=== PATIENT | male | born 1940 | race African-American/Black ===

== ENCOUNTER 2019-06-22 14:11 | Emergency (ER) | payer MEDICARE ==
--- NOTE | 2019-06-22 14:24 | ER Document Report ---
ED Medical Screen (RME) - General Chief Complaint: Neck Swelling Stated Complaint: NECK SWELLING Time Seen by Provider: 06/22/19 14:18 - HPI Notes: 06/22/19 14:22 Patient is a 78-year-old male with a history of diabetes and hypertension who presents complaining of swelling underneath the right side of his jaw for 4 days without significant pain or discomfort. Patient was seen at an urgent care and they wanted him sent here for evaluation and CT imaging. He is otherwise able to eat and drink without difficulty. Denies drug allergies. No other concerns or complaints. No fever. I have treated and performed a rapid initial assessment of this patient. A comprehensive ED assessment and evaluation of the patient, analysis of test results and completion of medical decision making process will be conducted by additional ED providers. PHYSICAL EXAMINATION: GENERAL: Well-appearing, well-nourished and in no acute distress. A&Ox4. Answers questions appropriately. Neck: + somewhat large swelling/mass to the rt submandibular that is firm and non-tender. No pulsation. No subungual swelling or tenderness. No submental swelling. No tongue protrusion or airway compromise noted. No drooling/hoarseness. - Related Data Allergies/Adverse Reactions: No Known Allergies Allergy (Unverified 06/22/19 14:17) Physical Exam - Vital signs Vitals: Temp Pulse Resp BP Pulse Ox 98 F 100 16 143/73 H 100 06/22/19 14:16 06/22/19 14:16 06/22/19 14:16 06/22/19 14:16 06/22/19 14:16 Course - Vital Signs Vital signs: Temp Pulse Resp BP Pulse Ox 98 F 100 16 143/73 H 100 06/22/19 14:16 06/22/19 14:16 06/22/19 14:16 06/22/19 14:16 06/22/19 14:16
[2019-06-22 14:57] LABS: ABSOLUTE EOSINOPHILS # (AUTO) 0.3 10^3/uL (0.0-0.6); ABSOLUTE LYMPHOCYTES (AUTO) 1.4 10^3/uL (0.5-4.7); ABSOLUTE MONOCYTES (AUTO) 0.6 10^3/uL (0.1-1.4); ABSOLUTE NEUT (AUTO) 3.9 10^3/uL (1.7-8.2); BASOPHILS % (AUTO) 0.8 % (0-2); EOSINOPHILS % (AUTO) 4.7 % (0-6); HEMATOCRIT 39.3 % (37.9-51.0); HEMOGLOBIN 12.5 g/dL (13.5-17.0); LYMPHOCYTES % (AUTO) 22.4 % (13-45); MEAN CORPUSCULAR HGB CONC 31.9 g/dL (32.0-36.0); MEAN CORPUSCULAR VOLUME 82 fl (80-97); MONOCYTES % (AUTO) 9.7 % (3-13); PLATELET COUNT 251 10^3/uL (150-450); RED BLOOD COUNT 4.81 10^6/uL (4.35-5.55); RED CELL DISTRIBUTION WIDTH 14.4 % (11.5-14.0); SEGMENTED NEUTROPHILS % (AUTO) 62.4 % (42-78); TOTAL CELLS COUNTED % (AUTO) 100 %; WHITE BLOOD COUNT 6.3 10^3/uL (4.0-10.5)
[2019-06-22 15:10] LABS: ALBUMIN 4.3 g/dL (3.5-5.0); ALKALINE PHOSPHATASE 101 U/L (38-126); ANION GAP 11 (5-19); ASPARTATE AMINO TRANSFERASE 19 U/L (17-59); BILIRUBIN,DIRECT 0.1 mg/dL (0.0-0.4); BILIRUBIN,TOTAL 0.2 mg/dL (0.2-1.3); BLOOD UREA NITROGEN 28 mg/dL (7-20); CALCIUM 10.3 mg/dL (8.4-10.2); CARBON DIOXIDE 25 mmol/L (22-30); CHLORIDE 108 mmol/L (98-107); POTASSIUM 4.8 mmol/L (3.6-5.0); TOTAL PROTEIN 8.1 g/dL (6.3-8.2)
[2019-06-22 15:14] LABS: GLUCOSE 60 mg/dL (75-110)
--- NOTE | 2019-06-22 15:33 | ER Document Report ---
ED General - General Chief Complaint: Jaw Pain Stated Complaint: NECK SWELLING Time Seen by Provider: 06/22/19 14:18 Mode of Arrival: Ambulatory Information source: Patient Notes: 78-year-old male with history of diabetes high cholesterol hypertension presents emergency department with swelling under the right side of his jaw. Reports it started approximately 6 days ago. He reports he has pain when he is chewing on that side and it hurts to swallow. He is able to chew on the other side without pain but it still hurts to swallow. Denies fever vomiting diarrhea. Patient is just moving here from [place]. Has not been established with a primary care provider yet. He went to an urgent care and they sent him here for a CT. patient reports he swallows liquids without problems. He reports this never happened to him before. - HPI Onset: Other - 6 days Onset/Duration: Persistent Associated symptoms: None Exacerbated by: Food Relieved by: Denies Similar symptoms previously: Yes Recently seen / treated by doctor: Yes - Related Data Allergies/Adverse Reactions: No Known Allergies Allergy (Unverified 06/22/19 14:17) Past Medical History - General Information source: Patient - Social History Smoking Status: Former Smoker Chew tobacco use (# tins/day): No Frequency of alcohol use: None Drug Abuse: None Lives with: Family Family History: None Patient has suicidal ideation: No Patient has homicidal ideation: No - Past Medical History Cardiac Medical History: Reports: Hx Hypercholesterolemia, Hx Hypertension Endocrine Medical History: Reports: Hx Diabetes Mellitus Type 2 GI Medical History: Reports: Hx Ulcer Surgical Hx: Negative Review of Systems - Review of Systems Notes: Review HPI for review of systems., All other systems negative Physical Exam - Vital signs Vitals: Temp Pulse Resp BP Pulse Ox 98 F 100 16 143/73 H 100 06/22/19 14:16 06/22/19 14:16 06/22/19 14:16 06/22/19 14:16 06/22/19 14:16 - General General appearance: Appears well, Alert In distress: None - HEENT Head: Normocephalic Eyes: Normal Conjunctiva: Normal Mouth/Lips: Normal Mucous membranes: Moist Pharynx: Normal. No: Erythema Neck: Lymphadenopathy, Supple - Respiratory Respiratory status: No respiratory distress Chest status: Nontender Breath sounds: Normal - Cardiovascular Rhythm: Regular Heart sounds: Normal auscultation - Abdominal Inspection: Normal Tenderness: Nontender - Extremities General upper extremity: Normal ROM General lower extremity: Normal ROM - Neurological Neuro grossly intact: Yes Cognition: Normal Orientation: AAOx4 Transfer Coma Scale Eye Opening: Spontaneous Transfer Coma Scale Verbal: Oriented Transfer Coma Scale Motor: Obeys Commands Transfer Coma Scale Total: 15 Speech: Normal Cranial nerves: Normal - Psychological Associated symptoms: Normal affect, Normal mood - Skin Skin Temperature: Warm Skin Moisture: Dry Skin Color: Normal Course - Re-evaluation Re-evalutation: 06/22/19 17:03 This 78-year-old male with history of diabetes high blood pressure high cholesterol presents emergency department swelling under the right side of his jaw that he reports just started 6 days ago. No erythema no warmth no pustule to the site no induration. CT shows enlarged right submandibular gland with 2 salivary stones. The patient and his son were instructed on this. They were given information on the importance of monitoring the site for signs of infection. They were also instructed on treatment. They verbalized understanding to all instructions. Her Renal function is 28/1.88 no history of CHF lungs clear patient will receive a liter of fluid to hydrate him. The patient and his son were instructed on the importance of becoming established with a primary care provider if he intends on living in this area to monitor his kidney function and diabetes. They both verbalized understanding. 06/22/19 14:45 06/22/19 14:45 MCV 82 fl (80-97) 06/22/19 14:45 MCH 26.0 pg (27.0-33.4) L 06/22/19 14:45 MCHC 31.9 g/dL (32.0-36.0) L 06/22/19 14:45 RDW 14.4 % (11.5-14.0) H 06/22/19 14:45 Seg Neutrophils % 62.4 % (42-78) 06/22/19 14:45 Chloride 108 mmol/L (98-107) H 06/22/19 14:45 Carbon Dioxide 25 mmol/L (22-30) 06/22/19 14:45 Anion Gap 11 (5-19) 06/22/19 14:45 Est GFR ( Amer) 42 (>60) L 06/22/19 14:45 Glucose 60 mg/dL (75-110) L 06/22/19 14:45 Calcium 10.3 mg/dL (8.4-10.2) H 06/22/19 14:45 Total Bilirubin 0.2 mg/dL (0.2-1.3) 06/22/19 14:45 AST 19 U/L (17-59) 06/22/19 14:45 Alkaline Phosphatase 101 U/L (38-126) 06/22/19 14:45 Total Protein 8.1 g/dL (6.3-8.2) 06/22/19 14:45 Albumin 4.3 g/dL (3.5-5.0) 06/22/19 14:[address] 06/22/19 14:24 IMPRESSION: Asymmetrically enlarged right submandibular gland with 2 sialolith s, largest measuring 11 x 8 mm. No lymphadenopathy or focal drainable collections. 06/22/19 17:10 - Vital Signs Vital signs: Temp Pulse Resp BP Pulse Ox 98.1 F 99 16 147/89 H 99 06/22/19 19:55 06/22/19 19:59 06/22/19 14:16 06/22/19 19:55 06/22/19 19:55 - Laboratory Result Diagrams: 06/22/19 14:45 06/22/19 14:45 Laboratory results interpreted by me: 06/22/19 06/22/19 14:45 14:45 Hgb 12.5 L MCH 26.0 L MCHC 31.9 L RDW 14.4 H Chloride 108 H BUN 28 H Creatinine 1.88 H Est GFR ( Amer) 42 L Est GFR (MDRD) Non-Af 35 L Glucose 60 L Calcium 10.3 H - Diagnostic Test Radiology reviewed: Image reviewed, Reports reviewed Discharge - Discharge Clinical Impression: Submandibular swelling, Parotitis Condition: Stable Disposition: HOME, SELF-CARE Instructions: Family Physicians / Practices, Intravenous (IV) Fluids ([facility]), Acute Parotid Gland Swelling ([facility]) Additional Instructions: *You have been evaluated for swelling under your jaw, parotitis *Drink lots of fluids *Gently massage the swollen area *Suck on sour or lemon flavored candy *Take tylenol or motrin for pain as indicated * Monitor the site for signs of infection such as redness, increased pain, warmth *Follow-up with a primary care provider within one week to become established to recheck the swelling, monitor your diabetes your kidney function and full evaluation. *Return to ED for worsening condition change, needs Forms: Elevated Blood Pressure
--- NOTE | 2019-06-22 16:37 | RADIOLOGY REPORT (SQ) ---
EXAM DESCRIPTION: CT SOFT TISSUE NECK WITH COMPLETED DATE/TIME: 06/22/2019 4:14 pm REASON FOR STUDY: + Rt submandibular swelling/mass on exam COMPARISON: None. TECHNIQUE: Post IV contrasted scanning from skull base through lung apices with review of bone, soft tissue and lung windows. Reconstructed coronal and sagittal MPR images reviewed. All images stored on PACS. All CT scanners at this facility use dose modulation, iterative reconstruction, and/or weight based d osing when appropriate to reduce radiation dose to as low as reasonably achievable (ALARA). [facility]: Dose Right [facility]: CareDose [facility]: Dose Right [facility]: Teradose 4D [facility]: [place] CONTRAST TYPE AND DOSE: 75 ccOmnipaque 300 RENAL FUNCTION: Creatinine 1.8 RADIATION DOSE: CT Rad equipment meets quality standard of care and radiation dose reduction techniq ues were employed. CTDIvol: 12.4 mGy. DLP: 439 mGy-cm. mGy. LIMITATIONS: None. FINDINGS: SKULL BASE: Intact. MAJOR SALIVARY GLANDS: Asymmetric enlargement of the right submandibular gland. There are 2 calcific ations within the right submandibular gland, largest measuring 11 x 8 mm (series 4, image 52). LYMPHADENOPATHY: No adenopathy. MUCOSAL MASSES OR ASYMMETRY: No mucosal masses or asymmetry. LARYNX/CORDS: No abnormal findings. VASCULAR STRUCTURES: The major vessels are patent. LUNG APICES: Clear. BONES: Intact. THYROID: Normal size. No masses. PARANASAL SINUSES: For mild polypoid mucosal thickening in the maxillary sinuses. Remaining sinuses are clear. OTHER: Maxillary denture. Multiple additional missing teeth noted. IMPRESSION: Asymmetrically enlarged right submandibular gland with 2 sialoliths, largest measuring 1 1 x 8 mm. No lymphadenopathy or focal drainable collections. TECHNICAL DOCUMENTATION: JOB ID: [id number] [facility] [id number]: Final reports with documentation of one or more dose reduction techniques (e.g., Automate d exposure control, adjustment of the mA and/or kV according to patient size, use of iterative recons truction technique) 2010 [employer]- All Rights Reserved Reading location - IP/workstation name: [facility]
[2019-06-22] MEDS ORDERED: NORMAL SALINE 1000 ML 1,000 ML IV ONE (16:50)
[2019-06-22 20:00] VITALS: BP 147/89
== END 2019-06-22 19:59 | disposition home or self-care (01) ==
LOC: ER 14:11
DX: K11.20 Sialoadenitis, unspecified (principal); R68.84 Jaw pain; R22.0 Localized swelling, mass and lump, head; E78.00 Pure hypercholesterolemia, unspecified; I10 Essential (primary) hypertension; E11.9 Type 2 diabetes mellitus without complications
CPT/HCPCS: 36415; 85025; 80053; 70491; J7030; 99284

== ENCOUNTER 2020-02-10 00:42 | Inpatient (IN) | payer MEDICARE ==
[2020-02-10 02:01] LABS: ABSOLUTE EOSINOPHILS # (AUTO) 0.2 10^3/uL (0.0-0.6); ABSOLUTE LYMPHOCYTES (AUTO) 1.9 10^3/uL (0.5-4.7); ABSOLUTE MONOCYTES (AUTO) 0.8 10^3/uL (0.1-1.4); ABSOLUTE NEUT (AUTO) 6.7 10^3/uL (1.7-8.2); BASOPHILS % (AUTO) 0.5 % (0-2); EOSINOPHILS % (AUTO) 2.6 % (0-6); HEMATOCRIT 38.2 % (37.9-51.0); HEMOGLOBIN 12.3 g/dL (13.5-17.0); LYMPHOCYTES % (AUTO) 19.4 % (13-45); MEAN CORPUSCULAR HEMOGLOBIN 26.1 pg (27.0-33.4); MEAN CORPUSCULAR HGB CONC 32.1 g/dL (32.0-36.0); MEAN CORPUSCULAR VOLUME 81 fl (80-97); MONOCYTES % (AUTO) 7.9 % (3-13); PLATELET COUNT 345 10^3/uL (150-450); RED CELL DISTRIBUTION WIDTH 15.8 % (11.5-14.0); SEGMENTED NEUTROPHILS % (AUTO) 69.6 % (42-78); TOTAL CELLS COUNTED % (AUTO) 100 %; WHITE BLOOD COUNT 9.6 10^3/uL (4.0-10.5)
--- NOTE | 2020-02-10 02:04 | ER Document Report ---
ED GI/ - General Chief Complaint: Nausea/Vomiting/Diarrhea Stated Complaint: SUGAR ISSUE/STOMACH PAINS Time Seen by Provider: 02/10/20 01:48 Primary Care Provider: JER BRANDT [NO LOCAL MD] - Follow up as needed Notes: CHIEF COMPLAINT: Abdominal discomfort and diarrhea HPI: 79-year-old male presenting to the emergency department complaining of some intermittent abdominal discomfort with diarrhea. Had 2-3 episodes of loose stools over the last 24 hours. States abdominal pain is somewhat generalized and seems to come and go. Patient does feel like his abdomen is slightly distended. Complains of mild low back pain. Has not had a fever. No dysuria. Patient states he was seen at a hospital in [place] earlier in the week for sores in the mouth and some swollen lymph nodes in the neck and was placed on a oral antibiotic he does not recall the name of. Patient reports a history of hypertension, type 1 diabetes, right ocular stroke, high cholesterol. Patient does report that the diarrhea and abdominal distress seem to start after starting the antibiotic. Patient also reports a history of reflux with gastric ulcers ROS: See HPI - all other systems were reviewed and are otherwise negative Constitutional: no fever Eyes: no drainage, no blurred vision ENT: no runny nose, no sore throat Cardiovascular: no chest pain Resp: no SOB, no cough GI: no vomiting, + diarrhea, + abdominal pain : no dysuria Integumentary: no rash Allergy: no hives Musculoskeletal: no extremity pain or swelling Neurological: no numbness/tingling, no weakness MEDICATIONS: I agree with the patient medications as charted by the RN. ALLERGIES: I agree with the allergies as charted by the RN. PAST MEDICAL HISTORY/PAST SURGICAL HISTORY: Reviewed and agree as charted by RN. SOCIAL HISTORY: Reviewed and agree as charted by RN. FAMILY HISTORY: No significant familial comorbid conditions directly related to patient complaint EXAM: Reviewed vital signs as charted by RN. CONSTITUTIONAL: Alert and oriented and responds appropriately to questions. Well-appearing; well-nourished HEAD: Normocephalic; atraumatic EYES: PERRL; Conjunctivae clear, sclerae non-icteric ENT: normal nose; no rhinorrhea; moist mucous membranes; pharynx without lesions noted, no uvula edema or deviation, no tonsillar hypertrophy, phonation normal NECK: Supple without meningismus; non-tender; mild right anterior cervical lymphadenopathy, no masses CARD: RRR; no murmurs, no clicks, no rubs, no gallops; symmetric distal pulses RESP: Normal chest excursion without splinting or tachypnea; breath sounds clear and equal bilaterally; no wheezes, no rhonchi, no rales, pulse oximetry 96% on room air not hypoxic ABD/GI: Normal bowel sounds; mildly distended; soft, non-tender, no rebound, no guarding; no palpable organomegaly or masses. BACK: The back appears normal and is non-tender to palpation, there is no CVA tenderness EXT: Normal ROM in all joints; non-tender to palpation; no cyanosis, no effusions, no edema SKIN: Normal color for age and race; warm; dry; good turgor; no acute lesions noted NEURO: Moves all extremities equally; Motor and sensory function intact PSYCH: The patient's mood and manner are appropriate. Grooming and personal hygiene are appropriate. MDM: 79-year-old male presenting for intermittent abdominal pain with some diarrhea that began after starting antibiotics for some oral ulcers. Does not recall the name of the antibiotic he is taking. Does report a prior history of gastric ulcers. Patient reports some abdominal distention. He does appear to be slightly distended on exam without knowing his baseline exam. Screening labs obtained by nursing via triage process will add CT imaging to evaluate for colitis or other intra-abdominal surgical or infectious processes - Related Data Allergies/Adverse Reactions: No Known Allergies Allergy (Unverified 06/22/19 14:17) Past Medical History - Social History Smoking Status: Never Smoker Family History: None Patient has homicidal ideation: No - Past Medical History Cardiac Medical History: Reports: Hx Hypercholesterolemia, Hx Hypertension Endocrine Medical History: Reports: Hx Diabetes Mellitus Type 2 GI Medical History: Reports: Hx Ulcer Physical Exam - Vital signs Vitals: Temp Pulse Resp BP Pulse Ox 97.6 F 102 H 20 137/81 H 98 02/10/20 01:04 02/10/20 01:04 02/10/20 01:04 02/10/20 01:04 02/10/20 01:04 Course - Re-evaluation Re-evalutation: 02/10/20 02:38 Patient's lactic acid was 2.5. This may be from dehydration given his recent complaints of diarrhea and nonfocal abdominal exam. Will aggressively hydrate, recheck lactic acid after hydration 02/10/20 04:08 I received a call from the reading radiologist, concerned about a sigmoid volvulus. I spoke with Dr. Mathew the surgeon, he will come down to see the pat ient. He does request a 30 chest tube as we will need to place a rectal tube. Discussed with Dr. Sands attending 02/10/20 04:55 Dr. Mathew at bedside to evaluate patient, admit to his service. - Vital Signs Vital signs: Temp Pulse Resp BP Pulse Ox 97.6 F 102 H 20 137/81 H 98 02/10/20 01:16 02/10/20 01:04 02/10/20 01:04 02/10/20 01:04 02/10/20 01:04 - Laboratory Result Diagrams: 02/10/20 01:39 02/10/20 01:39 Laboratory results interpreted by me: 02/10/20 02/10/20 02/10/20 01:39 01:39 01:52 Hgb 12.3 L MCH 26.1 L RDW 15.8 H Carbon Dioxide 20 L BUN 24 H Creatinine 1.62 H Est GFR ( Amer) 50 L Est GFR (MDRD) Non-Af 41 L Glucose 171 H POC Glucose 127 H Lactic Acid Alkaline Phosphatase 128 H 02/10/20 02:06 Hgb MCH RDW Carbon Dioxide BUN Creatinine Est GFR ( Amer) Est GFR (MDRD) Non-Af Glucose POC Glucose Lactic Acid 2.5 H Alkaline Phosphatase Discharge - Discharge Clinical Impression: Volvulus of sigmoid colon Condition: Stable Disposition: ADMITTED INPATIENT Admitting Provider: Manishaist Kiesha Mathew Unit Admitted: Surgical Floor Referrals: LOCALMD,NO [NO LOCAL MD] - Follow up as needed
[2020-02-10 02:25] LABS: ALBUMIN 3.8 g/dL (3.5-5.0); ALKALINE PHOSPHATASE 128 U/L (38-126); ANION GAP 14 (5-19); ASPARTATE AMINO TRANSFERASE 26 U/L (17-59); BILIRUBIN,DIRECT 0.1 mg/dL (0.0-0.4); BILIRUBIN,TOTAL 0.4 mg/dL (0.2-1.3); BLOOD UREA NITROGEN 24 mg/dL (7-20); CALCIUM 9.3 mg/dL (8.4-10.2); CARBON DIOXIDE 20 mmol/L (22-30); CHLORIDE 107 mmol/L (98-107); GLUCOSE 171 mg/dL (75-110); POTASSIUM 3.6 mmol/L (3.6-5.0); TOTAL PROTEIN 8.2 g/dL (6.3-8.2)
[2020-02-10] MEDS ORDERED: NORMAL SALINE 1000 ML 1,000 ML IV ONE (02:29)
[2020-02-10] MEDS ORDERED: RINGERS SOLUTION,LACTATED 1,000 ML IV ONE (02:38)
[2020-02-10] MEDS ORDERED: ONDANSETRON HCL INJ/PF 4 MG/2 ML SDV IV ONE (03:00)
--- NOTE | 2020-02-10 03:56 | RADIOLOGY REPORT (SQ) ---
EXAM DESCRIPTION: RadLex: CT ABDOMEN PELVIS WITH IV CONTRAST CLINICAL HISTORY: 79 years Male; abd distention; TECHNIQUE: CT of the abdomen and pelvis using intravenous contrast. All CT scans at this facility use dose modulation, iterative reconstruction, and/or weight based dosing when appropriate to reduce radiation dose to as low as reasonably achievable. COMPARISON: None. FINDINGS: Abdomen: Stomach: No significant distention or surrounding edema. Liver:No focal lesions. No intrahepatic ductal distention. Gallbladder:Nondistended Pancreas:Within normal limits Spleen:Within normal limits Right kidney:No hydronephrosis. No focal lesion. Left kidney: Exophytic lower pole cyst 6.2 cm diameter. No hydronephrosis. Adrenal glands:Within normal limits Vascular structures:Within normal limits Pelvis: Small bowel: Mild moderately distended segments, especially in the distal small bowel, with scattered air-fluid levels. Appendix:Within normal limits Colon: There is significant distention of the majority of the colon, with transition point in the sigmoid colon. Maximum diameter is approximately 8 cm. No pneumatosis or focal wall thickening. The configuration of the transition point suggests internal hernia. There is only slight mesenteric rotation. No free intraperitoneal fluid or air. Bones: Chronic degenerative changes throughout the lumbar spine. L5-S1: Irregular mixed lytic sclerotic changes in the S1 superior endplate. No associated prevertebral edema. Degree of central canal stenosis cannot be reliably assessed due to artifact. Bladder: Unremarkable. Prostate: Enlarged, 5.3 cm wide. IMPRESSION: 1. Colonic obstruction with transition point in the sigmoid colon, indeterminate for sigmoid volvulus versus an internal hernia (although likely sigmoid volvulus). Maximum colonic diameter (at the cecum) 8 cm. 2. No perforation or abscess. 3. Other chronic findings as described.
[2020-02-10] MEDS ORDERED: ONDANSETRON HCL INJ/PF 4 MG/2 ML SDV IV PRN (05:14)
[2020-02-10] MEDS ORDERED: DEXTROSE 50%-WATER 25 GM/50 ML DISP.SYRIN IV PRN ×2 (05:18)
[2020-02-10] MEDS ORDERED: DEXTROSE 40% GEL 15 GM TUBE PO PRN ×2 (05:18)
[2020-02-10] MEDS ORDERED: GLUCAGON,HUMAN RECOMB 1 MG INJ IM PRN (05:18)
--- NOTE | 2020-02-10 06:02 | RADIOLOGY REPORT (SQ) ---
ABDOMINAL RADIOGRAPH: 02/10/2020 5:01 AM CDT COMPARISON: CT of abdomen and pelvis from 02/10/2020 TECHNIQUE: A single radiograph of the abdomen was obtained. HISTORY: 79-year old with abdominal pain. FINDINGS: Only the lower abdomen was included on this examination. The lung bases were not fully included on this examination. The visualized bowel gas pattern is nonspecific and nonobstructive. No abnormal intra-abdominal calcifications are seen. There are no findings to suggest organomegaly. There is a moderate amount of stool projecting throughout the colon. There is a tube overlying the midline abdomen. Multilevel degenerative changes are seen within the lumbar spine. IMPRESSION: The bowel gas pattern is nonobstructive and nonspecific.
[2020-02-10 07:17] LABS: APPEARANCE,URINE CLEAR; BILIRUBIN,URINE NEGATIVE (NEGATIVE); COLOR,URINE YELLOW; GLUCOSE, URINE NEGATIVE (NEGATIVE); KETONES,URINE NEGATIVE (NEGATIVE); LEUKOCYTE ESTERASE,URINE NEGATIVE (NEGATIVE); NITRITE,URINE NEGATIVE (NEGATIVE); PROTEIN,URINE 30 mg/dL (NEGATIVE); UROBILINOGEN,URINE NEGATIVE mg/dL (<2.0)
[2020-02-10] MEDS: INSULIN LISPRO 100 UNIT/ML 3 ML VIAL SUBCUT SCH ×4 (08:35→22:00)
--- NOTE | 2020-02-10 10:51 | Operative Report ---
Nonrecallable Operative Report DATE OF SURGERY: 02/10/20 PREOPERATIVE DIAGNOSIS: Sigmoid volvulus POSTOPERATIVE DIAGNOSIS: Same as above OPERATION: Placement of rectal tube for sigmoid volvulus/colonic decompression SURGEON: CHARLIE MCDONOUGH ANESTHESIA: Other - None TISSUE REMOVED OR ALTERED: None COMPLICATIONS: None apparent ESTIMATED BLOOD LOSS: None PROCEDURE: Drains/implants 30 Faroese chest tube inserted into rectum. Procedure in detail: After informed consent was obtained from the patient, he was laid in the left lateral decubitus position in the emergency room. Using a large amount of water-soluble lubricant, and a 30 [place]oese chest tube was very carefully inserted into the anus, and up the rectum. A large reveles of air was noted. The rectal tube was then secured in place using silk tape. The patient's abdominal distention immediately resolved. The patient tolerated the procedure well. The procedure was concluded. Condition: Fair.
--- NOTE | 2020-02-10 10:59 | PDOC H&P ---
History of Present Illness Patient complains of: Abdominal distention and pain History of Present Illness: CHRISTY CANO is a 79 year old male with a history of well-controlled diabetes and hypertension (controlled with medications). The patient reports a 1 day history of abdominal distention and discomfort. This is a new finding. He has never experienced symptoms like this before. His pain and distention occur throughout the abdominal cavity. He rates his pain as 2 out of 10. It is dull and aching. His main complaint is abdominal distention, which is severe. Nothing makes his symptoms better or worse. The patient last passed flatus 12 to 18 hours ago. His last bowel movement was 2 days ago. The patient denies chest pain, shortness of breath, fevers, chills, orthostasis, dizziness, malaise, fatigue, melena, hematochezia, hematemesis. He does report nausea without vomiting. Past Medical History Cardiac Medical History: Reports: Hyperlipidema, Hypertension Endocrine Medical History: Reports: Diabetes Mellitus Type 2 Social History Smoking Status: Never Smoker Frequency of Alcohol Use: None Hx Recreational Drug Use: No Hx Prescription Drug Abuse: No Family History Family History: None Parental Family History Reviewed: Yes Children Family History Reviewed: Yes Sibling(s) Family History Reviewed.: Yes Medication/Allergy Allergies/Adverse Reactions: No Known Allergies Allergy (Unverified 06/22/19 14:17) Review of Systems Constitutional: ABSENT: anorexia, chills, fatigue, fever(s), headache(s) Eyes: ABSENT: visual disturbances Ears: ABSENT: hearing changes Nose, Mouth, and Throat: ABSENT: sore throat Cardiovascular: ABSENT: chest pain Respiratory: ABSENT: cough, dyspnea Gastrointestinal: PRESENT: abdominal pain, bloating, constipation, nausea. ABS ENT: hematemesis, hematochezia, melena, vomiting Genitourinary: ABSENT: dysuria Musculoskeletal: ABSENT: back pain Integumentary: ABSENT: pruritus, rash Neurological: ABSENT: confusion, convulsions, dizziness Psychiatric: ABSENT: anxiety, depression Endocrine: ABSENT: cold intolerance, heat intolerance Hematologic/Lymphatic: ABSENT: easy bleeding, easy bruising Physical Exam Vital Signs: Temp Pulse Resp BP Pulse Ox 97.6 F 102 H 20 137/81 H 98 02/10/20 01:16 02/10/20 01:04 02/10/20 01:04 02/10/20 01:04 02/10/20 01:04 Intake & Output 02/08/20 02/09/20 02/10/20 06:59 06:59 06:59 Weight 77.6 kg General appearance: PRESENT: no acute distress, cooperative. ABSENT: disheveled Head exam: PRESENT: atraumatic, normocephalic Eye exam: PRESENT: EOMI, PERRLA. ABSENT: scleral icterus Mouth exam: PRESENT: moist, neck supple Neck exam: ABSENT: meningismus, tenderness, thyromegaly, tracheal deviation Respiratory exam: PRESENT: unlabored. ABSENT: tachypnea, wheezes Cardiovascular exam: PRESENT: RRR Vascular exam: PRESENT: normal capillary refill GI/Abdominal exam: PRESENT: distended - Severe distention, firm - Related to severe distention, soft, tenderness - mild. ABSENT: guarding, rebound Rectal exam: PRESENT: deferred Extremities exam: ABSENT: clubbing Musculoskeletal exam: ABSENT: deformity Neurological exam: PRESENT: alert, awake, oriented to person, oriented to place, oriented to time, oriented to situation, CN II-XII grossly intact. ABSENT: motor sensory deficit Psychiatric exam: ABSENT: agitated, anxious, depressed Focused psych exam: ABSENT: delusional Skin exam: ABSENT: cyanosis, erythema, jaundice Results Laboratory Results: 02/10/20 01:39 02/10/20 01:39 02/10/20 02/10/20 02/10/20 01:39 01:39 01:39 WBC 9.6 RBC 4.70 Hgb 12.3 L Hct 38.2 MCV 81 MCH 26.1 L MCHC 32.1 RDW 15.8 H Plt Count 345 Seg Neutrophils % 69.6 Sodium 140.7 Potassium 3.6 Chloride 107 Carbon Dioxide 20 L Anion Gap 14 BUN 24 H Creatinine 1.62 H Est GFR ( Amer) 50 L Glucose 171 H Lactic Acid Calcium 9.3 Total Bilirubin 0.4 AST 26 Alkaline Phosphatase 128 H Total Protein 8.2 Albumin 3.8 Lipase 96.9 02/10/20 02:06 WBC RBC Hgb Hct MCV MCH MCHC RDW Plt Count Seg Neutrophils % Sodium Potassium Chloride Carbon Dioxide Anion Gap BUN Creatinine Est GFR ( Amer) Glucose Lactic Acid 2.5 H Calcium Total Bilirubin AST Alkaline Phosphatase Total Protein Albumin Lipase Impressions: Abdomen/Pelvis CT 02/10/20 01:59 IMPRESSION: 1. Colonic obstruction with transition point in the sigmoid colon, indeterminate for sigmoid volvulus versus an internal hernia (although likely sigmoid volvulus). Maximum colonic diameter (at the cecum) 8 cm. 2. No perforation or abscess. 3. Other chronic findings as described. Assessment & Plan - Diagnosis (1) Volvulus of sigmoid colon Is this a current diagnosis for this admission?: Yes - Plan Summary Plan Summary: This is a 79-year-old male with obstipation and a CT scan concerning for sigmoid volvulus. I will admit the patient to the hospital. I will place a rectal tube for decompressive purposes. If the rectal tube is unsuccessful, the patient may require decompressive colonoscopy. Due to the high recurrence rate of sigmoid volvulus, I have recommended sigmoidectomy for the patient. He wishes to discuss his options with his family before making any decisions. I will keep him n.p.o. for now, and plan to place a rectal tube at bedside. Further recommendations will depend on the patient's clinical course.
[2020-02-10] MEDS: NORMAL SALINE 1000 ML 1,000 ML IV PRN (20:22)
[2020-02-11] MEDS: NORMAL SALINE 1000 ML 1,000 ML IV PRN ×2 (03:29→10:51)
[2020-02-11 05:20] LABS: ABSOLUTE EOSINOPHILS # (AUTO) 0.3 10^3/uL (0.0-0.6); ABSOLUTE LYMPHOCYTES (AUTO) 1.6 10^3/uL (0.5-4.7); ABSOLUTE MONOCYTES (AUTO) 0.9 10^3/uL (0.1-1.4); BASOPHILS % (AUTO) 0.4 % (0-2); EOSINOPHILS % (AUTO) 3.1 % (0-6); HEMATOCRIT 32.8 % (37.9-51.0); HEMOGLOBIN 10.6 g/dL (13.5-17.0); LYMPHOCYTES % (AUTO) 16.1 % (13-45); MEAN CORPUSCULAR HGB CONC 32.5 g/dL (32.0-36.0); MEAN CORPUSCULAR VOLUME 80 fl (80-97); MONOCYTES % (AUTO) 9.5 % (3-13); PLATELET COUNT 276 10^3/uL (150-450); RED BLOOD COUNT 4.09 10^6/uL (4.35-5.55); RED CELL DISTRIBUTION WIDTH 15.4 % (11.5-14.0); SEGMENTED NEUTROPHILS % (AUTO) 70.9 % (42-78); TOTAL CELLS COUNTED % (AUTO) 100 %; WHITE BLOOD COUNT 9.9 10^3/uL (4.0-10.5)
[2020-02-11 05:51] LABS: ANION GAP 5 (5-19); BLOOD UREA NITROGEN 22 mg/dL (7-20); CALCIUM 8.6 mg/dL (8.4-10.2); CARBON DIOXIDE 21 mmol/L (22-30); CHLORIDE 115 mmol/L (98-107); GLUCOSE 131 mg/dL (75-110)
[2020-02-11] MEDS: INSULIN LISPRO 100 UNIT/ML 3 ML VIAL SUBCUT SCH ×4 (07:47→21:34)
[2020-02-11] MEDS ORDERED: POLYETHYLENE GLYCOL 3350 POWDER 17 GM/1 PACKET PO ONE ×3 (09:00→21:30)
--- NOTE | 2020-02-11 14:15 | PDOC CONSULTATION ---
Consultation Consult Date: 02/11/20 Attending physician:: JODIE MAURICIO Provider Consulted: INGRID CHRISTIANSON Consult reason:: Medical management History of Present Illness Admission Date/PCP: 02/10/20 05:09 Patient complains of: Peter pain History of Present Illness: CHRISTY CANO is a 79 year old male who recently lost his . He has moved to [place] from [place] to be with his son. He states that over the last several days he has noticed decreased appetite. Yesterday he began to have increased pain and bloating in the abdomen. He had diarrhea but did not notice any blood. He denied fever and chills but he did report nausea. As the pain worsens his son brought him to the emergency department. He has a history of hypertension and diabetes. Ridging studies suggests sigmoid volvulus. We have been asked to consult for medical management. Past Medical History Cardiac Medical History: Reports: Hyperlipidema, Hypertension Endocrine Medical History: Reports: Diabetes Mellitus Type 2 Psychiatric Medical History: Denies: Depression Past Surgical History Past Surgical History: Reports: Orthopedic Surgery - Right foot and left wrist Social History Information Source: Patient Lives with: Family Smoking Status: Former Smoker - Stopped smoking and drinking 32 years ago Electronic Cigarette use?: No Frequency of Alcohol Use: None - Stopped smoking and drinking 32 years ago Hx Recreational Drug Use: No Hx Prescription Drug Abuse: No - Advance Directive Resuscitation Status: Full Code Surrogate healthcare decision maker:: His son would be the dedicated decision maker Family History Family History: CAD, DM, Malignancy - Prostate cancer, Other - Alcoholism Parental Family History Reviewed: Yes Children Family History Reviewed: Yes Sibling(s) Family History Reviewed.: Yes Medication/Allergy Home Medications: Amlodipine Besylate [Norvasc 10 mg Tablet] 10 mg PO DAILY 02/10/20 Aspirin [Adult Low Dose Aspirin EC] 81 mg PO DAILY 02/10/20 Atorvastatin Calcium [Lipitor 40 mg Tablet] 40 mg PO QHS 02/10/20 Dorzolamide HCl/Pf [Dorzolamide 2% Eye Drop] 1 drop OU BID 02/10/20 Ferrous Sulfate [Feosol 325 mg Tablet] 325 mg PO DAILY 02/10/20 Insulin Aspart [Novolog Insulin (Aspart) 100 unit/mL] 5 units SQ WSUPPER 02/10/20 Insulin Detemir [Levemir] 15 units SQ QHS 02/10/20 L.acidoph,Paracasei, B.lactis [Probiotic] 1 cap PO DAILY 02/10/20 Latanoprost [Xalatan 0.005% Oph Soln 2.5 ml] 1 drop OU QHS 02/10/20 Metoprolol Succinate [Toprol Xl 50 mg Tab.sr] 50 mg PO DAILY 02/10/20 Mirtazapine [Remeron 15 mg Tablet] 15 mg PO QHS 02/10/20 Pantoprazole Sodium [Protonix [address] Tablet] 40 mg PO QAM 02/10/20 Trazodone HCl [Desyrel 50 mg Tablet] 25 mg PO QHS 02/10/20 Allergies/Adverse Reactions: amoxicillin [From Amoxil] Allergy (Verified 02/10/20 13:43) Review of Systems All systems: reviewed and no additional remarkable complaints except as stated Constitutional: PRESENT: anorexia - Creased appetite Gastrointestinal: PRESENT: abdominal pain, bloating, nausea Genitourinary: PRESENT: nocturia Musculoskeletal: PRESENT: other - Painful left shoulder Physical Exam Vital Signs: Temp Pulse Resp BP Pulse Ox 98.4 F 87 12 134/75 H 96 02/11/20 07:43 02/11/20 07:43 02/11/20 07:43 02/11/20 07:43 02/11/20 07:43 Intake & Output 02/10/20 02/11/20 02/12/20 06:59 06:59 06:59 Intake Total 1000 1000 Output Total 2200 Balance -1200 1000 Weight 77.6 kg 78.6 kg General appearance: PRESENT: no acute distress, cooperative, well-developed, other - Patient wears glasses Head exam: PRESENT: atraumatic, normocephalic Eye exam: PRESENT: conjunctiva pink, EOMI. ABSENT: scleral icterus Ear exam: PRESENT: normal external ear exam. ABSENT: bleeding, drainage Mouth exam: PRESENT: dry mucosa, tongue midline Neck exam: ABSENT: carotid bruit, JVD, lymphadenopathy Respiratory exam: PRESENT: clear to auscultation shazia, symmetrical, unlabored. ABSENT: accessory muscle use, rales, rhonchi, tachypnea, wheezes Cardiovascular exam: PRESENT: RRR, +S1, +S2, systolic murmur - 3/6. ABSENT: bradycardia, diastolic murmur, irregular rhythm, tachycardia GI/Abdominal exam: PRESENT: distended, hypoactive bowel sounds, soft, tenderness - Patient is slightly tender in the left lower quadrant. He reports it is better than yesterday. Rectal exam: PRESENT: deferred Gentrourinary exam: ABSENT: indwelling catheter Extremities exam: ABSENT: joint swelling, pedal edema Musculoskeletal exam: PRESENT: ambulatory, normal inspection. ABSENT: deformity, dislocation Neurological exam: PRESENT: alert, awake, oriented to person, oriented to place, oriented to situation, CN II-XII grossly intact. ABSENT: altered Psychiatric exam: PRESENT: flat affect. ABSENT: agitated, anxious Focused psych exam: ABSENT: delusional, paranoid, restlessness Skin exam: PRESENT: dry, normal color, warm. ABSENT: rash Results Laboratory Results: 02/11/20 05:06 02/11/20 05:06 02/11/20 02/11/20 05:06 05:06 WBC 9.9 RBC 4.09 L Hgb 10.6 L Hct 32.8 L MCV 80 MCH 26.0 L MCHC 32.5 RDW 15.4 H Plt Count 276 Seg Neutrophils % 70.9 Sodium 141.1 Potassium 4.0 Chloride 115 H Carbon Dioxide 21 L Anion Gap 5 BUN 22 H Creatinine 1.52 H Est GFR ( Amer) 54 L Glucose 131 H Calcium 8.6 Impressions: KUB X-Ray 02/10/20 00:00 IMPRESSION: The bowel gas pattern is nonobstructive and nonspecific. Abdomen/Pelvis CT 02/10/20 01:59 IMPRESSION: 1. Colonic obstruction with transition point in the sigmoid colon, indeterminate for sigmoid volvulus versus an internal hernia (although likely sigmoid volvulus). Maximum colonic diameter (at the cecum) 8 cm. 2. No perforation or abscess. 3. Other chronic findings as described. Assessment and Plan - Diagnosis (1) Hypertension Qualifiers: Hypertension type: essential hypertension Qualified Code(s): I10 - Essential (primary) hypertension Is this a current diagnosis for this admission?: Yes Plan: 02/11/2020 I will resume the patient's antihypertensive medications but like parameters. We will likely need to make adjustments postoperatively. Vital signs every 4 hours. (2) Diabetes mellitus type 2 in nonobese Is this a current diagnosis for this admission?: Yes Plan: 02/11/2020 The patient is on long-acting insulin. We will use Accu-Cheks either before meals and at bedtime or every 6 hours if the patient is n.p.o. Will utilize a sliding scale only. His intake will be diminished over the next several days so we will need to monitor his glucose closely. (3) Acute kidney injury Is this a current diagnosis for this admission?: Yes Plan: 02/11/2020 Possibly related to the volvulus and decreased intake. The patient will be ge tting IV fluids per surgery. We will continue to monitor his renal function as well as intake and output. (4) Volvulus of sigmoid colon Is this a current diagnosis for this admission?: Yes Plan: 02/11/2020 Dr. Dixon plans to take patient to the operating room on Tuesday. Tomorrow will be used for bowel prep. - Plan Summary Summary: Thank you for allowing us to take care of this very pleasant 79-year-old surgical patient. We will continue to follow during his hospitalization and tru e adjustments in his medications based on the patient's clinical status, Accu- checks, vital signs and laboratory studies. - Time Time Spent with patient: 35 or more minutes Medications reviewed and adjusted accordingly: Yes
--- NOTE | 2020-02-11 19:44 | PDOC PROGRESS REPORT ---
Subjective Progress Note for:: 02/11/20 Subjective:: less abdominal distention and discomfort Having loose stools through the rectal tube after Miralax this am. Reason For Visit: SIGMOID VOLVULOUS Physical Exam Vital Signs: Temp Pulse Resp BP Pulse Ox 98.5 F 98 24 H 144/72 H 98 02/11/20 16:32 02/11/20 16:32 02/11/20 16:32 02/11/20 16:32 02/11/20 16:32 Intake & Output 02/10/20 02/11/20 02/12/20 06:59 06:59 06:59 Intake Total 1000 1000 Output Total 2200 500 Balance -1200 500 Weight 77.6 kg 78.6 kg GI/Abdominal exam: PRESENT: distended - mild, soft Rectal exam: PRESENT: other - liquid stool via rectal tube Results Laboratory Results: 02/11/20 05:06 02/11/20 05:06 02/11/20 02/11/20 05:06 05:06 WBC 9.9 RBC 4.09 L Hgb 10.6 L Hct 32.8 L MCV 80 MCH 26.0 L MCHC 32.5 RDW 15.4 H Plt Count 276 Seg Neutrophils % 70.9 Sodium 141.1 Potassium 4.0 Chloride 115 H Carbon Dioxide 21 L Anion Gap 5 BUN 22 H Creatinine 1.52 H Est GFR ( Amer) 54 L Glucose 131 H Calcium 8.6 Impressions: KUB X-Ray 02/10/20 00:00 IMPRESSION: The bowel gas pattern is nonobstructive and nonspecific. Abdomen/Pelvis CT 02/10/20 01:59 IMPRESSION: 1. Colonic obstruction with transition point in the sigmoid colon, indeterminate for sigmoid volvulus versus an internal hernia (although likely sigmoid volvulus). Maximum colonic diameter (at the cecum) 8 cm. 2. No perforation or abscess. 3. Other chronic findings as described. Assessment & Plan - Time Critical Time spent with patient: 15-24 minutes - Inpatient Certification Medical Necessity: Need For IV Fluids, Need for Surgery - Plan Summary Plan Summary: 79-year-old male with sigmoid volvulus. Rectal tube was placed yesterday by Dr. Mathew with less large bowel distention post placement. Patient claims his abdomen is less distended and denies any pains. He has liquid stools through the rectal tube after MiraLAX this morning. Explained procedure for sigmoid colectomy and possible colostomy to patient and his son. They would like to avoid colostomy if possible. Will try to continue patient on bowel prep and possible surgery Tuesday. Still awaiting final medical clearance from hospitalist.
[2020-02-11] MEDS: TRAZODONE HCL 50 MG TABLET PO SCH (21:34)
[2020-02-11] MEDS: ATORVASTATIN CALCIUM 40 MG TABLET PO SCH (21:34)
[2020-02-11] MEDS: MIRTAZAPINE 15 MG TABLET PO SCH (21:34)
[2020-02-11] MEDS: DORZOLAMIDE HCL 2% OPH SOLN 10 ML OU SCH (21:35)
[2020-02-11] MEDS: LATANOPROST 0.005% OPH SOLN 2.5 ML OU SCH (21:35)
--- NOTE | 2020-02-11 23:16 | XCELERA REPORT ---
[address] [address] Transthoracic Echocardiogram Report Name: CHRISTY CANO Age: 79 yrs Gender: Male : 1940 Patient Status: Inpatient Patient Location: [address] [place] [address] Study Date: 02/11/2020 11:33 AM Height: 71 in Weight: 173 lb BSA: 2.0 m2 Procedure: A complete two-dimensional transthoracic echocardiogram was performed (2D, M-mode, spectral and color flow Doppler). The study was technically adequate with some images being suboptimal in quality. Reason For Study: PRE SURGICAL CLEARANCE Ordering Physician: JODIE MAURICIO Performed By: Nelda Hager Interpretation Summary LEFT VENTRICLE: LV Systolic function: LVEF is felt to be within normal limits. Best estimate is approximately LVEF is 60 to 65%. LV Diastolic Function: Grade II diastolic dysfunction noted. Wall motion : No definite regional wall motion abnormalities are noted. Left ventricular chamber size : is within normal limit. Left ventricular wall thickness : is increased indicative of Mild LVH. RIGHT VENTRICLE: RV systolic function : is felt to be within normal limit. Right Ventricle Size : is within normal limits. LEFT ATRIUM size : is mildly dilated. RIGHT ATRIUM size : is within normal limit. INTER ATRIAL SEPTUM : No definite atrial septal defect noted however a small PFO could be missed. AORTIC ROOT : seems to be within normal limits. Ascending aorta is not well visualized. INFERIOR VENA CAVA: was not well visualized. VALVES: MITRAL VALVE : Leaflets are mildly thickened. Mobility seems to be within normal limits. Mitral Regurgitation : Trace mitral regurgitation is noted. Mitral Stenosis: No mitral stenosis noted. Mitral valve prolapse : none noted. AORTIC VALVE: seems to be trileaflet with mild thickening but adequate excursion. Aortic stenosis : No aortic stenosis noted. Aortic regurgitation : No aortic incompetence noted. TRICUSPID VALVE : mobility and structures within normal limit. Tricuspid stenosis : no tricuspid stenosis noted. Tricuspid regurgitation : Trace tricuspid regurgitation noted. Estimated RVSP : cannot be accurately commented upon but possibly at upper limit of normal. PULMONARY VALVE : was not well visualized but no significant abnormalities suspected. Pulmonary stenosis : no pulmonary stenosis noted. Pulmonary regurgitation : no significant pulmonary regurgitation noted. MASSES AND THROMBUS : No definite intracardiac thrombus or masses are noted. PERICARDIUM: No pericardial effusion was noted. IMPRESSION : 1. Normal LVEF. 2. Mild LVH noted 3. Grade II [mild] Diastolic Dysfunction noted. 4. No significant valvular stenosis or regurgitation noted. 5. LA is mildly dilated. MMode/2D Measurements & Calculations RVDd: 2.6 cm LVIDd: 4.6 cm FS: 41.3 % Ao root diam: 2.9 cm IVSd: 1.1 cm LVIDs: 2.7 cm EDV(Teich): 96.9 ml Ao root area: 6.5 cm2 LVPWd: 1.1 cm ESV(Teich): 27.0 ml LA dimension: 3.6 cm EF(Teich): 72.2 % Doppler Measurements & Calculations MV E max wellington: MV P1/2t max [place]: Ao V2 max: LV V1 max P.4 cm/sec 83.9 cm/sec 155.1 cm/sec 5.5 mmHg MV A max [place]: MV P1/2t: 55.0 msec Ao max PG: LV V1 max: 110.1 cm/sec MVA(P1/2t): 4.0 cm2 9.6 mmHg 117.5 cm/sec MV E/A: 0.77 MV dec slope: 447.0 cm/sec2 MV dec time: 0.18 sec PA V2 max: MV P1/2t-pr_phl: 99.2 cm/sec 55.0 msec PA max P.9 mmHg : JODIE MAURICIO Shyamal
[2020-02-12] MEDS: NORMAL SALINE 1000 ML 1,000 ML IV PRN ×2 (05:21→21:48)
[2020-02-12 05:42] LABS: ABSOLUTE EOSINOPHILS # (AUTO) 0.6 10^3/uL (0.0-0.6); ABSOLUTE MONOCYTES (AUTO) 0.8 10^3/uL (0.1-1.4); ABSOLUTE NEUT (AUTO) 4.2 10^3/uL (1.7-8.2); BASOPHILS % (AUTO) 0.6 % (0-2); EOSINOPHILS % (AUTO) 8.1 % (0-6); HEMATOCRIT 32.3 % (37.9-51.0); HEMOGLOBIN 10.5 g/dL (13.5-17.0); LYMPHOCYTES % (AUTO) 26.1 % (13-45); MEAN CORPUSCULAR HGB CONC 32.5 g/dL (32.0-36.0); MEAN CORPUSCULAR VOLUME 80 fl (80-97); MONOCYTES % (AUTO) 10.6 % (3-13); PLATELET COUNT 240 10^3/uL (150-450); RED BLOOD COUNT 4.04 10^6/uL (4.35-5.55); SEGMENTED NEUTROPHILS % (AUTO) 54.6 % (42-78); TOTAL CELLS COUNTED % (AUTO) 100 %; WHITE BLOOD COUNT 7.7 10^3/uL (4.0-10.5)
[2020-02-12 05:56] LABS: BLOOD UREA NITROGEN 18 mg/dL (7-20); CALCIUM 8.5 mg/dL (8.4-10.2); CARBON DIOXIDE 22 mmol/L (22-30); CHLORIDE 116 mmol/L (98-107); GLUCOSE 110 mg/dL (75-110); POTASSIUM 3.8 mmol/L (3.6-5.0)
[2020-02-12 05:57] LABS: ANION GAP 5 (5-19)
[2020-02-12] MEDS: INSULIN LISPRO 100 UNIT/ML 3 ML VIAL SUBCUT SCH ×4 (07:42→21:48)
[2020-02-12] MEDS: PANTOPRAZOLE SODIUM 40 MG TABLET.DR PO SCH (07:56)
[2020-02-12] MEDS: METOPROLOL SUCCINATE 50 MG TAB.SR.24H PO SCH (09:53)
[2020-02-12] MEDS: ASPIRIN 81 MG TABLET, ENT COATED PO SCH (09:53)
[2020-02-12] MEDS: FERROUS SULFATE 325 MG TABLET PO SCH (09:53)
[2020-02-12] MEDS: AMLODIPINE BESYLATE 10 MG TABLET PO SCH (09:53)
[2020-02-12] MEDS ORDERED: AMLODIPINE BESYLATE 10 MG TABLET PO SCH (10:00)
[2020-02-12] MEDS ORDERED: METOPROLOL SUCCINATE 50 MG TAB.SR.24H PO SCH (10:00)
--- NOTE | 2020-02-12 12:37 | PDOC PROGRESS REPORT ---
Subjective Progress Note for:: 02/12/20 Subjective:: The patient is not complaining of significant pain. He is undergoing bowel prep for surgery tomorrow. Reason For Visit: SIGMOID VOLVULOUS Physical Exam Vital Signs: Temp Pulse Resp BP Pulse Ox 98.7 F 74 18 127/67 H 98 02/12/20 00:20 02/12/20 00:20 02/12/20 00:20 02/12/20 00:20 02/12/20 00:20 Intake & Output 02/11/20 02/12/20 02/13/20 06:59 06:59 06:59 Intake Total 1000 2450 Output Total 2200 1400 Balance -1200 1050 Weight 78.6 kg 77.7 kg General appearance: PRESENT: no acute distress, cooperative, well-developed Head exam: PRESENT: atraumatic, normocephalic Eye exam: PRESENT: conjunctiva pink. ABSENT: scleral icterus Ear exam: PRESENT: normal external ear exam. ABSENT: bleeding, drainage Mouth exam: PRESENT: moist, tongue midline Neck exam: ABSENT: carotid bruit, JVD, lymphadenopathy Respiratory exam: PRESENT: clear to auscultation shazia, symmetrical, unlabored. ABSENT: rales, rhonchi, tachypnea, wheezes Cardiovascular exam: PRESENT: RRR, +S1, +S2, other - S3 GI/Abdominal exam: PRESENT: normal bowel sounds, soft. ABSENT: distended, guarding, tenderness Rectal exam: PRESENT: deferred Extremities exam: ABSENT: pedal edema Neurological exam: PRESENT: alert, awake, oriented to person, oriented to place, oriented to situation, ataxia, CN II-XII grossly intact Psychiatric exam: ABSENT: agitated, anxious Focused psych exam: ABSENT: delusional, paranoid, restlessness Skin exam: PRESENT: dry, normal color, warm. ABSENT: rash Results Laboratory Results: 02/12/20 05:28 02/12/20 05:28 02/12/20 02/12/20 05:28 05:28 WBC 7.7 RBC 4.04 L Hgb 10.5 L Hct 32.3 L MCV 80 MCH 26.0 L MCHC 32.5 RDW 16.0 H Plt Count 240 Seg Neutrophils % 54.6 Sodium 142.2 Potassium 3.8 Chloride 116 H Carbon Dioxide 22 Anion Gap 5 BUN 18 Creatinine 1.27 H Est GFR ( Amer) > 60 Glucose 110 Calcium 8.5 Impressions: KUB X-Ray 02/10/20 00:00 IMPRESSION: The bowel gas pattern is nonobstructive and nonspecific. Abdomen/Pelvis CT 02/10/20 01:59 IMPRESSION: 1. Colonic obstruction with transition point in the sigmoid colon, indeterminate for sigmoid volvulus versus an internal hernia (although likely sigmoid volvulus). Maximum colonic diameter (at the cecum) 8 cm. 2. No perforation or abscess. 3. Other chronic findings as described. Assessment and Plan - Diagnosis (1) Hypertension Qualifiers: Hypertension type: essential hypertension Qualified Code(s): I10 - Essential (primary) hypertension Is this a current diagnosis for this admission?: Yes Plan: 02/11/2020 I will resume the patient's antihypertensive medications but like parameters. We will likely need to make adjustments postoperatively. Vital signs every 4 hours. 02/12/2020 On home medication regimen his blood pressures are still slightly high. Being in the hospital likely a part of this. Continue to monitor after surgery. Vitals may change postoperatively. I will make appropriate adjustments based on blood pressures. (2) Diabetes mellitus type 2 in nonobese Is this a current diagnosis for this admission?: Yes Plan: 02/11/2020 The patient is on long-acting insulin. We will use Accu-Cheks either before meals and at bedtime or every 6 hours if the patient is n.p.o. Will utilize a sliding scale only. His intake will be diminished over the next several days so we will need to monitor his glucose closely. 02/12/2020 Currently stable. Continue current regimen. I have decided to utilize Accu- Cheks and sliding scale only at this time. (3) Acute kidney injury Is this a current diagnosis for this admission?: Yes Plan: 02/11/2020 Possibly related to the volvulus and decreased intake. The patient will be getting IV fluids per surgery. We will continue to monitor his renal function as well as intake and output. 02/12/2020 Continue IV fluid. Serum creatinine is normalizing. Recheck tomorrow. (4) Volvulus of sigmoid colon Is this a current diagnosis for this admission?: Yes Plan: 02/11/2020 Dr. Dixon plans to take patient to the operating room on Tuesday. Tomorrow will be used for bowel prep. 02/12/2020 Bowel prep today. Surgery tomorrow. Patient is medically cleared for surgery and should do well. (5) Chronic diastolic heart failure Is this a current diagnosis for this admission?: Yes Plan: 02/12/2020 The patient's echocardiogram showed a normal ejection fraction with grade 2/4 diastolic dysfunction. We will continue to monitor. No evidence of fluid overload at this time. - Plan Summary Summary: Thank you for allowing us to take care of this very pleasant 79-year-old surgical patient. We will continue to follow during his hospitalization and make adjustments in his medications based on the patient's clinical status, Accu-checks, vital signs and laboratory studies. - Time Time Spent with patient: 15-24 minutes Medications reviewed and adjusted accordingly: Yes Anticipated discharge: Other - Unknown at this time. Probably home with home health versus senior care facility.
[2020-02-12] MEDS ORDERED: POLYETHYLENE GLYCOL 3350 POWDER 17 GM/1 PACKET PO SCH (14:30)
--- NOTE | 2020-02-12 17:43 | PDOC PROGRESS REPORT ---
Subjective Progress Note for:: 02/12/20 Subjective:: Denies any abdominal pains. Continuing to have liquid stools with bowel prep Reason For Visit: SIGMOID VOLVULOUS Physical Exam Vital Signs: Temp Pulse Resp BP Pulse Ox 97.7 F 82 20 154/82 H 98 02/12/20 11:00 02/12/20 11:00 02/12/20 11:00 02/12/20 11:00 02/12/20 11:00 Intake & Output 02/11/20 02/12/20 02/13/20 06:59 06:59 06:59 Intake Total 1000 2450 Output Total 2200 1400 500 Balance -1200 1050 -500 Weight 78.6 kg 77.7 kg Exam: Abdomen is soft with less distention. Rectal tube in place still draining liquid dark greenish stools. Results Laboratory Results: 02/12/20 05:28 02/12/20 05:28 02/12/20 02/12/20 05:28 05:28 WBC 7.7 RBC 4.04 L Hgb 10.5 L Hct 32.3 L MCV 80 MCH 26.0 L MCHC 32.5 RDW 16.0 H Plt Count 240 Seg Neutrophils % 54.6 Sodium 142.2 Potassium 3.8 Chloride 116 H Carbon Dioxide 22 Anion Gap 5 BUN 18 Creatinine 1.27 H Est GFR ( Amer) > 60 Glucose 110 Calcium 8.5 Impressions: KUB X-Ray 02/10/20 00:00 IMPRESSION: The bowel gas pattern is nonobstructive and nonspecific. Abdomen/Pelvis CT 02/10/20 01:59 IMPRESSION: 1. Colonic obstruction with transition point in the sigmoid colon, indeterminate for sigmoid volvulus versus an internal hernia (although likely sigmoid volvulus). Maximum colonic diameter (at the cecum) 8 cm. 2. No perforation or abscess. 3. Other chronic findings as described. Assessment & Plan - Diagnosis (1) Acute kidney injury Is this a current diagnosis for this admission?: Yes (2) Diabetes mellitus type 2 in nonobese Is this a current diagnosis for this admission?: Yes (3) Hypertension Qualifiers: Hypertension type: essential hypertension Qualified Code(s): I10 - Essential (primary) hypertension Is this a current diagnosis for this admission?: Yes (4) Volvulus of sigmoid colon Is this a current diagnosis for this admission?: Yes - Time Critical Time spent with patient: 15-24 minutes - Inpatient Certification Medical Necessity: Need For IV Fluids, Need for Surgery - Plan Summary Plan Summary: 79-year-old male admitted for volvulus of the sigmoid colon on 02/10/2020. A rectal tube was placed by Dr. Mathew and appears to be functioning well. We will continue him on bowel prep with GoLYTELY and scheduled for colon resection tomorrow with Dr. Witt. Hopefully a primary anastomosis can be done as requested by patient and his son. Patient is cleared by medicine for surgery tomorrow.
[2020-02-12] MEDS ORDERED: PEG 3350/NA SULF,BICARB,CL/KCL 4000 ML PO ONE (20:00)
[2020-02-12] MEDS: MIRTAZAPINE 15 MG TABLET PO SCH (21:48)
[2020-02-12] MEDS: TRAZODONE HCL 50 MG TABLET PO SCH (21:48)
[2020-02-12] MEDS: DORZOLAMIDE HCL 2% OPH SOLN 10 ML OU SCH (21:48)
[2020-02-12] MEDS: ATORVASTATIN CALCIUM 40 MG TABLET PO SCH (21:48)
[2020-02-12] MEDS: LATANOPROST 0.005% OPH SOLN 2.5 ML OU SCH (22:04)
[2020-02-13] MEDS ORDERED: DEXAMETHASONE SOD PHOSPHATE INJ 4 MG/1 ML VIAL ONE (05:00)
[2020-02-13] MEDS ORDERED: ONDANSETRON HCL INJ/PF 4 MG/2 ML SDV ONE (05:00)
[2020-02-13] MEDS ORDERED: VANCOMYCIN HCL 750 MG in DEXTROSE 5%-WATER 250 ML IV PRN (05:00)
[2020-02-13] MEDS ORDERED: GLYCOPYRROLATE 1 MG/5 ML VIAL ONE (05:00)
[2020-02-13] MEDS ORDERED: ROCURONIUM BROMIDE INJ 50 MG/5 ML VIAL IV ONE (05:00)
[2020-02-13] MEDS ORDERED: NEOSTIGMINE METHYLSULFATE 10 MG/10 ML VIAL ONE (05:00)
[2020-02-13] MEDS ORDERED: SUCCINYLCHOLINE CHLORIDE INJ 200 MG/10 ML VIAL ONE (05:00)
[2020-02-13] MEDS ORDERED: VANCOMYCIN HCL INJ 1000 MG VIAL IV ONE (05:00)
[2020-02-13] MEDS: NORMAL SALINE 1000 ML 1,000 ML IV PRN ×2 (05:28→16:41)
[2020-02-13 05:50] LABS: ABSOLUTE EOSINOPHILS # (AUTO) 0.6 10^3/uL (0.0-0.6); ABSOLUTE LYMPHOCYTES (AUTO) 1.8 10^3/uL (0.5-4.7); ABSOLUTE MONOCYTES (AUTO) 0.9 10^3/uL (0.1-1.4); ABSOLUTE NEUT (AUTO) 4.3 10^3/uL (1.7-8.2); BASOPHILS % (AUTO) 0.5 % (0-2); EOSINOPHILS % (AUTO) 7.6 % (0-6); HEMATOCRIT 30.9 % (37.9-51.0); HEMOGLOBIN 10.1 g/dL (13.5-17.0); LYMPHOCYTES % (AUTO) 23.5 % (13-45); MEAN CORPUSCULAR HEMOGLOBIN 26.2 pg (27.0-33.4); MEAN CORPUSCULAR HGB CONC 32.8 g/dL (32.0-36.0); MEAN CORPUSCULAR VOLUME 80 fl (80-97); MONOCYTES % (AUTO) 11.8 % (3-13); PLATELET COUNT 254 10^3/uL (150-450); RED BLOOD COUNT 3.86 10^6/uL (4.35-5.55); RED CELL DISTRIBUTION WIDTH 15.9 % (11.5-14.0); SEGMENTED NEUTROPHILS % (AUTO) 56.6 % (42-78); TOTAL CELLS COUNTED % (AUTO) 100 %; WHITE BLOOD COUNT 7.6 10^3/uL (4.0-10.5)
[2020-02-13 06:20] LABS: BLOOD UREA NITROGEN 14 mg/dL (7-20); CALCIUM 8.3 mg/dL (8.4-10.2); CARBON DIOXIDE 23 mmol/L (22-30); CHLORIDE 114 mmol/L (98-107); GLUCOSE 111 mg/dL (75-110); POTASSIUM 3.8 mmol/L (3.6-5.0)
[2020-02-13 06:22] LABS: ANION GAP 5 (5-19)
[2020-02-13] MEDS: INSULIN LISPRO 100 UNIT/ML 3 ML VIAL SUBCUT SCH ×4 (08:26→22:40)
[2020-02-13] MEDS: PANTOPRAZOLE SODIUM 40 MG TABLET.DR PO SCH (08:27)
--- NOTE | 2020-02-13 10:45 | PDOC PROGRESS REPORT ---
Subjective Progress Note for:: 02/13/20 Subjective:: The patient is n.p.o. for surgery later today. He is not having any pain. He feels comfortable. Reason For Visit: SIGMOID VOLVULOUS Physical Exam Vital Signs: Temp Pulse Resp BP Pulse Ox 97.6 F 81 16 142/70 H 97 02/13/20 06:50 02/13/20 06:50 02/13/20 06:50 02/13/20 06:50 02/13/20 06:50 Intake & Output 02/12/20 02/13/20 02/14/20 06:59 06:59 06:59 Intake Total 2450 2490 Output Total 1400 1225 Balance 1050 1265 Weight 77.7 kg 77.1 kg General appearance: PRESENT: no acute distress, well-developed, well-nourished Head exam: PRESENT: atraumatic, normocephalic Ear exam: PRESENT: normal external ear exam. ABSENT: bleeding, drainage Respiratory exam: PRESENT: clear to auscultation shazia, symmetrical, unlabored. ABSENT: prolonged expiratory phas, rales, rhonchi, tachypnea, wheezes Cardiovascular exam: PRESENT: RRR, +S1, +S2, other - Occasional irregular beats. ABSENT: diastolic murmur, systolic murmur GI/Abdominal exam: PRESENT: normal bowel sounds, soft. ABSENT: distended, guarding, tenderness Rectal exam: PRESENT: deferred Extremities exam: ABSENT: pedal edema Musculoskeletal exam: PRESENT: normal inspection Neurological exam: PRESENT: alert, awake, oriented to person, oriented to place, oriented to time, oriented to situation, CN II-XII grossly intact Psychiatric exam: PRESENT: flat affect. ABSENT: agitated, anxious Focused psych exam: ABSENT: delusional, paranoid, restlessness Results Laboratory Results: 02/13/20 05:28 02/13/20 05:28 02/13/20 02/13/20 05:28 05:28 WBC 7.6 RBC 3.86 L Hgb 10.1 L Hct 30.9 L MCV 80 MCH 26.2 L MCHC 32.8 RDW 15.9 H Plt Count 254 Seg Neutrophils % 56.6 Sodium 141.1 Potassium 3.8 Chloride 114 H Carbon Dioxide 23 Anion Gap 5 BUN 14 Creatinine 1.34 H Est GFR ( Amer) > 60 Glucose 111 H Calcium 8.3 L Magnesium 1.8 Impressions: KUB X-Ray 02/10/20 00:00 IMPRESSION: The bowel gas pattern is nonobstructive and nonspecific. Abdomen/Pelvis CT 02/10/20 01:59 IMPRESSION: 1. Colonic obstruction with transition point in the sigmoid colon, indeterminate for sigmoid volvulus versus an internal hernia (although likely sigmoid volvulus). Maximum colonic diameter (at the cecum) 8 cm. 2. No perforation or abscess. 3. Other chronic findings as described. Assessment and Plan - Diagnosis (1) Hypertension Qualifiers: Hypertension type: essential hypertension Qualified Code(s): I10 - Essential (primary) hypertension Is this a current diagnosis for this admission?: Yes Plan: 02/11/2020 I will resume the patient's antihypertensive medications but like parameters. We will likely need to make adjustments postoperatively. Vital signs every 4 hours. 02/12/2020 On home medication regimen his blood pressures are still slightly high. Being in the hospital likely a part of this. Continue to monitor after surgery. Vitals may change postoperatively. I will make appropriate adjustments based on blood pressures. 02/13/2020 Reasonable blood pressure control. Stable for surgery. (2) Diabetes mellitus type 2 in nonobese Is this a current diagnosis for this admission?: Yes Plan: 02/11/2020 The patient is on long-acting insulin. We will use Accu-Cheks either before meals and at bedtime or every 6 hours if the patient is n.p.o. Will utilize a sliding scale only. His intake will be diminished over the next several days so we will need to monitor his glucose closely. 02/12/2020 Currently stable. Continue current regimen. I have decided to utilize Accu- Cheks and sliding scale only at this time. 02/13/2020 Good glucose control. Will need to monitor closely after surgery based on his oral intake (3) Acute kidney injury Is this a current diagnosis for this admission?: Yes Plan: 02/11/2020 Possibly related to the volvulus and decreased intake. The patient will be getting IV fluids per surgery. We will continue to monitor his renal function as well as intake and output. 02/12/2020 Continue IV fluid. Serum creatinine is normalizing. Recheck tomorrow. 02/13/2020 Serum creatinine slightly higher. Will need to adjust IV fluids most likely postoperatively (4) Volvulus of sigmoid colon Is this a current diagnosis for this admission?: Yes Plan: 02/11/2020 Dr. Dixon plans to take patient to the operating room on Tuesday. Tomorrow will be used for bowel prep. 02/12/2020 Bowel prep today. Surgery tomorrow. Patient is medically cleared for surgery and should do well. 02/13/2020 For surgery later today (5) Chronic diastolic heart failure Is this a current diagnosis for this admission?: Yes Plan: 02/12/2020 The patient's echocardiogram showed a normal ejection fraction with grade 2/4 diastolic dysfunction. We will continue to monitor. No evidence of fluid overload at this time. 02/13/2020 Clinically stable. Not a contraindication to surgery. - Plan Summary Summary: Thank you for allowing us to take care of this very pleasant 79-year-old surgical patient. We will continue to follow during his hospitalization and make adjustments in his medications based on the patient's clinical status, Accu-checks, vital signs and laboratory studies. - Time Time Spent with patient: Less than 15 minutes Medications reviewed and adjusted accordingly: Yes
[2020-02-13] MEDS: METOPROLOL SUCCINATE 50 MG TAB.SR.24H PO SCH (11:00)
[2020-02-13] MEDS: ASPIRIN 81 MG TABLET, ENT COATED PO SCH (11:01)
[2020-02-13] MEDS: DORZOLAMIDE HCL 2% OPH SOLN 10 ML OU SCH ×3 (11:01→22:40)
[2020-02-13] MEDS: FERROUS SULFATE 325 MG TABLET PO SCH (11:01)
[2020-02-13] MEDS: AMLODIPINE BESYLATE 10 MG TABLET PO SCH (11:02)
[2020-02-13] MEDS ORDERED: MIDAZOLAM 2 MG/2 ML INJ ONE (11:46)
[2020-02-13] MEDS ORDERED: FENTANYL CITRATE INJ/PF 250 MCG/5 ML AMPULE ONE (11:46)
[2020-02-13] MEDS ORDERED: PROPOFOL INJ 200 MG/20 ML VIAL IV ONE (11:47)
[2020-02-13] MEDS ORDERED: EPHEDRINE SULFATE INJ 50 MG/1 ML AMPULE ONE (11:47)
[2020-02-13] MEDS ORDERED: BUPIVACAINE HCL 0.25% /EPINEPHRINE INJ/PF 30 ML SDV ONE (11:51)
[2020-02-13] MEDS ORDERED: BUPIVACAINE INJ/PF LIPOSOME/PF 266 MG/20 ML SDV ONE (11:51)
[2020-02-13] MEDS ORDERED: METRONIDAZOLE 500 MG/NS RTU 500 MG/100 ML RTUPB IV ONE (12:11)
[2020-02-13] MEDS ORDERED: CEFAZOLIN INJ 1 GM VIAL ONE (12:12)
[2020-02-13] MEDS ORDERED: OXYCODONE-ACETAMINOPHEN 5-325 MG TABLET PO PRN ×2 (12:54)
[2020-02-13] MEDS ORDERED: FENTANYL CITRATE INJ/PF 100 MCG/2 ML AMPUL IV PRN ×6 (12:54→18:03)
[2020-02-13] MEDS ORDERED: PROMETHAZINE HCL INJ 25 MG/1 ML VIAL IV PRN ×4 (12:54→18:03)
[2020-02-13] MEDS ORDERED: MEPERIDINE HCL/PF INJ 25 MG/1 ML DISP.SYRIN IV PRN (12:54)
[2020-02-13] MEDS ORDERED: DIPHENHYDRAMINE HCL 50 MG/ML VIAL IV PRN ×2 (12:54→18:03)
[2020-02-13] MEDS ORDERED: FENTANYL CITRATE INJ/PF 100 MCG/2 ML AMPUL ONE (15:04)
[2020-02-13] MEDS: MORPHINE SULFATE 10 MG/ML INJ IV ONE ×3 (15:05→16:27)
[2020-02-13] MEDS ORDERED: MORPHINE SULFATE 10 MG/ML INJ ONE (15:29)
[2020-02-13] MEDS ORDERED: ONDANSETRON HCL INJ/PF 4 MG/2 ML SDV IV PRN (18:03)
[2020-02-13] MEDS: MORPHINE SULFATE 10 MG/ML INJ IV PRN (18:33)
--- NOTE | 2020-02-13 19:22 | Operative Report ---
Nonrecallable Operative Report DATE OF SURGERY: 02/13/20 PREOPERATIVE DIAGNOSIS: sigmoid volvulus POSTOPERATIVE DIAGNOSIS: sigmoid volvulus OPERATION: Sigmoidectomy with temporary protective ileostomy SURGEON: DEWAYNE PRIETO PAINT SPRAY TENDER: MOHIT BROWN ANESTHESIA: GA TISSUE REMOVED OR ALTERED: Sigmoid colon COMPLICATIONS: None ESTIMATED BLOOD LOSS: 100 cc INTRAOPERATIVE FINDINGS: Redundant sigmoid colon PROCEDURE: Patient was brought to the operating awake alert stable condition placed in the operative table supine position induced under general anesthesia and intubated. The abdomen was prepped draped usual sterile manner for the procedure. After appropriate timeout site verification the procedure commenced. A midline incision was used from just above the pubic symphysis to just below the umbilicus dissection was carried down through subcutaneous tissue with Bovie cautery midline fascia was entered with Bovie cautery. We placed a self-retaining Aubrey retractor and were able to deliver the redundant sigmoid colon which was quite redundant approximately 30 cm long and twisted upon itself we have previously remove the rectal tube that was placed on the nursing floor. I mobilized the rectum with Bovie cautery incising the peritoneum on each side of it at the pelvic brim being careful not to injure the right or left ureter. We came across the distal rectum with 1 firing of the TODD stapler with a blue load. I took down the mesentery with the LigaSure device to the fixed portion of the descending colon. We came across the descending colon and up with 1 firing of the Endo TODD stapler with a blue load. We then mobilized a bit of the descending colon to allow to come down to the rectum and then we picked a point proximal to the stapled end of the descending colon where I made a small colotomy. In addition this I opened the end of the rectum placed a pursestring suture of 2-0 nylon in the end of it and placed a 29 mm EEA anvil in the end of the rectum and tied the pursestring suture down. Then through the colotomy in the descending colon I placed a 29 mm stapler opened it clinic connected to the anvil and the rectum close it fired creating a coloproctostomy. We then closed the staple hole in 2 layers transversely with 3-0 Vicryl in the mucosal layer and interrupted 2-0 silk in the serosal layer. Because there was a significant amount of stool in the descending colon I elected to perform a protective terminal ileostomy. We picked a point on the right anterior abdominal wall re-created a stomal defect with the Bovie cautery and using a Catarina clamp I pulled a loop of terminal ileum approximately 5 cm proximal to the ileocecal valve up through that skin defect and fascial defect. We then closed the midline fascia with interrupted #2 Polysorb sutures and closed the skin with standard skin clips I matured the ileostomy over a red Hightower bridge with interrupted 3-0 Vicryl sutures we opened up the loop ileostomy and matured to the skin with interrupted 3-0 Vicryl sutures. A sterile colostomy appliance was applied. At the termination of the procedure sponge and needle counts were off by 1 needle and therefore after multiple attempts at recovery the needle we were unable to find it and therefore intraoperative fluoroscopy was then done to examine the abdominal cavity and there was no evidence of a retained needle. In addition that in the recovery room a KUB was obtained which did not show any juan luis dence of retained needle. The patient was awakened in the operating transferred recovery in stable condition estimated blood loss was 100 cc spong counts were were correct.
[2020-02-13] MEDS: ATORVASTATIN CALCIUM 40 MG TABLET PO SCH (22:40)
[2020-02-13] MEDS: TRAZODONE HCL 50 MG TABLET PO SCH (22:40)
[2020-02-13] MEDS: LATANOPROST 0.005% OPH SOLN 2.5 ML OU SCH (22:41)
[2020-02-14 05:51] LABS: ABSOLUTE LYMPHOCYTES (AUTO) 0.9 10^3/uL (0.5-4.7); ABSOLUTE NEUT (AUTO) 11.6 10^3/uL (1.7-8.2); BASOPHILS % (AUTO) 0.2 % (0-2); HEMATOCRIT 28.8 % (37.9-51.0); HEMOGLOBIN 9.3 g/dL (13.5-17.0); MEAN CORPUSCULAR HGB CONC 32.4 g/dL (32.0-36.0); MEAN CORPUSCULAR VOLUME 80 fl (80-97); MONOCYTES % (AUTO) 7.6 % (3-13); PLATELET COUNT 253 10^3/uL (150-450); RED CELL DISTRIBUTION WIDTH 15.9 % (11.5-14.0); SEGMENTED NEUTROPHILS % (AUTO) 85.2 % (42-78); TOTAL CELLS COUNTED % (AUTO) 100 %; WHITE BLOOD COUNT 13.6 10^3/uL (4.0-10.5)
[2020-02-14] MEDS: MORPHINE SULFATE 10 MG/ML INJ IV PRN (06:02)
[2020-02-14 06:06] LABS: ANION GAP 8 (5-19); BLOOD UREA NITROGEN 19 mg/dL (7-20); CALCIUM 7.9 mg/dL (8.4-10.2); CARBON DIOXIDE 19 mmol/L (22-30); CHLORIDE 113 mmol/L (98-107); GLUCOSE 162 mg/dL (75-110); POTASSIUM 4.6 mmol/L (3.6-5.0)
[2020-02-14] MEDS: NORMAL SALINE 1000 ML 1,000 ML IV PRN ×4 (07:00→22:34)
[2020-02-14] MEDS: PANTOPRAZOLE SODIUM 40 MG TABLET.DR PO SCH (08:25)
[2020-02-14] MEDS: INSULIN LISPRO 100 UNIT/ML 3 ML VIAL SUBCUT SCH ×4 (08:25→22:30)
[2020-02-14] MEDS ORDERED: MAG HYDROX/AL HYDROX/SIMETH SUSP 30 ML UDCUP PO PRN (09:41)
[2020-02-14] MEDS ORDERED: NORMAL SALINE 1000 ML 1,000 ML IV PRN (09:47)
[2020-02-14] MEDS: FERROUS SULFATE 325 MG TABLET PO SCH (09:48)
[2020-02-14] MEDS: ASPIRIN 81 MG TABLET, ENT COATED PO SCH ×2 (09:51→11:38)
[2020-02-14] MEDS: AMLODIPINE BESYLATE 10 MG TABLET PO SCH (09:51)
[2020-02-14] MEDS: DORZOLAMIDE HCL 2% OPH SOLN 10 ML OU SCH ×2 (09:52→22:30)
[2020-02-14] MEDS: METOPROLOL SUCCINATE 50 MG TAB.SR.24H PO SCH (09:52)
--- NOTE | 2020-02-14 09:59 | PDOC PROGRESS REPORT ---
Subjective Progress Note for:: 02/14/20 Subjective:: The patient is resting comfortably. He only complains of indigestion. He reports no significant pain. Reason For Visit: SIGMOID VOLVULOUS Physical Exam Vital Signs: Temp Pulse Resp BP Pulse Ox 98.7 F 49 L 17 108/55 L 98 02/14/20 07:17 02/14/20 07:17 02/14/20 07:17 02/14/20 07:17 02/14/20 07:17 Intake & Output 02/13/20 02/14/20 02/15/20 06:59 06:59 06:59 Intake Total 2490 4560 Output Total 1225 3380 Balance 1265 1180 Weight 77.1 kg 80 kg General appearance: PRESENT: cooperative, mild distress, well-developed Head exam: PRESENT: atraumatic, normocephalic Ear exam: PRESENT: normal external ear exam. ABSENT: bleeding, drainage Respiratory exam: PRESENT: clear to auscultation shazia, symmetrical, unlabored. ABSENT: prolonged expiratory phas, rales, rhonchi, tachypnea, wheezes Cardiovascular exam: PRESENT: RRR, +S1, +S2, other - Occasional irregular beats. ABSENT: diastolic murmur, systolic murmur GI/Abdominal exam: PRESENT: normal bowel sounds, soft, tenderness, other - Bloody discharge in the ostomy bag. ABSENT: distended, guarding Rectal exam: PRESENT: deferred, other - Ostomy with bloody discharge Extremities exam: ABSENT: pedal edema Musculoskeletal exam: PRESENT: normal inspection Neurological exam: PRESENT: alert, awake, oriented to person, oriented to place, oriented to time, oriented to situation, CN II-XII grossly intact Psychiatric exam: PRESENT: appropriate affect. ABSENT: agitated, anxious Focused psych exam: ABSENT: delusional, paranoid, restlessness Results Laboratory Results: 02/14/20 05:00 02/14/20 05:00 02/14/20 02/14/20 05:00 05:00 WBC 13.6 H RBC 3.60 L Hgb 9.3 L Hct 28.8 L MCV 80 MCH 26.0 L MCHC 32.4 RDW 15.9 H Plt Count 253 Seg Neutrophils % 85.2 H Sodium 140.3 Potassium 4.6 Chloride 113 H Carbon Dioxide 19 L Anion Gap 8 BUN 19 Creatinine 1.98 H Est GFR ( Amer) 40 L Glucose 162 H Calcium 7.9 L Impressions: KUB X-Ray 02/10/20 00:00 IMPRESSION: The bowel gas pattern is nonobstructive and nonspecific. Abdomen/Pelvis CT 02/10/20 01:59 IMPRESSION: 1. Colonic obstruction with transition point in the sigmoid colon, indeterminate for sigmoid volvulus versus an internal hernia (although likely sigmoid volvulus). Maximum colonic diameter (at the cecum) 8 cm. 2. No perforation or abscess. 3. Other chronic findings as described. Assessment and Plan - Diagnosis (1) Hypertension Qualifiers: Hypertension type: essential hypertension Qualified Code(s): I10 - Essential (primary) hypertension Is this a current diagnosis for this admission?: Yes Plan: 02/11/2020 I will resume the patient's antihypertensive medications but like parameters. We will likely need to make adjustments postoperatively. Vital signs every 4 hours. 02/12/2020 On home medication regimen his blood pressures are still slightly high. Being in the hospital likely a part of this. Continue to monitor after surgery. Vitals may change postoperatively. I will make appropriate adjustments based on blood pressures. 02/13/2020 Reasonable blood pressure control. Stable for surgery. 02/14/2020 Blood pressure is variable. It will fluctuate based on his pain several other factors. Continue to monitor. (2) Diabetes mellitus type 2 in nonobese Is this a current diagnosis for this admission?: Yes Plan: 02/11/2020 The patient is on long-acting insulin. We will use Accu-Cheks either before meals and at bedtime or every 6 hours if the patient is n.p.o. Will utilize a sliding scale only. His intake will be diminished over the next several days so we will need to monitor his glucose closely. 02/12/2020 Currently stable. Continue current regimen. I have decided to utilize Accu- Cheks and sliding scale only at this time. 02/13/2020 Good glucose control. Will need to monitor closely after surgery based on his oral intake 02/14/2020 Sugars will vary based on the patient's intake. He is not clear liquids. We may need to adjust the insulin. Continue sliding scale. (3) Acute kidney injury Is this a current diagnosis for this admission?: Yes Plan: 02/11/2020 Possibly related to the volvulus and decreased intake. The patient will be getting IV fluids per surgery. We will continue to monitor his renal function as well as intake and output. 02/12/2020 Continue IV fluid. Serum creatinine is normalizing. Recheck tomorrow. 02/13/2020 Serum creatinine slightly higher. Will need to adjust IV fluids most likely postoperatively 02/14/2020 He did increase the IV fluids somewhat today as his serum creatinine was higher. Recheck laboratory studies in the morning and assess his oral intake improves we can likely decrease the rate of IV fluid. (4) Volvulus of sigmoid colon Is this a current diagnosis for this admission?: Yes Plan: 02/11/2020 Dr. Dixon plans to take patient to the operating room on Tuesday. Tomorrow will be used for bowel prep. 02/12/2020 Bowel prep today. Surgery tomorrow. Patient is medically cleared for surgery and should do well. 02/13/2020 For surgery later today 02/14/2020 Successful surgery. See operative notes. (5) Chronic diastolic heart failure Is this a current diagnosis for this admission?: Yes Plan: 02/12/2020 The patient's echocardiogram showed a normal ejection fraction with grade 2/4 diastolic dysfunction. We will continue to monitor. No evidence of fluid overload at this time. 02/13/2020 Clinically stable. Not a contraindication to surgery. 02/14/2020 No need to monitor in light of increased fluid rate. (6) Leukocytosis Qualifiers: Leukocytosis type: unspecified Qualified Code(s): D72.829 - Elevated white blood cell count, unspecified Is this a current diagnosis for this admission?: Yes Plan: 02/14/2020 Likely a stress reaction to the surgery. Continue to monitor. - Plan Summary Summary: Thank you for allowing us to take care of this very pleasant 79-year-old surgical patient. We will continue to follow during his hospitalization and make adjustments in his medications based on the patient's clinical status, Accu-checks, vital signs and laboratory studies. - Time Time Spent with patient: Less than 15 minutes Medications reviewed and adjusted accordingly: Yes
--- NOTE | 2020-02-14 16:48 | PDOC PROGRESS REPORT ---
Subjective Progress Note for:: 02/14/20 Subjective:: Patient feels comfortable. Denies any pains. Just requesting Maalox for reflux. Reason For Visit: SIGMOID VOLVULOUS Physical Exam Vital Signs: Temp Pulse Resp BP Pulse Ox 98.2 F 62 18 135/48 H 98 02/14/20 16:06 02/14/20 16:06 02/14/20 16:06 02/14/20 16:06 02/14/20 16:06 Intake & Output 02/13/20 02/14/20 02/15/20 06:59 06:59 06:59 Intake Total 2490 4560 3360 Output Total 1225 3380 50 Balance 1265 1180 3310 Weight 77.1 kg 80 kg Exam: Ileostomy appears swollen and reddish. Has small amount of blood-tinged fluid in the bag. Abdomen is soft with minimal distention. Incision dressing is dry. Results Laboratory Results: 02/14/20 05:00 02/14/20 05:00 02/14/20 02/14/20 05:00 05:00 WBC 13.6 H RBC 3.60 L Hgb 9.3 L Hct 28.8 L MCV 80 MCH 26.0 L MCHC 32.4 RDW 15.9 H Plt Count 253 Seg Neutrophils % 85.2 H Sodium 140.3 Potassium 4.6 Chloride 113 H Carbon Dioxide 19 L Anion Gap 8 BUN 19 Creatinine 1.98 H Est GFR ( Amer) 40 L Glucose 162 H Calcium 7.9 L Impressions: KUB X-Ray 02/10/20 00:00 IMPRESSION: The bowel gas pattern is nonobstructive and nonspecific. Abdomen/Pelvis CT 02/10/20 01:59 IMPRESSION: 1. Colonic obstruction with transition point in the sigmoid colon, indeterminate for sigmoid volvulus versus an internal hernia (although likely sigmoid volvulus). Maximum colonic diameter (at the cecum) 8 cm. 2. No perforation or abscess. 3. Other chronic findings as described. Assessment & Plan - Diagnosis (1) Acute kidney injury Is this a current diagnosis for this admission?: Yes (2) Diabetes mellitus type 2 in nonobese Is this a current diagnosis for this admission?: Yes (3) Hypertension Qualifiers: Hypertension type: essential hypertension Qualified Code(s): I10 - Essential (primary) hypertension Is this a current diagnosis for this admission?: Yes (4) Volvulus of sigmoid colon Is this a current diagnosis for this admission?: Yes - Time Critical Time spent with patient: 15-24 minutes - Inpatient Certification Medical Necessity: Need For IV Fluids, Need for IV Antibiotics - Plan Summary Plan Summary: Patient is postop day #1 post sigmoid colon resection with primary anastomosis and diverting ileostomy. claims that there is still a lot of stool in the large bowel and therefore an ileostomy was done as a diversion. Ileostomy still swollen and appears to be not functioning well yet. We will go slow with liquid diet Appreciate hospitalist consult and follow-up
[2020-02-14] MEDS: ATORVASTATIN CALCIUM 40 MG TABLET PO SCH (22:30)
[2020-02-14] MEDS: TRAZODONE HCL 50 MG TABLET PO SCH (22:30)
[2020-02-14] MEDS: LATANOPROST 0.005% OPH SOLN 2.5 ML OU SCH (22:30)
[2020-02-15] MEDS: MORPHINE SULFATE 10 MG/ML INJ IV PRN (00:24)
[2020-02-15 06:09] LABS: ABSOLUTE LYMPHOCYTES (AUTO) 0.7 10^3/uL (0.5-4.7); ABSOLUTE MONOCYTES (AUTO) 0.9 10^3/uL (0.1-1.4); BASOPHILS % (AUTO) 0.1 % (0-2); EOSINOPHILS % (AUTO) 0.1 % (0-6); HEMOGLOBIN 8.6 g/dL (13.5-17.0); LYMPHOCYTES % (AUTO) 5.1 % (13-45); MEAN CORPUSCULAR HEMOGLOBIN 25.7 pg (27.0-33.4); MEAN CORPUSCULAR HGB CONC 31.9 g/dL (32.0-36.0); MEAN CORPUSCULAR VOLUME 81 fl (80-97); MONOCYTES % (AUTO) 6.5 % (3-13); PLATELET COUNT 257 10^3/uL (150-450); RED BLOOD COUNT 3.35 10^6/uL (4.35-5.55); RED CELL DISTRIBUTION WIDTH 16.3 % (11.5-14.0); SEGMENTED NEUTROPHILS % (AUTO) 88.2 % (42-78); TOTAL CELLS COUNTED % (AUTO) 100 %; WHITE BLOOD COUNT 13.6 10^3/uL (4.0-10.5)
[2020-02-15 06:29] LABS: ANION GAP 9 (5-19); BLOOD UREA NITROGEN 32 mg/dL (7-20); CALCIUM 8.4 mg/dL (8.4-10.2); CARBON DIOXIDE 20 mmol/L (22-30); CHLORIDE 111 mmol/L (98-107); GLUCOSE 204 mg/dL (75-110); POTASSIUM 4.5 mmol/L (3.6-5.0)
[2020-02-15] MEDS: INSULIN LISPRO 100 UNIT/ML 3 ML VIAL SUBCUT SCH ×4 (07:53→23:36)
[2020-02-15] MEDS: PANTOPRAZOLE SODIUM 40 MG TABLET.DR PO SCH (07:54)
[2020-02-15] MEDS: NORMAL SALINE 1000 ML 1,000 ML IV PRN ×2 (07:55→19:35)
[2020-02-15] MEDS ORDERED: PHARMACY COMMUNICATION ORDER MC NR (08:00)
[2020-02-15] MEDS: AMLODIPINE BESYLATE 10 MG TABLET PO SCH ×2 (10:26→10:47)
[2020-02-15] MEDS: ASPIRIN 81 MG TABLET, ENT COATED PO SCH ×2 (10:26→10:46)
[2020-02-15] MEDS: FERROUS SULFATE 325 MG TABLET PO SCH ×2 (10:26→10:47)
[2020-02-15] MEDS: METOPROLOL SUCCINATE 50 MG TAB.SR.24H PO SCH ×2 (10:26→10:47)
[2020-02-15] MEDS: DORZOLAMIDE HCL 2% OPH SOLN 10 ML OU SCH ×2 (10:35→21:52)
--- NOTE | 2020-02-15 11:00 | RADIOLOGY REPORT (SQ) ---
EXAM DESCRIPTION: KUB/ABDOMEN (SINGLE VIEW) IMAGES COMPLETED DATE/TIME: 02/15/2020 10:10 am REASON FOR STUDY: Check Placement of NG Tube COMPARISON: None. NUMBER OF VIEWS: One view. TECHNIQUE: An AP semi upright view of the abdomen was obtained. LIMITATIONS: None. FINDINGS: BOWEL GAS PATTERN: Diffuse gaseous dilatation of the bowel. CALCIFICATIONS: No suspicious calcifications. SOFT TISSUES: No abnormality. HARDWARE: The tip of the enteric tube projects within the gastric lumen. BONES: Degenerative spondylosis of the lumbar spine. OTHER: Free intraperitoneal gas. IMPRESSION: 1. The tip of the enteric tube projects within the gastric lumen. 2. Postoperative free intraperitoneal gas. 3. Diffuse gaseous dilatation of the bowel - correlate for postoperative ileus. TECHNICAL DOCUMENTATION: JOB ID: [id number] 2010 [employer]- All Rights Reserved Reading location - IP/workstation name: [email or web address]
[2020-02-15] MEDS ORDERED: FUROSEMIDE INJ/PF 40 MG/4 ML SDV IV ONE (11:30)
--- NOTE | 2020-02-15 12:39 | RADIOLOGY REPORT (SQ) ---
EXAM DESCRIPTION: U/S RETROPERITON (RENAL/AORTA) IMAGES COMPLETED DATE/TIME: 02/15/2020 12:15 pm REASON FOR STUDY: ARIEL/Anuria COMPARISON: None. TECHNIQUE: Dynamic and static grayscale images acquired of the kidneys and bladder and recorded on P ACS. Additional selected color Doppler and spectral images recorded. LIMITATIONS: None. FINDINGS: RIGHT KIDNEY: Normal size, 10.7 cm. Increased echogenicity. No solid or suspicious masses . No hydronephrosis. No calcifications. LEFT KIDNEY: Normal size, 9.8 cm. Increased echogenicity. No solid or suspicious masses. 8.[address] No hydronephrosis. No calcifications. BLADDER: Not seen. Apparently empty. OTHER FINDINGS: No other significant finding. IMPRESSION: There is increased echogenicity of the kidneys, suggesting medical renal disease. There is a large cyst on the left kidney. TECHNICAL DOCUMENTATION: JOB ID: [id number] 2010 [employer]- All Rights Reserved Reading location - IP/workstation name: [email or web address]
[2020-02-15] MEDS ORDERED: NORMAL SALINE 1000 ML 1,000 ML IV PRN (12:46)
[2020-02-15] MEDS ORDERED: HEPARIN SOD (PORCINE) 1,000 UNIT/ML 10 ML VIAL IV PRN (12:46)
[2020-02-15] MEDS ORDERED: NORMAL SALINE 500 ML IV ONE (13:00)
[2020-02-15] MEDS: METOPROLOL TARTRATE PF/INJ 5 MG/5 ML SDV IV SCH ×3 (14:42→23:40)
--- NOTE | 2020-02-15 14:51 | PDOC CONSULTATION ---
Consultation Consult Date: 02/15/20 Provider Consulted: JADON AGUIRRE Consult reason:: ARIEL History of Present Illness Admission Date/PCP: 02/10/20 05:09 History of Present Illness: CHRISTY CANO is a 79 year old male with history of hypertension, diabetes mellitus type 2 and hyperlipidemia who was admitted on February 10, 2020 presenting with abdominal bloating, abdominal pain and decreased appetite. There was a note of diarrhea but no blood in the stool. On admission a CT scan of the abdo men and pelvis with contrast was done showing colonic obstruction in the sigmoid colon and was diagnosed with sigmoid volvulus. Patient was evaluated by surgery and subsequently underwent sigmoidectomy with primary ileostomy by Dr. Witt. Review of operative record reveals adequate blood pressure. Yesterday he had a transient relative hypotension with blood pressure 108/55 but has been within acceptable limits after that. Upon admission the patient was noted to have mild elevation of BUN and creatinine initially with a BUN of 24, creatinine of 1.62 with EGFR 54. Back in June 22, 2019 he had a BUN of 28, creatinine 1.88 with EGFR 50. Kidney function improved on February 11 to BUN of 18, creatinine of 1.27 with acceptable EGFR after IV fluid hydration. However yesterday, post surgery his BUN was 19 and creatinine went up to 1.98 with EGFR of 40. Patient has had good urine output since admission until surgery producing anywhere between 1200 to 3 L of urine output daily. However yesterday the patient's urine output drastically dropped to just 130 mL for the past 24 hours. His cumulative fluid balance since admission does is approximately +7.5 L. Today he has a BUN of 32, creatinine of 3.65 with EGFR of 20 and has not been making urine output thus far. I then ordered a stat kidney ultrasound this morning which was which was pretty unremarkable without any note of hydronephrosis. The right kidney is a 10.7 cm and left kidney of 9.8 cm with left kidney cyst measuring 8.6 cm. There was increased echogenicity without any solid or suspicious masses noted nor calcifications. Patient has not received any nephrotoxic medications aside from the IV contrast from initial CT scan on admission. I gave the patient a trial of Lasix 40 mg IV x1 dose without any good response. Due to continued anuria and the rapid decline in kidney function for the past 24 hours I recommended acute renal replacement therapy for the patient today. I discussed with the patient what dialysis is and how it is being done including its benefits and risks to include bleeding, infection, arrhythmia and cardiac arrest during dialysis treatment. He understood and consented to proceed. I then asked Dr. Dixon to put the temporary dialysis catheter which he did. 2:28 PM. I am seeing the patient during dialysis this afternoon. We are using the newly placed right femoral dialysis catheter. So far the patient is tolerating dialysis. Patient denies any history of kidney disease in the past. He denies any problems with urination either. Currently does not have any complaints. He denied any abdominal pain or discomfort and he said he feels good. He has a lot of NG tube drainage this morning about 1600 mL after insertion of the NG tube. Patient is currently hemodynamically stable and is currently being monitored closely during dialysis. Past Medical History Cardiac Medical History: Reports: Hyperlipidemia, Hypertension-primary Neurological Medical History: Reports: Other - Stroke involving the right eye Endocrine Medical History: Reports: Diabetes Mellitus Type 2 Past Surgical History Past Surgical History: Reports: Orthopedic Surgery - Right foot and left wrist Social History Information Source: Patient, [facility] Records Lives with: Family - With son and his Smoking Status: Former Smoker - Stopped smoking and drinking 32 years ago Electronic Cigarette use?: No Frequency of Alcohol Use: None - Stopped smoking and drinking 32 years ago Hx Recreational Drug Use: No Hx Prescription Drug Abuse: No - Advance Directive Resuscitation Status: Full Code Family History Family History: CAD - Brother, DM - Mother, Hypertension - Sister, Malignancy - Prostate cancer in his father Parental Family History Reviewed: Yes Children Family History Reviewed: Yes Sibling(s) Family History Reviewed.: Yes Medication/Allergy Home Medications: Amlodipine Besylate [Norvasc 10 mg Tablet] 10 mg PO DAILY 02/10/20 Aspirin [Adult Low Dose Aspirin EC] 81 mg PO DAILY 02/10/20 Atorvastatin Calcium [Lipitor 40 mg Tablet] 40 mg PO QHS 02/10/20 Dorzolamide HCl/Pf [Dorzolamide 2% Eye Drop] 1 drop OU BID 02/10/20 Ferrous Sulfate [Feosol 325 mg Tablet] 325 mg PO DAILY 02/10/20 Insulin Aspart [Novolog Insulin (Aspart) 100 unit/mL] 5 units SQ WSUPPER 02/10/20 Insulin Detemir [Levemir] 15 units SQ QHS 02/10/20 L.acidoph,Paracasei, B.lactis [Probiotic] 1 cap PO DAILY 02/10/20 Latanoprost [Xalatan 0.005% Oph Soln 2.5 ml] 1 drop OU QHS 02/10/20 Metoprolol Succinate [Toprol Xl 50 mg Tab.sr] 50 mg PO DAILY 02/10/20 Mirtazapine [Remeron 15 mg Tablet] 15 mg PO QHS 02/10/20 Pantoprazole Sodium [Protonix [address] Tablet] 40 mg PO QAM 02/10/20 Trazodone HCl [Desyrel 50 mg Tablet] 25 mg PO QHS 02/10/20 Allergies/Adverse Reactions: amoxicillin [From Amoxil] Allergy (Verified 02/10/20 13:43) Review of Systems All systems: reviewed and no additional remarkable complaints except as stated Review of Systems: Constitutional: ABSENT: chills, fatigue, fever(s), headache(s), weight gain, weight loss, reported decreased appetite upon admission Eyes: ABSENT: visual disturbances Ears: ABSENT: hearing changes Cardiovascular: ABSENT: chest pain, dyspnea on exertion, edema, orthropnea, palpitations Respiratory: ABSENT: cough, dyspnea, hemoptysis Gastrointestinal: ABSENT: Constipation, diarrhea, hematemesis, hematochezia, nausea, vomiting; presented with abdominal bloating and pain Genitourinary: ABSENT: dysuria, hematuria Musculoskeletal: ABSENT: joint swelling Integumentary: ABSENT: rash, wounds Neurological: ABSENT: abnormal gait, abnormal speech, confusion, dizziness, focal weakness, numbness, syncope Psychiatric: ABSENT: anxiety, depression Endocrine: ABSENT: cold intolerance, heat intolerance, polydipsia, polyuria Hematologic/Lymphatic: ABSENT: easy bleeding, easy bruising, lymphadenopathy Physical Exam Vital Signs: Temp Pulse Resp BP Pulse Ox 98.8 F 118 H 18 140/65 H 96 02/15/20 07:25 02/15/20 07:25 02/15/20 07:25 02/15/20 07:25 02/15/20 07:25 Intake & Output 02/14/20 02/15/20 02/16/20 06:59 06:59 06:59 Intake Total 4560 5705 Output Total 3380 230 Balance 1180 5475 Weight 80 kg 81 kg Vitals during dialysis: Blood pressure 154/66, heart rate of 100, blood flow rate of 250 mL/min and dialysate flow rate of 600 mL/min. Exam: General appearance: No acute distress, cooperative, well-developed, well-nouris hed Head exam: PRESENT: atraumatic, normocephalic Eye exam: PRESENT: Conjunctiva slightly pale, EOMI, PERRLA. ABSENT: conjunctival injection, scleral icterus Mouth exam: PRESENT: moist, neck supple, tongue midline, NG tube in place Neck exam: PRESENT: full ROM. ABSENT: carotid bruit, JVD, lymphadenopathy, thyromegaly Respiratory exam: PRESENT: clear to auscultation bilaterally. ABSENT: rales, r honchi, stridor, wheezes Cardiovascular exam: PRESENT: RRR, +S1, +S2. ABSENT: systolic murmur Pulses: PRESENT: normal radial pulses, normal dorsalis pedis pulses GI/Abdominal exam: PRESENT: Infrequent bowel sounds, firm and bloated. Right lower quadrant ileostomy in place with minimal drainage ABSENT: guarding, mass, tenderness Rectal exam: Deferred Extremities exam: PRESENT: full ROM. ABSENT: calf tenderness, pedal edema Musculoskeletal: PRESENT: full ROM. ABSENT: deformity Neurological exam: PRESENT: alert, Awake, Oriented to person, Oriented to place, Oriented to time, reflexes normal, CN II-XII grossly intact. ABSENT: motor sensory deficit Psychiatric exam: PRESENT: appropriate affect, normal mood. ABSENT: homicidal ideation, suicidal ideation Skin exam: PRESENT: intact, dry, warm. ABSENT: rash Results Laboratory Results: 02/15/20 05:26 02/15/20 05:26 02/15/20 02/15/20 05:26 05:26 WBC 13.6 H RBC 3.35 L Hgb 8.6 L Hct 27.0 L MCV 81 MCH 25.7 L MCHC 31.9 L RDW 16.3 H Plt Count 257 Seg Neutrophils % 88.2 H Sodium 139.6 Potassium 4.5 Chloride 111 H Carbon Dioxide 20 L Anion Gap 9 BUN 32 H Creatinine 3.65 H Est GFR ( Amer) 20 L Glucose 204 H Calcium 8.4 Magnesium 1.8 Impressions: Abdomen/Pelvis CT 02/10/20 01:59 IMPRESSION: 1. Colonic obstruction with transition point in the sigmoid colon, indeterminate for sigmoid volvulus versus an internal hernia (although likely sigmoid volvulus). Maximum colonic diameter (at the cecum) 8 cm. 2. No perforation or abscess. 3. Other chronic findings as described. KUB X-Ray 02/15/20 07:58 IMPRESSION: 1. The tip of the enteric tube projects within the gastric lumen. 2. Postoperative free intraperitoneal gas. 3. Diffuse gaseous dilatation of the bowel - correlate for postoperative ileus. Assessment & Plan - Diagnosis (1) Acute kidney injury Is this a current diagnosis for this admission?: Yes Plan: Patient is currently anuric. Cumulative fluid balance is +7.5 L since admission. No evidence of hydronephrosis on kidney ultrasound. Patient received contrast on admission but his kidney function actually improved for couple days after that. No other nephrotoxic medications identified. Exact etiology of the worsening kidney function in the last 24 hours is unclear. Since the patient is anuric with a rapid decline of the kidney function for the past 24 hours I recommended to do gentle dialysis today since we do not have any dialysis over the weekend. Nevertheless the patient's kidney function needs to be closely monitored. Avoid further nephrotoxic medications and maintain euvolemia. The patient might also have an underlying chronic kidney disease although we do not have much previous records nor labs on this patient to actually establish his baseline kidney function. He does not appear to have significant albuminuria nor microhematuria. Risk factors for possible chronic kidney disease include diabetes and hypertension. We will do dialysis today for 2 hours, using the patient's right femoral trialysis catheter, with 2 potassium bath, blood flow rate of 250 mL per minute, dialysate flow rate of 600 mL per minute, ultrafiltration 1 to 1.5 L as tolerated, no heparin and no Retacrit. Patient will be monitored throughout dialysis treatment. Treatment will be adjusted accordingly. Discussed dialysis plan with our dialysis nurse. (2) Volvulus of sigmoid colon Is this a current diagnosis for this admission?: Yes Plan: Status post sigmoidectomy with temporary protective right ileostomy on February 13, 2020. Surgery following. (3) Anemia Is this a current diagnosis for this admission?: Yes Plan: Partly would be secondary to some blood loss during surgery plus chronic illness. (4) Diabetes mellitus type 2 in nonobese Is this a current diagnosis for this admission?: Yes Plan: Hospitalist managing. (5) Hypertension Qualifiers: Hypertension type: essential hypertension Qualified Code(s): I10 - Essential (primary) hypertension Is this a current diagnosis for this admission?: Yes Plan: Within acceptable limits currently. - Notes Notes: Thank you very much for this consultation. Discussed with Dr. Lara. - Time Time Spent: Greater than 70 Minutes
--- NOTE | 2020-02-15 16:56 | PDOC PROGRESS REPORT ---
Subjective Progress Note for:: 02/15/20 Subjective:: Complaining of some nausea. Reason For Visit: SIGMOID VOLVULOUS Physical Exam Vital Signs: Temp Pulse Resp BP Pulse Ox 98.4 F 61 18 132/49 H 95 02/15/20 11:44 02/15/20 11:44 02/15/20 11:44 02/15/20 11:44 02/15/20 11:44 Intake & Output 02/14/20 02/15/20 02/16/20 06:59 06:59 06:59 Intake Total 4560 5705 800 Output Total 3380 230 3600 Balance 1180 5475 -2800 Weight 80 kg 81 kg Exam: Patient was seen with Dr. Witt and noted to have abdominal distention. An NG tube was inserted and drained about 1800 cc of dark greenish fluid He appears dehydrated with low urine output and tachycardia. Ileostomy slightly less edematous but still nonfunctioning. Results Laboratory Results: 02/15/20 05:26 02/15/20 05:26 02/15/20 02/15/20 05:26 05:26 WBC 13.6 H RBC 3.35 L Hgb 8.6 L Hct 27.0 L MCV 81 MCH 25.7 L MCHC 31.9 L RDW 16.3 H Plt Count 257 Seg Neutrophils % 88.2 H Sodium 139.6 Potassium 4.5 Chloride 111 H Carbon Dioxide 20 L Anion Gap 9 BUN 32 H Creatinine 3.65 H Est GFR ( Amer) 20 L Glucose 204 H Calcium 8.4 Magnesium 1.8 Impressions: Abdomen/Pelvis CT 02/10/20 01:59 IMPRESSION: 1. Colonic obstruction with transition point in the sigmoid colon, indeterminate for sigmoid volvulus versus an internal hernia (although likely sigmoid volvulus). Maximum colonic diameter (at the cecum) 8 cm. 2. No perforation or abscess. 3. Other chronic findings as described. Renal Ultrasound 02/15/20 00:00 IMPRESSION: There is increased echogenicity of the kidneys, suggesting medical renal disease. There is a large cyst on the left kidney. KUB X-Ray 02/15/20 07:58 IMPRESSION: 1. The tip of the enteric tube projects within the gastric lumen. 2. Postoperative free intraperitoneal gas. 3. Diffuse gaseous dilatation of the bowel - correlate for postoperative ileus. Assessment & Plan - Diagnosis (1) Acute kidney injury Is this a current diagnosis for this admission?: Yes (2) Diabetes mellitus type 2 in nonobese Is this a current diagnosis for this admission?: Yes (3) Hypertension Qualifiers: Hypertension type: essential hypertension Qualified Code(s): I10 - Essential (primary) hypertension Is this a current diagnosis for this admission?: Yes (4) Volvulus of sigmoid colon Is this a current diagnosis for this admission?: Yes (5) Ileus, postoperative Is this a current diagnosis for this admission?: Yes (6) Elevated creatinine to dehydration Is this a current diagnosis for this admission?: Yes - Time Critical Time spent with patient: 15-24 minutes - Inpatient Certification Medical Necessity: Need For IV Fluids - Plan Summary Plan Summary: 79-year-old male postop day #2 post sigmoid colon resection with primary anastomosis with ileostomy. He appears dehydrated with increasing creatinine about 3 and low urine output. An NG tube was inserted which drained about 1500 cc of dark greenish fluid. Patient immediately given more fluids and consultation obtained with Dr. Lo who claims patient needed hemodialysis today. A dialysis catheter was placed in the right femoral vein and patient started on hemodialysis. Patient remains alert and oriented. Plans: Continue with IV hydration and correct electrolytes. NGT to low intermittent suction Hemodialysis
--- NOTE | 2020-02-15 17:02 | Operative Report ---
Operative Report DATE OF SURGERY: 02/15/20 PREOPERATIVE DIAGNOSIS: Elevated creatinine requiring hemodialysis POSTOPERATIVE DIAGNOSIS: Same OPERATION: Placement of dialysis catheter via the right femoral vein under ultrasound guidance SURGEON: JODIE MAURICIO ANESTHESIA: Local TISSUE REMOVED OR ALTERED: None COMPLICATIONS: None ESTIMATED BLOOD LOSS: 20 cc QUANTITATIVE BLOOD LOSS: 20 INTRAOPERATIVE FINDINGS: Normal right femoral vein on ultrasound PROCEDURE: After informed consent patient was placed in supine position on the bed stretcher in the right groin prepped and draped in the usual sterile fashion. With the use of the ultrasound the right common femoral vein was not identified and skin over it was anesthetized with lidocaine. Right femoral vein and subsequently punctured and guidewire passed through the needle towards the area of the inferior vena cava. The insertion site was then dilated and a 30 cm trialysis catheter inserted through the guidewire. Catheter was inserted close to the hub. It was then anchored to the skin with 3-0 nylon. All the ports easily aspirated blood and instilled saline also. Patient tolerated procedure well. Patient will go immediately to dialysis room to start hemodialysis.
--- NOTE | 2020-02-15 17:22 | PDOC PROGRESS REPORT ---
Subjective Progress Note for:: 02/15/20 Subjective:: No adverse events overnight. He has had minimal urine output if any. Creatinine has gone up more. He does not feel great but overall he is comfortable. Reason For Visit: SIGMOID VOLVULOUS Physical Exam Vital Signs: Temp Pulse Resp BP Pulse Ox 98.4 F 61 18 132/49 H 95 02/15/20 11:44 02/15/20 11:44 02/15/20 11:44 02/15/20 11:44 02/15/20 11:44 Intake & Output 02/14/20 02/15/20 02/16/20 06:59 06:59 06:59 Intake Total 4560 5705 800 Output Total 3380 230 3600 Balance 1180 5475 -2800 Weight 80 kg 81 kg General appearance: PRESENT: no acute distress, cooperative, disheveled, other - Appears fatigued Respiratory exam: PRESENT: clear to auscultation shazia, symmetrical, unlabored. ABSENT: accessory muscle use, chest wall tenderness, crackles, rhonchi, tachypnea Cardiovascular exam: PRESENT: irregular rhythm. ABSENT: tachycardia Pulses: PRESENT: normal carotid pulses Vascular exam: PRESENT: normal capillary refill GI/Abdominal exam: PRESENT: hypoactive bowel sounds, soft, other - Diverting ileostomy with a scant amount of fluid in the bag. ABSENT: distended, guarding, rebound, tenderness Extremities exam: ABSENT: clubbing, pedal edema Musculoskeletal exam: PRESENT: normal inspection. ABSENT: deformity Neurological exam: PRESENT: awake, oriented to person, oriented to place, oriented to situation Psychiatric exam: PRESENT: flat affect Skin exam: PRESENT: dry, warm Results Laboratory Results: 02/15/20 05:26 02/15/20 05:26 02/15/20 02/15/20 05:26 05:26 WBC 13.6 H RBC 3.35 L Hgb 8.6 L Hct 27.0 L MCV 81 MCH 25.7 L MCHC 31.9 L RDW 16.3 H Plt Count 257 Seg Neutrophils % 88.2 H Sodium 139.6 Potassium 4.5 Chloride 111 H Carbon Dioxide 20 L Anion Gap 9 BUN 32 H Creatinine 3.65 H Est GFR ( Amer) 20 L Glucose 204 H Calcium 8.4 Magnesium 1.8 Impressions: Abdomen/Pelvis CT 02/10/20 01:59 IMPRESSION: 1. Colonic obstruction with transition point in the sigmoid colon, indeterminate for sigmoid volvulus versus an internal hernia (although likely sigmoid volvulus). Maximum colonic diameter (at the cecum) 8 cm. 2. No perforation or abscess. 3. Other chronic findings as described. Renal Ultrasound 02/15/20 00:00 IMPRESSION: There is increased echogenicity of the kidneys, suggesting medical renal disease. There is a large cyst on the left kidney. KUB X-Ray 02/15/20 07:58 IMPRESSION: 1. The tip of the enteric tube projects within the gastric lumen. 2. Postoperative free intraperitoneal gas. 3. Diffuse gaseous dilatation of the bowel - correlate for postoperative ileus. Assessment and Plan - Diagnosis (1) Acute kidney injury Is this a current diagnosis for this admission?: Yes Plan: Despite hydration, he did not put out any urine. Dr. Lo was consulted and has recommended hemodialysis. A temporary dialysis catheter was placed and he received his first treatment today. (2) Chronic diastolic heart failure Is this a current diagnosis for this admission?: Yes Plan: Not acutely exacerbated (3) Diabetes mellitus type 2 in nonobese Is this a current diagnosis for this admission?: Yes Plan: Blood sugars are somewhat elevated, will monitor and adjust coverage accordingly (4) Hypertension Qualifiers: Hypertension type: essential hypertension Qualified Code(s): I10 - Essential (primary) hypertension Is this a current diagnosis for this admission?: Yes Plan: Good control (5) Ileus, postoperative Is this a current diagnosis for this admission?: Yes Plan: NG tube was placed today and proximately 2 L came out immediately. Management per surgery. (6) Volvulus of sigmoid colon Is this a current diagnosis for this admission?: Yes Plan: Status post surgical repair with placement of diverting ileostomy - Plan Summary Summary: Thank you for allowing us to take care of this very pleasant 79-year-old surgical patient. We will continue to follow during his hospitalization and make adjustments in his medications based on the patient's clinical status, Accu-checks, vital signs and laboratory studies. - Time Time Spent with patient: 15-24 minutes
[2020-02-15] MEDS: TRAZODONE HCL 50 MG TABLET PO SCH (21:01)
[2020-02-15] MEDS: ATORVASTATIN CALCIUM 40 MG TABLET PO SCH (21:01)
[2020-02-15] MEDS: LATANOPROST 0.005% OPH SOLN 2.5 ML OU SCH (21:52)
[2020-02-16] MEDS: NORMAL SALINE 1000 ML 1,000 ML IV PRN ×4 (00:39→23:00)
[2020-02-16] MEDS: METOPROLOL TARTRATE PF/INJ 5 MG/5 ML SDV IV SCH ×3 (05:23→16:59)
[2020-02-16 05:48] LABS: ABSOLUTE EOSINOPHILS # (AUTO) 0.1 10^3/uL (0.0-0.6); ABSOLUTE LYMPHOCYTES (AUTO) 0.8 10^3/uL (0.5-4.7); ABSOLUTE MONOCYTES (AUTO) 0.9 10^3/uL (0.1-1.4); BASOPHILS % (AUTO) 0.1 % (0-2); EOSINOPHILS % (AUTO) 0.6 % (0-6); HEMATOCRIT 23.3 % (37.9-51.0); LYMPHOCYTES % (AUTO) 8.2 % (13-45); MEAN CORPUSCULAR HGB CONC 32.7 g/dL (32.0-36.0); MEAN CORPUSCULAR VOLUME 80 fl (80-97); MONOCYTES % (AUTO) 8.9 % (3-13); PLATELET COUNT 246 10^3/uL (150-450); RED BLOOD COUNT 2.93 10^6/uL (4.35-5.55); SEGMENTED NEUTROPHILS % (AUTO) 82.2 % (42-78); TOTAL CELLS COUNTED % (AUTO) 100 %; WHITE BLOOD COUNT 9.7 10^3/uL (4.0-10.5)
[2020-02-16 05:49] LABS: HEMOGLOBIN 7.6 g/dL (13.5-17.0)
[2020-02-16 06:05] LABS: ANION GAP 10 (5-19); BLOOD UREA NITROGEN 31 mg/dL (7-20); CALCIUM 7.8 mg/dL (8.4-10.2); CARBON DIOXIDE 22 mmol/L (22-30); CHLORIDE 108 mmol/L (98-107); GLUCOSE 201 mg/dL (75-110)
[2020-02-16 06:09] LABS: POTASSIUM 3.4 mmol/L (3.6-5.0)
[2020-02-16 06:37] LABS: HEPATITS B SURFACE ANTIGEN Negative (Negative)
[2020-02-16] MEDS: INSULIN LISPRO 100 UNIT/ML 3 ML VIAL SUBCUT SCH ×4 (09:10→23:00)
[2020-02-16] MEDS: DORZOLAMIDE HCL 2% OPH SOLN 10 ML OU SCH ×2 (09:12→22:15)
[2020-02-16] MEDS: PANTOPRAZOLE SODIUM 40 MG VIAL IV SCH (09:12)
--- NOTE | 2020-02-16 09:16 | PDOC PROGRESS REPORT ---
Subjective Progress Note for:: 02/16/20 Subjective:: feels ok Reason For Visit: SIGMOID VOLVULOUS Physical Exam Vital Signs: Temp Pulse Resp BP Pulse Ox 97.7 F 96 16 145/48 H 95 02/16/20 08:34 02/16/20 08:34 02/16/20 08:34 02/16/20 08:34 02/16/20 08:34 Intake & Output 02/15/20 02/16/20 02/17/20 06:59 06:59 06:59 Intake Total 5705 4267 Output Total 230 4685 Balance 5475 -418 Weight 81 kg 80.9 kg General appearance: PRESENT: no acute distress Head exam: PRESENT: normocephalic Eye exam: PRESENT: EOMI Mouth exam: PRESENT: dry mucosa, moist Teeth exam: PRESENT: poor dentation Neck exam: PRESENT: full ROM Respiratory exam: PRESENT: clear to auscultation shazia Cardiovascular exam: PRESENT: RRR Pulses: PRESENT: normal femoral pulses, normal dorsalis pedis pul Vascular exam: PRESENT: normal capillary refill Breast: PRESENT: Normal GI/Abdominal exam: PRESENT: diminished bowel sounds, distended, other - stoma pink, swollen Rectal exam: PRESENT: deferred Extremities exam: PRESENT: full ROM Musculoskeletal exam: PRESENT: full ROM Neurological exam: PRESENT: alert, awake Skin exam: PRESENT: dry Results Laboratory Results: 02/16/20 05:20 02/16/20 05:20 02/16/20 02/16/20 02/16/20 05:20 05:20 06:42 WBC 9.7 RBC 2.93 L Hgb 7.6 L Hct 23.3 L MCV 80 MCH 26.0 L MCHC 32.7 RDW 16.0 H Plt Count 246 Seg Neutrophils % 82.2 H Sodium 139.8 Potassium 3.4 L D Chloride 108 H Carbon Dioxide 22 Anion Gap 10 BUN 31 H Creatinine 3.30 H Est GFR ( Amer) 22 L Glucose 201 H Calcium 7.8 L Magnesium 1.9 Blood Type O POSITIVE Antibody Screen NEGATIVE Impressions: Abdomen/Pelvis CT 02/10/20 01:59 IMPRESSION: 1. Colonic obstruction with transition point in the sigmoid colon, indeterminate for sigmoid volvulus versus an internal hernia (although likely sigmoid volvulus). Maximum colonic diameter (at the cecum) 8 cm. 2. No perforation or abscess. 3. Other chronic findings as described. Renal Ultrasound 02/15/20 00:00 IMPRESSION: There is increased echogenicity of the kidneys, suggesting medical renal disease. There is a large cyst on the left kidney. KUB X-Ray 02/15/20 07:58 IMPRESSION: 1. The tip of the enteric tube projects within the gastric lumen. 2. Postoperative free intraperitoneal gas. 3. Diffuse gaseous dilatation of the bowel - correlate for postoperative ileus. Assessment & Plan - Plan Summary Plan Summary: pod 3 s/p resection of sigmoid volvolus and temporary ileostomy now iwth decliing renal function ? etiol appreciate input from nephrology and medicine ng tube in place, draining abd still distended few bs no flatus plan cont fluid replacement awaiting return of bowel function.
[2020-02-16 11:26] LABS: HEPATITIS B CORE AB TOT Negative (Negative)
--- NOTE | 2020-02-16 14:48 | PDOC PROGRESS REPORT ---
Subjective Progress Note for:: 02/16/20 Subjective:: No adverse events overnight. He had dialysis yesterday and tolerated it well. He is a very stoic ho and does not complain of very much. He denies any acute pain. Reason For Visit: SIGMOID VOLVULOUS Physical Exam Vital Signs: Temp Pulse Resp BP Pulse Ox 98.8 F 105 H 18 122/49 L 96 02/16/20 12:57 02/16/20 12:57 02/16/20 12:57 02/16/20 12:57 02/16/20 12:57 Intake & Output 02/15/20 02/16/20 02/17/20 06:59 06:59 06:59 Intake Total 5705 4267 0 Output Total 230 4685 Balance 5475 -418 0 Weight 81 kg 80.9 kg General appearance: PRESENT: no acute distress, cooperative, disheveled, other - Appears fatigued Respiratory exam: PRESENT: clear to auscultation shazia, symmetrical, unlabored. ABSENT: accessory muscle use, chest wall tenderness, crackles, rhonchi, tachypnea Cardiovascular exam: PRESENT: irregular rhythm. ABSENT: tachycardia Pulses: PRESENT: normal carotid pulses Vascular exam: PRESENT: normal capillary refill GI/Abdominal exam: PRESENT: hypoactive bowel sounds, soft, other - Diverting ileostomy with a scant amount of fluid in the bag. ABSENT: distended, guarding, rebound, tenderness Extremities exam: ABSENT: clubbing, pedal edema Musculoskeletal exam: PRESENT: normal inspection. ABSENT: deformity Neurological exam: PRESENT: awake, oriented to person, oriented to place, oriented to situation Psychiatric exam: PRESENT: flat affect Skin exam: PRESENT: dry, warm Results Laboratory Results: 02/16/20 05:20 02/16/20 05:20 02/16/20 02/16/20 02/16/20 05:20 05:20 06:42 WBC 9.7 RBC 2.93 L Hgb 7.6 L Hct 23.3 L MCV 80 MCH 26.0 L MCHC 32.7 RDW 16.0 H Plt Count 246 Seg Neutrophils % 82.2 H Sodium 139.8 Potassium 3.4 L D Chloride 108 H Carbon Dioxide 22 Anion Gap 10 BUN 31 H Creatinine 3.30 H Est GFR ( Amer) 22 L Glucose 201 H Calcium 7.8 L Magnesium 1.9 Blood Type O POSITIVE Antibody Screen NEGATIVE Impressions: Abdomen/Pelvis CT 02/10/20 01:59 IMPRESSION: 1. Colonic obstruction with transition point in the sigmoid colon, indeterminate for sigmoid volvulus versus an internal hernia (although likely sigmoid volvulus). Maximum colonic diameter (at the cecum) 8 cm. 2. No perforation or abscess. 3. Other chronic findings as described. Renal Ultrasound 02/15/20 00:00 IMPRESSION: There is increased echogenicity of the kidneys, suggesting medical renal disease. There is a large cyst on the left kidney. KUB X-Ray 02/15/20 07:58 IMPRESSION: 1. The tip of the enteric tube projects within the gastric lumen. 2. Postoperative free intraperitoneal gas. 3. Diffuse gaseous dilatation of the bowel - correlate for postoperative ileus. Assessment and Plan - Diagnosis (1) Acute kidney injury Is this a current diagnosis for this admission?: Yes Plan: Creatinine stable from yesterday. He had his first dialysis treatment yesterday. Nephrology is following. Urine output is still been minimal. (2) Chronic diastolic heart failure Is this a current diagnosis for this admission?: Yes Plan: Not acutely exacerbated (3) Diabetes mellitus type 2 in nonobese Is this a current diagnosis for this admission?: Yes Plan: Blood sugars are somewhat elevated, will monitor and adjust coverage accordingly. Hesitant to increase his insulin while he is n.p.o. for fear of hypoglycemia. (4) Hypertension Qualifiers: Hypertension type: essential hypertension Qualified Code(s): I10 - Essential (primary) hypertension Is this a current diagnosis for this admission?: Yes Plan: Good control (5) Ileus, postoperative Is this a current diagnosis for this admission?: Yes Plan: NG tube continues to have a fair amount of output. Management per surgery. (6) Volvulus of sigmoid colon Is this a current diagnosis for this admission?: Yes Plan: Status post surgical repair with placement of diverting ileostomy - Plan Summary Summary: Thank you for allowing us to take care of this very pleasant 79-year-old surgical patient. We will continue to follow during his hospitalization and make adjustments in his medications based on the patient's clinical status, Accu-checks, vital signs and laboratory studies. - Time Time Spent with patient: 25-34 minutes
[2020-02-16] MEDS: MORPHINE SULFATE 10 MG/ML INJ IV PRN (17:16)
[2020-02-16 19:21] LABS: ABSOLUTE LYMPHOCYTES (AUTO) 0.7 10^3/uL (0.5-4.7); ABSOLUTE MONOCYTES (AUTO) 0.7 10^3/uL (0.1-1.4); ABSOLUTE NEUT (AUTO) 4.7 10^3/uL (1.7-8.2); BASOPHILS % (AUTO) 0.3 % (0-2); EOSINOPHILS % (AUTO) 0.3 % (0-6); HEMATOCRIT 26.9 % (37.9-51.0); HEMOGLOBIN 9.2 g/dL (13.5-17.0); MEAN CORPUSCULAR HEMOGLOBIN 27.6 pg (27.0-33.4); MEAN CORPUSCULAR HGB CONC 34.4 g/dL (32.0-36.0); MEAN CORPUSCULAR VOLUME 80 fl (80-97); MONOCYTES % (AUTO) 11.6 % (3-13); PLATELET COUNT 255 10^3/uL (150-450); RED BLOOD COUNT 3.34 10^6/uL (4.35-5.55); RED CELL DISTRIBUTION WIDTH 16.4 % (11.5-14.0); SEGMENTED NEUTROPHILS % (AUTO) 76.8 % (42-78); TOTAL CELLS COUNTED % (AUTO) 100 %; WHITE BLOOD COUNT 6.1 10^3/uL (4.0-10.5)
[2020-02-16] MEDS: TRAZODONE HCL 50 MG TABLET PO SCH (21:50)
[2020-02-16] MEDS: ATORVASTATIN CALCIUM 40 MG TABLET PO SCH (21:50)
[2020-02-16] MEDS: LATANOPROST 0.005% OPH SOLN 2.5 ML OU SCH (22:15)
[2020-02-17] MEDS: METOPROLOL TARTRATE PF/INJ 5 MG/5 ML SDV IV SCH ×4 (01:23→17:14)
[2020-02-17] MEDS: NORMAL SALINE 1000 ML 1,000 ML IV PRN ×2 (04:15→14:36)
[2020-02-17 06:48] LABS: ABSOLUTE EOSINOPHILS # (AUTO) 0.1 10^3/uL (0.0-0.6); ABSOLUTE LYMPHOCYTES (AUTO) 0.6 10^3/uL (0.5-4.7); ABSOLUTE MONOCYTES (AUTO) 0.8 10^3/uL (0.1-1.4); ABSOLUTE NEUT (AUTO) 5.9 10^3/uL (1.7-8.2); BASOPHILS % (AUTO) 0.2 % (0-2); EOSINOPHILS % (AUTO) 0.8 % (0-6); HEMATOCRIT 27.9 % (37.9-51.0); HEMOGLOBIN 9.5 g/dL (13.5-17.0); MEAN CORPUSCULAR HEMOGLOBIN 27.4 pg (27.0-33.4); MEAN CORPUSCULAR VOLUME 81 fl (80-97); MONOCYTES % (AUTO) 10.8 % (3-13); PLATELET COUNT 273 10^3/uL (150-450); RED BLOOD COUNT 3.47 10^6/uL (4.35-5.55); RED CELL DISTRIBUTION WIDTH 16.1 % (11.5-14.0); SEGMENTED NEUTROPHILS % (AUTO) 80.2 % (42-78); TOTAL CELLS COUNTED % (AUTO) 100 %; WHITE BLOOD COUNT 7.4 10^3/uL (4.0-10.5)
[2020-02-17 07:23] LABS: ANION GAP 12 (5-19); BLOOD UREA NITROGEN 43 mg/dL (7-20); CALCIUM 7.9 mg/dL (8.4-10.2); CARBON DIOXIDE 19 mmol/L (22-30); CHLORIDE 111 mmol/L (98-107); GLUCOSE 248 mg/dL (75-110); POTASSIUM 3.4 mmol/L (3.6-5.0)
[2020-02-17] MEDS: INSULIN LISPRO 100 UNIT/ML 3 ML VIAL SUBCUT SCH ×4 (08:50→22:39)
[2020-02-17] MEDS: DORZOLAMIDE HCL 2% OPH SOLN 10 ML OU SCH ×2 (09:24→21:03)
[2020-02-17] MEDS: PANTOPRAZOLE SODIUM 40 MG VIAL IV SCH (09:31)
--- NOTE | 2020-02-17 10:26 | PDOC PROGRESS REPORT ---
Subjective Progress Note for:: 02/17/20 Subjective:: awake, comfortable Reason For Visit: SIGMOID VOLVULOUS Physical Exam Vital Signs: Temp Pulse Resp BP Pulse Ox 98.3 F 64 16 135/60 H 97 02/17/20 08:15 02/17/20 08:15 02/17/20 08:15 02/17/20 08:15 02/17/20 08:15 Intake & Output 02/16/20 02/17/20 02/18/20 06:59 06:59 06:59 Intake Total 4272 3300 Output Total 4685 1605 Balance -418 1695 Weight 80.9 kg 81.2 kg General appearance: PRESENT: no acute distress Head exam: PRESENT: normocephalic Eye exam: PRESENT: EOMI Ear exam: PRESENT: normal external ear exam Mouth exam: PRESENT: moist Teeth exam: PRESENT: poor dentation Neck exam: PRESENT: full ROM Respiratory exam: PRESENT: clear to auscultation shazia Cardiovascular exam: PRESENT: RRR Pulses: PRESENT: normal radial pulses, normal femoral pulses Breast: PRESENT: Normal GI/Abdominal exam: PRESENT: distended, hypoactive bowel sounds, other - stoma pink, still not putting out enteric Rectal exam: PRESENT: deferred Gentrourinary exam: PRESENT: indwelling catheter Extremities exam: PRESENT: full ROM Musculoskeletal exam: PRESENT: full ROM Neurological exam: PRESENT: alert, awake, oriented to person, oriented to place Psychiatric exam: PRESENT: appropriate affect Skin exam: PRESENT: dry Results Laboratory Results: 02/17/20 06:05 02/17/20 06:05 02/16/20 02/16/20 02/17/20 06:42 18:55 06:05 WBC 6.1 7.4 RBC 3.34 L 3.47 L Hgb 9.2 L 9.5 L Hct 26.9 L 27.9 L MCV 80 81 MCH 27.6 27.4 MCHC 34.4 34.0 RDW 16.4 H 16.1 H Plt Count 255 273 Seg Neutrophils % 76.8 80.2 H Sodium Potassium Chloride Carbon Dioxide Anion Gap BUN Creatinine Est GFR ( Amer) Glucose Calcium Magnesium Blood Type O POSITIVE Antibody Screen NEGATIVE 02/17/20 06:05 WBC RBC Hgb Hct MCV MCH MCHC RDW Plt Count Seg Neutrophils % Sodium 142.0 Potassium 3.4 L Chloride 111 H Carbon Dioxide 19 L Anion Gap 12 BUN 43 H Creatinine 3.26 H Est GFR ( Amer) 22 L Glucose 248 H Calcium 7.9 L Magnesium 2.2 Blood Type Antibody Screen Impressions: Abdomen/Pelvis CT 02/10/20 01:59 IMPRESSION: 1. Colonic obstruction with transition point in the sigmoid colon, indeterminate for sigmoid volvulus versus an internal hernia (although likely sigmoid volvulus). Maximum colonic diameter (at the cecum) 8 cm. 2. No perforation or abscess. 3. Other chronic findings as described. Renal Ultrasound 02/15/20 00:00 IMPRESSION: There is increased echogenicity of the kidneys, suggesting medical renal disease. There is a large cyst on the left kidney. KUB X-Ray 02/15/20 07:58 IMPRESSION: 1. The tip of the enteric tube projects within the gastric lumen. 2. Postoperative free intraperitoneal gas. 3. Diffuse gaseous dilatation of the bowel - correlate for postoperative ileus. Assessment & Plan - Plan Summary Plan Summary: post op sigmoidectomy for volvolus post op renal insufficiency required dialysis still with ileus, distension stoma pink creat stable recieved 1 unit prbc yesteday no obvious bleeding plan awaiting retuirn of bowel function creat stable, wbc wnl hct stable
--- NOTE | 2020-02-17 14:55 | PDOC PROGRESS REPORT ---
Subjective Progress Note for:: 02/17/20 Subjective:: No adverse events overnight. Vital signs been stable. Urine output remains minimal. He still having fairly copious output through his NG tube. Minimal serous sanguinous secretions in his ileostomy. He denies any significant pain, but he is fairly stoic. Reason For Visit: SIGMOID VOLVULOUS Physical Exam Vital Signs: Temp Pulse Resp BP Pulse Ox 98.3 F 64 16 135/60 H 97 02/17/20 08:15 02/17/20 08:15 02/17/20 08:15 02/17/20 08:15 02/17/20 08:15 Intake & Output 02/16/20 02/17/20 02/18/20 06:59 06:59 06:59 Intake Total 4267 3300 1157 Output Total 4685 1605 Balance -418 1695 1157 Weight 80.9 kg 81.2 kg General appearance: PRESENT: no acute distress, cooperative, disheveled, other - Appears fatigued Respiratory exam: PRESENT: clear to auscultation shazia, symmetrical, unlabored. ABSENT: accessory muscle use, chest wall tenderness, crackles, rhonchi, tachypnea Cardiovascular exam: PRESENT: irregular rhythm. ABSENT: tachycardia Pulses: PRESENT: normal carotid pulses Vascular exam: PRESENT: normal capillary refill GI/Abdominal exam: PRESENT: hypoactive bowel sounds, soft, other - Diverting ileostomy with a scant amount of fluid in the bag. ABSENT: distended, guarding, rebound, tenderness Extremities exam: ABSENT: clubbing, pedal edema Musculoskeletal exam: PRESENT: normal inspection. ABSENT: deformity Neurological exam: PRESENT: awake, oriented to person, oriented to place, oriented to situation Psychiatric exam: PRESENT: flat affect Skin exam: PRESENT: dry, warm Results Laboratory Results: 02/17/20 06:05 02/17/20 06:05 02/16/20 02/17/20 02/17/20 18:55 06:05 06:05 WBC 6.1 7.4 RBC 3.34 L 3.47 L Hgb 9.2 L 9.5 L Hct 26.9 L 27.9 L MCV 80 81 MCH 27.6 27.4 MCHC 34.4 34.0 RDW 16.4 H 16.1 H Plt Count 255 273 Seg Neutrophils % 76.8 80.2 H Sodium 142.0 Potassium 3.4 L Chloride 111 H Carbon Dioxide 19 L Anion Gap 12 BUN 43 H Creatinine 3.26 H Est GFR ( Amer) 22 L Glucose 248 H Calcium 7.9 L Magnesium 2.2 Impressions: Abdomen/Pelvis CT 02/10/20 01:59 IMPRESSION: 1. Colonic obstruction with transition point in the sigmoid colon, indeterminate for sigmoid volvulus versus an internal hernia (although likely sigmoid volvulus). Maximum colonic diameter (at the cecum) 8 cm. 2. No perforation or abscess. 3. Other chronic findings as described. Renal Ultrasound 02/15/20 00:00 IMPRESSION: There is increased echogenicity of the kidneys, suggesting medical renal disease. There is a large cyst on the left kidney. KUB X-Ray 02/15/20 07:58 IMPRESSION: 1. The tip of the enteric tube projects within the gastric lumen. 2. Postoperative free intraperitoneal gas. 3. Diffuse gaseous dilatation of the bowel - correlate for postoperative ileus. Assessment and Plan - Diagnosis (1) Acute kidney injury Is this a current diagnosis for this admission?: Yes Plan: Creatinine stable. He had his first dialysis treatment Tuesday, and I suspect he may get it again tomorrow. The good thing is, his creatinine is not going up between dialysis treatments. Nephrology is following. Urine output is still been minimal. (2) Chronic diastolic heart failure Is this a current diagnosis for this admission?: Yes Plan: Not acutely exacerbated (3) Diabetes mellitus type 2 in nonobese Is this a current diagnosis for this admission?: Yes Plan: Blood sugars are somewhat elevated, will monitor and adjust coverage accordingly. Hesitant to increase his insulin while he is n.p.o. for fear of hypoglycemia. (4) Hypertension Qualifiers: Hypertension type: essential hypertension Qualified Code(s): I10 - Essential (primary) hypertension Is this a current diagnosis for this admission?: Yes Plan: Good control (5) Ileus, postoperative Is this a current diagnosis for this admission?: Yes Plan: NG tube continues to have a fair amount of output. Management per surgery. (6) Volvulus of sigmoid colon Is this a current diagnosis for this admission?: Yes Plan: Status post surgical repair with placement of diverting ileostomy - Plan Summary Summary: Thank you for allowing us to take care of this very pleasant 79-year-old surgical patient. We will continue to follow during his hospitalization and make adjustments in his medications based on the patient's clinical status, Accu-checks, vital signs and laboratory studies. - Time Time Spent with patient: 25-34 minutes
[2020-02-17] MEDS: MORPHINE SULFATE 10 MG/ML INJ IV PRN (15:07)
[2020-02-17] MEDS: LATANOPROST 0.005% OPH SOLN 2.5 ML OU SCH (21:03)
[2020-02-17] MEDS: ATORVASTATIN CALCIUM 40 MG TABLET PO SCH (21:03)
[2020-02-17] MEDS: TRAZODONE HCL 50 MG TABLET PO SCH (21:03)
[2020-02-18] MEDS: METOPROLOL TARTRATE PF/INJ 5 MG/5 ML SDV IV SCH ×4 (01:35→18:18)
[2020-02-18] MEDS: NORMAL SALINE 1000 ML 1,000 ML IV PRN (02:55)
[2020-02-18] MEDS: MORPHINE SULFATE 10 MG/ML INJ IV PRN ×3 (05:16→18:28)
[2020-02-18 06:37] LABS: HEMATOCRIT 29.5 % (37.9-51.0); HEMOGLOBIN 9.8 g/dL (13.5-17.0); MEAN CORPUSCULAR HGB CONC 33.2 g/dL (32.0-36.0); MEAN CORPUSCULAR VOLUME 82 fl (80-97); PLATELET COUNT 302 10^3/uL (150-450); RED BLOOD COUNT 3.62 10^6/uL (4.35-5.55); RED CELL DISTRIBUTION WIDTH 16.8 % (11.5-14.0); WHITE BLOOD COUNT 10.8 10^3/uL (4.0-10.5)
[2020-02-18 06:49] LABS: ANION GAP 9 (5-19); BLOOD UREA NITROGEN 50 mg/dL (7-20); CARBON DIOXIDE 21 mmol/L (22-30); CHLORIDE 114 mmol/L (98-107); GLUCOSE 251 mg/dL (75-110); POTASSIUM 3.3 mmol/L (3.6-5.0)
[2020-02-18 06:50] LABS: ABSOLUTE LYMPHOCYTES# (MANUAL) 1.1 10^3/uL (0.5-4.7); ABSOLUTE MONOCYTES # (MANUAL) 0.6 10^3/uL (0.1-1.4); BAND NEUTROPHILS % (MANUAL) 7 % (3-5); BASOPHILS % (MANUAL) 0 % (0-2); EOSINOPHILS % (MANUAL) 1 % (0-6); LYMPHOCYTES % (MANUAL) 10 % (13-45); MONOCYTES % (MANUAL) 6 % (3-13); SEGMENTED NEUTROPHILS % (MAN) 76 % (42-78); TOTAL CELLS COUNTED 100
[2020-02-18 06:51] LABS: ANISOCYTOSIS 1+; HYPOCHROMASIA 1+; POLYCHROMASIA 1+
[2020-02-18 06:52] LABS: BURR CELLS 1+; PLATELET COMMENT ADEQUATE
[2020-02-18] MEDS: INSULIN LISPRO 100 UNIT/ML 3 ML VIAL SUBCUT SCH ×3 (08:17→18:21)
[2020-02-18 09:04] LABS: ABSOLUTE RETICS # 0.046 10^6/uL (0.028-0.122); RETICULOCYTE COUNT (AUTO) 1.28 % (0.66-2.85)
[2020-02-18 10:24] LABS: FOLATE 3.49 ng/mL (>2.76)
[2020-02-18 10:30] LABS: IRON(TIBC) < 10.1 ug/dL (49-181)
--- NOTE | 2020-02-18 10:31 | RADIOLOGY REPORT (SQ) ---
EXAM DESCRIPTION: CHEST SINGLE VIEW IMAGES COMPLETED DATE/TIME: 02/18/2020 10:10 am REASON FOR STUDY: cough COMPARISON: None. EXAM PARAMETERS: NUMBER OF VIEWS: One view. TECHNIQUE: An AP view of the chest was obtained. RADIATION DOSE: NA LIMITATIONS: None. FINDINGS: LUNGS AND PLEURA: Low inspiratory lung volumes. There are bilateral basilar predominant p leural and parenchymal opacities that blunt the contours of the costophrenic sulci. There is no pneu mothorax. MEDIASTINUM AND HILAR STRUCTURES: No mediastinal or hilar contour abnormality. HEART AND VASCULAR STRUCTURES: The cardiac silhouette is within normal limits given the low inspirato ry lung volumes. BONES: No acute findings. HARDWARE: The tip and side hole of the enteric tube project within the gastric lumen. OTHER: Free intraperitoneal gas. IMPRESSION: 1. Bilateral basilar predominant pleural and parenchymal opacities that could represent a combination of pleural fluid and atelectasis. 2. The tip of the enteric tube projects within the gastric lumen. 3. Free intraperitoneal gas - correlate for recent intra-abdominal surgery. TECHNICAL DOCUMENTATION: JOB ID: [id number] 2010 [employer]- All Rights Reserved Reading location - IP/workstation name: [email or web address]
[2020-02-18 10:36] LABS: HEPATITIS C QUANTITATION HCV Not Detected IU/mL (.)
[2020-02-18] MEDS: PANTOPRAZOLE SODIUM 40 MG VIAL IV SCH (11:45)
[2020-02-18] MEDS: DORZOLAMIDE HCL 2% OPH SOLN 10 ML OU SCH ×2 (11:47→23:59)
[2020-02-18] MEDS ORDERED: POTASSI CL 20 MEQ/50 ML RIDER 20 MEQ/50 ML RTUPB IV ONE (12:30)
--- NOTE | 2020-02-18 12:46 | PDOC PROGRESS REPORT ---
Subjective Progress Note for:: 02/18/20 Subjective:: Patient was seen today sitting up in his bed. He did not complain of SOB at the time of examination, however his lungs did not sound clear. He continues to be NPO with a nasal gastric tube. His urine output is slightly improved with the fluids he was given over the weekend and the dialysis he received on Tuesday. Reason For Visit: SIGMOID VOLVULOUS Physical Exam Vital Signs: Temp Pulse Resp BP Pulse Ox 97.7 F 105 H 16 118/52 L 94 02/18/20 03:10 02/18/20 07:00 02/18/20 03:10 02/18/20 03:10 02/18/20 03:10 Intake & Output 02/17/20 02/18/20 02/19/20 06:59 06:59 06:59 Intake Total 3300 2700 Output Total 1605 2075 Balance 1695 625 Weight 81.2 kg 80.4 kg General appearance: PRESENT: no acute distress, well-developed, well-nourished Mouth exam: PRESENT: dry mucosa, neck supple. ABSENT: moist Neck exam: ABSENT: JVD, tracheal deviation Respiratory exam: PRESENT: crackles - -bases of the lungs. ABSENT: clear to auscultation shazia, rales, rhonchi, wheezes Cardiovascular exam: PRESENT: +S1, +S2 GI/Abdominal exam: PRESENT: distended, tenderness Extremities exam: ABSENT: pedal edema, tenderness, +1 edema, +2 edema Musculoskeletal exam: PRESENT: normal inspection. ABSENT: tenderness Neurological exam: PRESENT: alert, awake, oriented to person, oriented to place, oriented to time, oriented to situation Psychiatric exam: PRESENT: appropriate affect, normal mood Skin exam: PRESENT: dry, intact, warm. ABSENT: cyanosis Results Laboratory Results: 02/18/20 05:57 02/18/20 05:57 02/18/20 02/18/20 02/18/20 05:57 05:57 05:57 WBC 10.8 H RBC 3.62 L Hgb 9.8 L Hct 29.5 L MCV 82 MCH 27.0 MCHC 33.2 RDW 16.8 H Plt Count 302 Seg Neutrophils % Not Reportable Retic Count (auto) 1.28 Sodium 143.9 Potassium 3.3 L Chloride 114 H Carbon Dioxide 21 L Anion Gap 9 BUN 50 H Creatinine 3.20 H Est GFR ( Amer) 23 L Glucose 251 H Calcium 8.0 L Iron TIBC Transferrin Ferritin Vitamin B12 Folate 02/18/20 02/18/20 05:57 05:57 WBC RBC Hgb Hct MCV MCH MCHC RDW Plt Count Seg Neutrophils % Retic Count (auto) Sodium Potassium Chloride Carbon Dioxide Anion Gap BUN Creatinine Est GFR ( Amer) Glucose Calcium Iron < 10.1 L TIBC 138 L Transferrin < 80.00 L Ferritin 294.00 Vitamin B12 615.0 Folate 3.49 Impressions: Abdomen/Pelvis CT 02/10/20 01:59 IMPRESSION: 1. Colonic obstruction with transition point in the sigmoid colon, indeterminate for sigmoid volvulus versus an internal hernia (although likely sigmoid volvulus). Maximum colonic diameter (at the cecum) 8 cm. 2. No perforation or abscess. 3. Other chronic findings as described. Renal Ultrasound 02/15/20 00:00 IMPRESSION: There is increased echogenicity of the kidneys, suggesting medical renal disease. There is a large cyst on the left kidney. KUB X-Ray 02/15/20 07:58 IMPRESSION: 1. The tip of the enteric tube projects within the gastric lumen. 2. Postoperative free intraperitoneal gas. 3. Diffuse gaseous dilatation of the bowel - correlate for postoperative ileus. Chest X-Ray 02/18/20 00:00 IMPRESSION: 1. Bilateral basilar predominant pleural and parenchymal opacities that could represent a combination of pleural fluid and atelectasis. 2. The tip of the enteric tube projects within the gastric lumen. 3. Free intraperitoneal gas - correlate for recent intra-abdominal surgery. Assessment & Plan - Diagnosis (1) Acute kidney injury Is this a current diagnosis for this admission?: Yes Plan: oliguric but trending towards nonoliguric. The patient still appears on the dryside, will look to continue IV fluids. No indication for SECOND FACING BASTER. Will hold off on dialysis today. He appears to be stable. (2) Anemia Is this a current diagnosis for this admission?: Yes Plan: looks to need iron. Will discuss IV injectofer with him (3) Chronic diastolic heart failure Is this a current diagnosis for this admission?: Yes Plan: stable (4) Diabetes mellitus type 2 in nonobese Is this a current diagnosis for this admission?: Yes Plan: controlled (5) Hypertension Qualifiers: Hypertension type: essential hypertension Qualified Code(s): I10 - Essential (primary) hypertension Is this a current diagnosis for this admission?: Yes Plan: controlled (6) Ileus, postoperative Is this a current diagnosis for this admission?: Yes Plan: per surgery (7) Volvulus of sigmoid colon Is this a current diagnosis for this admission?: Yes Plan: per surgery (8) Atelectasis Plan: starting him on a incentive spirometer (9) Aspiration pneumonia Plan: looks to have possible aspirated, recommend antibiotics for coverage (10) Hypokalemia Plan: most likely from gastric loss. Will look to give a 20mEQ k-rider - Notes Notes: case was discussed with Dr. Guajardo.
[2020-02-18] MEDS ORDERED: NORMAL SALINE 1000 ML 1,000 ML IV PRN (12:58)
--- NOTE | 2020-02-18 14:16 | PDOC PROGRESS REPORT ---
Subjective Progress Note for:: 02/18/20 Subjective:: No adverse events overnight. He has had minimal urine output today. He is not complaining of anything but his chest sounds wet. He still getting out a fair amount of drainage through the NG tube. Reason For Visit: SIGMOID VOLVULOUS Physical Exam Vital Signs: Temp Pulse Resp BP Pulse Ox 97.7 F 105 H 16 118/52 L 94 02/18/20 03:10 02/18/20 07:00 02/18/20 03:10 02/18/20 03:10 02/18/20 03:10 Intake & Output 02/17/20 02/18/20 02/19/20 06:59 06:59 06:59 Intake Total 3300 2700 300 Output Total 1605 2075 Balance 1695 625 300 Weight 81.2 kg 80.4 kg General appearance: PRESENT: no acute distress, cooperative, disheveled, other - Appears fatigued Respiratory exam: PRESENT: Rhonchi bilaterally, symmetrical, unlabored. ABSENT: accessory muscle use, chest wall tenderness, tachypnea Cardiovascular exam: PRESENT: irregular rhythm. ABSENT: tachycardia Pulses: PRESENT: normal carotid pulses Vascular exam: PRESENT: normal capillary refill GI/Abdominal exam: PRESENT: hypoactive bowel sounds, soft, other - Diverting ileostomy with a scant amount of fluid in the bag. ABSENT: distended, guarding, rebound, tenderness Extremities exam: PRESENT: Trace pedal and ankle edema ABSENT: clubbing Musculoskeletal exam: PRESENT: normal inspection. ABSENT: deformity Neurological exam: PRESENT: awake, oriented to person, oriented to place, oriented to situation Psychiatric exam: PRESENT: flat affect Skin exam: PRESENT: dry, warm Results Laboratory Results: 02/18/20 05:57 02/18/20 05:57 02/18/20 02/18/20 02/18/20 05:57 05:57 05:57 WBC 10.8 H RBC 3.62 L Hgb 9.8 L Hct 29.5 L MCV 82 MCH 27.0 MCHC 33.2 RDW 16.8 H Plt Count 302 Seg Neutrophils % Not Reportable Retic Count (auto) 1.28 Sodium 143.9 Potassium 3.3 L Chloride 114 H Carbon Dioxide 21 L Anion Gap 9 BUN 50 H Creatinine 3.20 H Est GFR ( Amer) 23 L Glucose 251 H Calcium 8.0 L Iron TIBC Transferrin Ferritin Vitamin B12 Folate 02/18/20 02/18/20 05:57 05:57 WBC RBC Hgb Hct MCV MCH MCHC RDW Plt Count Seg Neutrophils % Retic Count (auto) Sodium Potassium Chloride Carbon Dioxide Anion Gap BUN Creatinine Est GFR ( Amer) Glucose Calcium Iron < 10.1 L TIBC 138 L Transferrin < 80.00 L Ferritin 294.00 Vitamin B12 615.0 Folate 3.49 Impressions: Abdomen/Pelvis CT 02/10/20 01:59 IMPRESSION: 1. Colonic obstruction with transition point in the sigmoid colon, indeterminate for sigmoid volvulus versus an internal hernia (although likely sigmoid volvulus). Maximum colonic diameter (at the cecum) 8 cm. 2. No perforation or abscess. 3. Other chronic findings as described. Renal Ultrasound 02/15/20 00:00 IMPRESSION: There is increased echogenicity of the kidneys, suggesting medical renal disease. There is a large cyst on the left kidney. KUB X-Ray 02/15/20 07:58 IMPRESSION: 1. The tip of the enteric tube projects within the gastric lumen. 2. Postoperative free intraperitoneal gas. 3. Diffuse gaseous dilatation of the bowel - correlate for postoperative ileus. Chest X-Ray 02/18/20 00:00 IMPRESSION: 1. Bilateral basilar predominant pleural and parenchymal opacities that could represent a combination of pleural fluid and atelectasis. 2. The tip of the enteric tube projects within the gastric lumen. 3. Free intraperitoneal gas - correlate for recent intra-abdominal surgery. Assessment and Plan - Diagnosis (1) Acute kidney injury Is this a current diagnosis for this admission?: Yes Plan: Creatinine has not substantially improved. He got dialysis on Tuesday. He has been getting IV fluids since then. Nephrology has decided not to do dialysis today. He is actually starting to look volume overloaded at this point. (2) Chronic diastolic heart failure Is this a current diagnosis for this admission?: Yes Plan: He is starting to look a little volume overloaded. Nephrology is recommending to continue his fluids for now. We will have to watch him closely to see if we need to discontinue his fluids and give him oxygen support, because he is a very congested chest exam. (3) Diabetes mellitus type 2 in nonobese Is this a current diagnosis for this admission?: Yes Plan: Blood sugars are somewhat elevated, will monitor and adjust coverage accordingly. Hesitant to increase his insulin while he is n.p.o. for fear of hypoglycemia. (4) Hypertension Qualifiers: Hypertension type: essential hypertension Qualified Code(s): I10 - Essential (primary) hypertension Is this a current diagnosis for this admission?: Yes Plan: Good control (5) Ileus, postoperative Is this a current diagnosis for this admission?: Yes Plan: NG tube continues to have a fair amount of output. Management per surgery. (6) Volvulus of sigmoid colon Is this a current diagnosis for this admission?: Yes Plan: Status post surgical repair with placement of diverting ileostomy - Plan Summary Summary: Thank you for allowing us to take care of this very pleasant 79-year-old surgical patient. We will continue to follow during his hospitalization and make adjustments in his medications based on the patient's clinical status, Accu-checks, vital signs and laboratory studies. - Time Time Spent with patient: 25-34 minutes
--- NOTE | 2020-02-18 15:03 | PDOC PROGRESS REPORT ---
Subjective Progress Note for:: 02/18/20 Subjective:: was up ambulating Reason For Visit: SIGMOID VOLVULOUS Physical Exam Vital Signs: Temp Pulse Resp BP Pulse Ox 98.2 F 66 25 H 117/55 L 94 02/18/20 12:20 02/18/20 12:20 02/18/20 12:20 02/18/20 12:20 02/18/20 12:20 Intake & Output 02/17/20 02/18/20 02/19/20 06:59 06:59 06:59 Intake Total 3300 2700 300 Output Total 1605 2075 Balance 1695 625 300 Weight 81.2 kg 80.4 kg General appearance: PRESENT: no acute distress Head exam: PRESENT: normocephalic Eye exam: PRESENT: EOMI Ear exam: PRESENT: normal external ear exam Mouth exam: PRESENT: moist Teeth exam: PRESENT: poor dentation Neck exam: PRESENT: full ROM Respiratory exam: PRESENT: rhonchi Pulses: PRESENT: normal radial pulses, normal femoral pulses Vascular exam: PRESENT: normal capillary refill Breast: PRESENT: Normal GI/Abdominal exam: PRESENT: diminished bowel sounds, distended Rectal exam: PRESENT: deferred Extremities exam: PRESENT: full ROM Musculoskeletal exam: PRESENT: full ROM Neurological exam: PRESENT: alert, awake, oriented to place Psychiatric exam: PRESENT: appropriate affect Skin exam: PRESENT: dry Results Laboratory Results: 02/18/20 05:57 02/18/20 05:57 02/18/20 02/18/20 02/18/20 05:57 05:57 05:57 WBC 10.8 H RBC 3.62 L Hgb 9.8 L Hct 29.5 L MCV 82 MCH 27.0 MCHC 33.2 RDW 16.8 H Plt Count 302 Seg Neutrophils % Not Reportable Retic Count (auto) 1.28 Sodium 143.9 Potassium 3.3 L Chloride 114 H Carbon Dioxide 21 L Anion Gap 9 BUN 50 H Creatinine 3.20 H Est GFR ( Amer) 23 L Glucose 251 H Calcium 8.0 L Iron TIBC Transferrin Ferritin Vitamin B12 Folate 02/18/20 02/18/20 05:57 05:57 WBC RBC Hgb Hct MCV MCH MCHC RDW Plt Count Seg Neutrophils % Retic Count (auto) Sodium Potassium Chloride Carbon Dioxide Anion Gap BUN Creatinine Est GFR ( Amer) Glucose Calcium Iron < 10.1 L TIBC 138 L Transferrin < 80.00 L Ferritin 294.00 Vitamin B12 615.0 Folate 3.49 Impressions: Abdomen/Pelvis CT 02/10/20 01:59 IMPRESSION: 1. Colonic obstruction with transition point in the sigmoid colon, indeterminate for sigmoid volvulus versus an internal hernia (although likely sigmoid volvulus). Maximum colonic diameter (at the cecum) 8 cm. 2. No perforation or abscess. 3. Other chronic findings as described. Renal Ultrasound 02/15/20 00:00 IMPRESSION: There is increased echogenicity of the kidneys, suggesting medical renal disease. There is a large cyst on the left kidney. KUB X-Ray 02/15/20 07:58 IMPRESSION: 1. The tip of the enteric tube projects within the gastric lumen. 2. Postoperative free intraperitoneal gas. 3. Diffuse gaseous dilatation of the bowel - correlate for postoperative ileus. Chest X-Ray 02/18/20 00:00 IMPRESSION: 1. Bilateral basilar predominant pleural and parenchymal opacities that could represent a combination of pleural fluid and atelectasis. 2. The tip of the enteric tube projects within the gastric lumen. 3. Free intraperitoneal gas - correlate for recent intra-abdominal surgery. Assessment & Plan - Plan Summary Plan Summary: s/p sigmoid colectomy for volvolus and temp ileostomy still without retiurn of bowel function awaiting retiurn of bf.
[2020-02-18] MEDS: TRAZODONE HCL 50 MG TABLET PO SCH (21:31)
[2020-02-18] MEDS: ATORVASTATIN CALCIUM 40 MG TABLET PO SCH (21:32)
[2020-02-18] MEDS: LATANOPROST 0.005% OPH SOLN 2.5 ML OU SCH (23:59)
[2020-02-19] MEDS: INSULIN LISPRO 100 UNIT/ML 3 ML VIAL SUBCUT SCH ×4 (00:10→15:50)
[2020-02-19] MEDS: NORMAL SALINE 1000 ML 1,000 ML IV PRN (03:50)
[2020-02-19] MEDS: METOPROLOL TARTRATE PF/INJ 5 MG/5 ML SDV IV SCH ×4 (05:40→18:34)
[2020-02-19 06:47] LABS: ANION GAP 9 (5-19); BLOOD UREA NITROGEN 62 mg/dL (7-20); CALCIUM 7.9 mg/dL (8.4-10.2); CARBON DIOXIDE 20 mmol/L (22-30); CHLORIDE 117 mmol/L (98-107); GLUCOSE 237 mg/dL (75-110); POTASSIUM 3.5 mmol/L (3.6-5.0)
[2020-02-19 06:58] LABS: MEAN CORPUSCULAR HEMOGLOBIN 27.1 pg (27.0-33.4); MEAN CORPUSCULAR HGB CONC 33.3 g/dL (32.0-36.0); MEAN CORPUSCULAR VOLUME 81 fl (80-97); PLATELET COUNT 311 10^3/uL (150-450); RED BLOOD COUNT 3.69 10^6/uL (4.35-5.55); RED CELL DISTRIBUTION WIDTH 16.6 % (11.5-14.0); WHITE BLOOD COUNT 7.5 10^3/uL (4.0-10.5)
[2020-02-19 07:06] LABS: ABSOLUTE LYMPHOCYTES# (MANUAL) 0.3 10^3/uL (0.5-4.7); BAND NEUTROPHILS % (MANUAL) 2 % (3-5); BASOPHILS % (MANUAL) 0 % (0-2); EOSINOPHILS % (MANUAL) 0 % (0-6); LYMPHOCYTES % (MANUAL) 4 % (13-45); MONOCYTES % (MANUAL) 0 % (3-13); SEGMENTED NEUTROPHILS % (MAN) 94 % (42-78); TOTAL CELLS COUNTED 100
[2020-02-19 07:09] LABS: ANISOCYTOSIS 1+; BURR CELLS 1+; OVALOCYTES SLIGHT; PLATELET COMMENT ADEQUATE; POIKILOCYTOSIS 1+; TOXIC GRANULATION 1+
[2020-02-19 07:11] LABS: TARGET CELLS SLIGHT
[2020-02-19] MEDS: MORPHINE SULFATE 10 MG/ML INJ IV PRN ×2 (07:43→15:46)
--- NOTE | 2020-02-19 08:12 | PDOC PROGRESS REPORT ---
Subjective Progress Note for:: 02/19/20 Subjective:: Appears weak debilitated Reason For Visit: SIGMOID VOLVULOUS Physical Exam Vital Signs: Temp Pulse Resp BP Pulse Ox 97.7 F 110 H 16 113/58 L 92 02/19/20 03:16 02/19/20 07:00 02/19/20 03:16 02/19/20 03:16 02/19/20 03:16 Intake & Output 02/18/20 02/19/20 02/20/20 06:59 06:59 06:59 Intake Total 2699 2009 Output Total 2074 1370 Balance 625 640 Weight 80.4 kg 81.4 kg General appearance: PRESENT: no acute distress Head exam: PRESENT: normocephalic Eye exam: PRESENT: EOMI Ear exam: PRESENT: normal external ear exam Mouth exam: PRESENT: dry mucosa, moist Neck exam: PRESENT: full ROM Respiratory exam: PRESENT: clear to auscultation shazia Cardiovascular exam: PRESENT: RRR Pulses: PRESENT: normal radial pulses, normal femoral pulses Breast: PRESENT: Normal GI/Abdominal exam: PRESENT: diminished bowel sounds, distended, other - Stomach visualized and noted to be patent pink Rectal exam: PRESENT: deferred Gentrourinary exam: PRESENT: indwelling catheter Extremities exam: PRESENT: full ROM Musculoskeletal exam: PRESENT: full ROM Neurological exam: PRESENT: awake, oriented to person Psychiatric exam: PRESENT: appropriate affect Results Laboratory Results: 02/19/20 05:58 02/19/20 05:58 02/18/20 02/18/20 02/18/20 05:57 05:57 05:57 WBC RBC Hgb Hct MCV MCH MCHC RDW Plt Count Seg Neutrophils % Retic Count (auto) 1.28 Sodium Potassium Chloride Carbon Dioxide Anion Gap BUN Creatinine Est GFR ( Amer) Glucose Calcium Iron < 10.1 L TIBC 138 L Transferrin < 80.00 L Ferritin 294.00 Vitamin B12 615.0 Folate 3.49 02/19/20 02/19/20 05:58 05:58 WBC 7.5 RBC 3.69 L Hgb 10.0 L Hct 30.0 L MCV 81 MCH 27.1 MCHC 33.3 RDW 16.6 H Plt Count 311 Seg Neutrophils % Not Reportable Retic Count (auto) Sodium 145.9 H Potassium 3.5 L Chloride 117 H Carbon Dioxide 20 L Anion Gap 9 BUN 62 H Creatinine 3.57 H Est GFR ( Amer) 20 L Glucose 237 H Calcium 7.9 L Iron TIBC Transferrin Ferritin Vitamin B12 Folate Impressions: Abdomen/Pelvis CT 02/10/20 01:59 IMPRESSION: 1. Colonic obstruction with transition point in the sigmoid colon, indeterminate for sigmoid volvulus versus an internal hernia (although likely sigmoid volvulus). Maximum colonic diameter (at the cecum) 8 cm. 2. No perforation or abscess. 3. Other chronic findings as described. Renal Ultrasound 02/15/20 00:00 IMPRESSION: There is increased echogenicity of the kidneys, suggesting medical renal disease. There is a large cyst on the left kidney. KUB X-Ray 02/15/20 07:58 IMPRESSION: 1. The tip of the enteric tube projects within the gastric lumen. 2. Postoperative free intraperitoneal gas. 3. Diffuse gaseous dilatation of the bowel - correlate for postoperative ileus. Chest X-Ray 02/18/20 00:00 IMPRESSION: 1. Bilateral basilar predominant pleural and parenchymal opacities that could represent a combination of pleural fluid and atelectasis. 2. The tip of the enteric tube projects within the gastric lumen. 3. Free intraperitoneal gas - correlate for recent intra-abdominal surgery. Assessment & Plan - Plan Summary Plan Summary: Status post sigmoid colectomy for sigmoid volvulus with coloproctostomy and d istal temporary ileostomy. Patient is developed renal insufficiency and renal failure during the postoperative course and now is on dialysis. He has been n.p.o. for a number of days and requires IV nutrition therefore PICC line will be ordered and started on TPN. Patient's overall condition continues to deteriorate somewhat although his white count remains normal he appears to be generating secondary ileus chronic abdominal distention and renal failure. We will plan on PICC line placement and start him on TPN.
[2020-02-19] MEDS ORDERED: 1/2 NORMAL SALINE 1,000 ML IV PRN (08:14)
[2020-02-19] MEDS ORDERED: RINGERS SOLUTION,LACTATED 1,000 ML IV PRN (09:54)
[2020-02-19] MEDS ORDERED: POTASSI CL 20 MEQ/50 ML RIDER 20 MEQ/50 ML RTUPB IV SCH (10:00)
[2020-02-19] MEDS: POTASSI CL 20 MEQ/50 ML RIDER 20 MEQ/50 ML RTUPB IV SCH ×3 (12:24→21:10)
--- NOTE | 2020-02-19 12:38 | PDOC PROGRESS REPORT ---
Subjective Progress Note for:: 02/19/20 Subjective:: Patient was seen today laying in his bed. He mentally was not as sharp as yesterday. According to the nurse in charge of his care he was just given morphine because he just had a clot removed from his ileostomy opening. He continues to not produce much urine. Reason For Visit: SIGMOID VOLVULOUS Physical Exam Vital Signs: Temp Pulse Resp BP Pulse Ox 98.4 F 68 22 H 118/49 L 95 02/19/20 08:15 02/19/20 08:15 02/19/20 08:15 02/19/20 08:15 02/19/20 08:15 Intake & Output 02/18/20 02/19/20 02/20/20 06:59 06:59 06:59 Intake Total 2700 2009 Output Total 2074 1370 Balance 625 640 Weight 80.4 kg 81.4 kg General appearance: PRESENT: no acute distress, well-developed, well-nourished Mouth exam: PRESENT: dry mucosa, neck supple Neck exam: ABSENT: JVD, tracheal deviation Respiratory exam: PRESENT: crackles - -decreased from yesterday. ABSENT: clear to auscultation shazia, rales, rhonchi, wheezes Cardiovascular exam: PRESENT: +S1, +S2 GI/Abdominal exam: PRESENT: distended, tenderness Extremities exam: PRESENT: other - -trace+ edema. ABSENT: +1 edema, +2 edema Musculoskeletal exam: PRESENT: normal inspection. ABSENT: tenderness Neurological exam: PRESENT: alert, awake, oriented to person, oriented to place, oriented to time, other - -his speech was slowed and his cognition was slowed compared to yesterday Skin exam: PRESENT: dry, intact, warm. ABSENT: cyanosis Results Laboratory Results: 02/19/20 05:58 02/19/20 05:58 02/19/20 02/19/20 05:58 05:58 WBC 7.5 RBC 3.69 L Hgb 10.0 L Hct 30.0 L MCV 81 MCH 27.1 MCHC 33.3 RDW 16.6 H Plt Count 311 Seg Neutrophils % Not Reportable Sodium 145.9 H Potassium 3.5 L Chloride 117 H Carbon Dioxide 20 L Anion Gap 9 BUN 62 H Creatinine 3.57 H Est GFR ( Amer) 20 L Glucose 237 H Calcium 7.9 L Impressions: Abdomen/Pelvis CT 02/10/20 01:59 IMPRESSION: 1. Colonic obstruction with transition point in the sigmoid colon, indeterminate for sigmoid volvulus versus an internal hernia (although likely sigmoid volvulus). Maximum colonic diameter (at the cecum) 8 cm. 2. No perforation or abscess. 3. Other chronic findings as described. Renal Ultrasound 02/15/20 00:00 IMPRESSION: There is increased echogenicity of the kidneys, suggesting medical renal disease. There is a large cyst on the left kidney. KUB X-Ray 02/15/20 07:58 IMPRESSION: 1. The tip of the enteric tube projects within the gastric lumen. 2. Postoperative free intraperitoneal gas. 3. Diffuse gaseous dilatation of the bowel - correlate for postoperative ileus. Chest X-Ray 02/18/20 00:00 IMPRESSION: 1. Bilateral basilar predominant pleural and parenchymal opacities that could represent a combination of pleural fluid and atelectasis. 2. The tip of the enteric tube projects within the gastric lumen. 3. Free intraperitoneal gas - correlate for recent intra-abdominal surgery. Assessment & Plan - Diagnosis (1) Acute kidney injury Is this a current diagnosis for this admission?: Yes Plan: oliguric, looks to still be intervascularly dry. At this point the small amount of edema he I believe is from 3rd spacing from mostly likely a low albumin. Will look to add an albumin level. Will switch to LR and increase it to 125mL/h until he can be placed on TPN. If urine output does not increase than he will be receiving dialysis tomorrow. (2) Anemia Is this a current diagnosis for this admission?: Yes Plan: Needs iron (3) Chronic diastolic heart failure Is this a current diagnosis for this admission?: Yes Plan: stable (4) Diabetes mellitus type 2 in nonobese Is this a current diagnosis for this admission?: Yes Plan: controlled (5) Hypertension Qualifiers: Hypertension type: essential hypertension Qualified Code(s): I10 - Essential (primary) hypertension Is this a current diagnosis for this admission?: Yes Plan: controlled, looks to actually be going down. Possibly from third spacing. (6) Ileus, postoperative Is this a current diagnosis for this admission?: Yes Plan: per surgery (7) Volvulus of sigmoid colon Is this a current diagnosis for this admission?: Yes Plan: per surgery (8) Atelectasis Plan: on a incentive spirometer (10) Hypokalemia Plan: Placing on k rider 20mEQ TID (11) Malnutrition Plan: Patient is needing TPN, Dr. Guajardo spoke with the patient's nurse and hospitalist in charge of his care. Patient has a trialysis catheter so the 3rd port can be used for the TPN. PICC line is not recommend for a patient who is on or near dialysis. - Notes Notes: discussed case with Dr. Guajardo
[2020-02-19] MEDS ORDERED: AMINO ACIDS 5 %/DEXTROSE 20 % 1,000 ML IV PRN (14:00)
[2020-02-19] MEDS ORDERED: DEXTROSE 10%-WATER 1,000 ML IV PRN (14:00)
--- NOTE | 2020-02-19 15:43 | PDOC PROGRESS REPORT ---
Subjective Progress Note for:: 02/19/20 Subjective:: No adverse events overnight. Apparently he only had about 75 mL's out yesterday, but 400 have been documented. He is +9 L over the past 4-5 days. He still having some output through his NG tube but it is less bilious now and less copious. Heart rate has been elevated but not dramatically so. Reason For Visit: SIGMOID VOLVULOUS Physical Exam Vital Signs: Temp Pulse Resp BP Pulse Ox 98.4 F 68 22 H 118/49 L 95 02/19/20 08:15 02/19/20 08:15 02/19/20 08:15 02/19/20 08:15 02/19/20 08:15 Intake & Output 02/18/20 02/19/20 02/20/20 06:59 06:59 06:59 Intake Total 2700 2009 Output Total 2074 1370 Balance 625 640 Weight 80.4 kg 81.4 kg General appearance: PRESENT: no acute distress, cooperative, disheveled, other - Appears fatigued Respiratory exam: PRESENT: Rhonchi bilaterally, symmetrical, unlabored. ABSENT: accessory muscle use, chest wall tenderness, tachypnea Cardiovascular exam: PRESENT: irregular rhythm. ABSENT: tachycardia Pulses: PRESENT: normal carotid pulses Vascular exam: PRESENT: normal capillary refill GI/Abdominal exam: PRESENT: hypoactive bowel sounds, soft, other - Diverting ileostomy with a scant amount of fluid in the bag. ABSENT: distended, guarding, rebound, tenderness Extremities exam: PRESENT: Trace pedal and ankle edema ABSENT: clubbing Musculoskeletal exam: PRESENT: normal inspection. ABSENT: deformity Neurological exam: PRESENT: awake, oriented to person, oriented to place, oriented to situation Psychiatric exam: PRESENT: flat affect Skin exam: PRESENT: dry, warm Results Laboratory Results: 02/19/20 05:58 02/19/20 05:58 02/19/20 02/19/20 02/19/20 05:58 05:58 05:58 WBC 7.5 RBC 3.69 L Hgb 10.0 L Hct 30.0 L MCV 81 MCH 27.1 MCHC 33.3 RDW 16.6 H Plt Count 311 Seg Neutrophils % Not Reportable Sodium 145.9 H Potassium 3.5 L Chloride 117 H Carbon Dioxide 20 L Anion Gap 9 BUN 62 H Creatinine 3.57 H Est GFR ( Amer) 20 L Glucose 237 H Calcium 7.9 L Albumin 1.7 L Impressions: Abdomen/Pelvis CT 02/10/20 01:59 IMPRESSION: 1. Colonic obstruction with transition point in the sigmoid colon, indeterminate for sigmoid volvulus versus an internal hernia (although likely sigmoid volvulus). Maximum colonic diameter (at the cecum) 8 cm. 2. No perforation or abscess. 3. Other chronic findings as described. Renal Ultrasound 02/15/20 00:00 IMPRESSION: There is increased echogenicity of the kidneys, suggesting medical renal disease. There is a large cyst on the left kidney. KUB X-Ray 02/15/20 07:58 IMPRESSION: 1. The tip of the enteric tube projects within the gastric lumen. 2. Postoperative free intraperitoneal gas. 3. Diffuse gaseous dilatation of the bowel - correlate for postoperative ileus. Chest X-Ray 02/18/20 00:00 IMPRESSION: 1. Bilateral basilar predominant pleural and parenchymal opacities that could represent a combination of pleural fluid and atelectasis. 2. The tip of the enteric tube projects within the gastric lumen. 3. Free intraperitoneal gas - correlate for recent intra-abdominal surgery. Assessment and Plan - Diagnosis (1) Acute kidney injury Is this a current diagnosis for this admission?: Yes Plan: Despite the fact that he is in such positive fluid balance, his creatinine has gotten worse. He still on some fluids but he appears overloaded. Possible dialysis tomorrow. (2) Chronic diastolic heart failure Is this a current diagnosis for this admission?: Yes Plan: He is now showing some signs of fluid overload. Urine output is minimal. Anticipate dialysis tomorrow. (3) Diabetes mellitus type 2 in nonobese Is this a current diagnosis for this admission?: Yes Plan: Blood sugars are somewhat elevated, will monitor and adjust coverage accordingly. Hesitant to increase his insulin while he is n.p.o. for fear of hypoglycemia. (4) Hypertension Qualifiers: Hypertension type: essential hypertension Qualified Code(s): I10 - Essential (primary) hypertension Is this a current diagnosis for this admission?: Yes Plan: Good control (5) Ileus, postoperative Is this a current diagnosis for this admission?: Yes Plan: NG tube continues to have a fair amount of output. Management per surgery. TPN has been ordered. (6) Volvulus of sigmoid colon Is this a current diagnosis for this admission?: Yes Plan: Status post surgical repair with placement of diverting ileostomy - Plan Summary Summary: Thank you for allowing us to take care of this very pleasant 79-year-old surgical patient. We will continue to follow during his hospitalization and make adjustments in his medications based on the patient's clinical status, Accu-checks, vital signs and laboratory studies. - Time Time Spent with patient: 25-34 minutes
[2020-02-19] MEDS: DORZOLAMIDE HCL 2% OPH SOLN 10 ML OU SCH ×2 (15:49→23:00)
--- NOTE | 2020-02-19 18:03 | RADIOLOGY REPORT (SQ) ---
EXAM DESCRIPTION: CHEST SINGLE VIEW IMAGES COMPLETED DATE/TIME: 02/19/2020 4:13 pm REASON FOR STUDY: increased shortness of breath. COMPARISON: 02/18/2020 EXAM PARAMETERS: NUMBER OF VIEWS: One view. TECHNIQUE: Single frontal radiographic view of the chest acquired. RADIATION DOSE: NA LIMITATIONS: None. FINDINGS: LUNGS AND PLEURA: Bibasilar atelectasis or consolidation. Small bilateral pleural effusio ns. No pneumothorax. MEDIASTINUM AND HILAR STRUCTURES: No masses. Contour normal. HEART AND VASCULAR STRUCTURES: Heart normal in size. Normal vasculature. BONES: No acute findings. HARDWARE: Esophagogastric tube tip and side-hole are below the diaphragm within the stomach. Gaseous distention of the colon is again demonstrated. Cannot entirely exclude pneumoperitoneum under the r ight hemidiaphragm. OTHER: No other significant finding. IMPRESSION: 1. Bibasilar atelectasis and probable small small pleural effusions, stable from previous. 2. Gaseous distention of the colon similar in appearance to previous examination. Cannot entirely ex clude pneumoperitoneum at the right hemidiaphragm. Clinical correlation for recent surgical procedur e recommended. CT of the abdomen and pelvis may be helpful as clinically indicated. TECHNICAL DOCUMENTATION: JOB ID: [id number] 2010 [employer]- All Rights Reserved Reading location - IP/workstation name: [email or web address]
[2020-02-19] MEDS: LATANOPROST 0.005% OPH SOLN 2.5 ML OU SCH (23:00)
[2020-02-20] MEDS: TRAZODONE HCL 50 MG TABLET PO SCH ×2 (00:12→21:49)
[2020-02-20] MEDS: ATORVASTATIN CALCIUM 40 MG TABLET PO SCH ×2 (00:12→21:49)
[2020-02-20] MEDS: METOPROLOL TARTRATE PF/INJ 5 MG/5 ML SDV IV SCH ×4 (00:57→17:37)
[2020-02-20] MEDS: INSULIN LISPRO 100 UNIT/ML 3 ML VIAL SUBCUT SCH ×6 (01:01→19:50)
[2020-02-20] MEDS: MORPHINE SULFATE 10 MG/ML INJ IV PRN ×2 (06:28→12:45)
[2020-02-20 07:05] LABS: HEMATOCRIT 30.4 % (37.9-51.0); HEMOGLOBIN 9.9 g/dL (13.5-17.0); MEAN CORPUSCULAR HEMOGLOBIN 26.8 pg (27.0-33.4); MEAN CORPUSCULAR HGB CONC 32.6 g/dL (32.0-36.0); MEAN CORPUSCULAR VOLUME 82 fl (80-97); PLATELET COUNT 305 10^3/uL (150-450); RED CELL DISTRIBUTION WIDTH 17.1 % (11.5-14.0); WHITE BLOOD COUNT 10.1 10^3/uL (4.0-10.5)
[2020-02-20 07:10] LABS: ALBUMIN 1.9 g/dL (3.5-5.0); ALKALINE PHOSPHATASE 61 U/L (38-126); ANION GAP 9 (5-19); ASPARTATE AMINO TRANSFERASE 23 U/L (17-59); BILIRUBIN,DIRECT 0.8 mg/dL (0.0-0.4); BILIRUBIN,TOTAL 1.6 mg/dL (0.2-1.3); BLOOD UREA NITROGEN 81 mg/dL (7-20); CALCIUM 8.2 mg/dL (8.4-10.2); CARBON DIOXIDE 20 mmol/L (22-30); CHLORIDE 117 mmol/L (98-107); GLUCOSE 387 mg/dL (75-110); POTASSIUM 4.2 mmol/L (3.6-5.0); TOTAL PROTEIN 4.8 g/dL (6.3-8.2)
[2020-02-20 07:24] LABS: ABSOLUTE MONOCYTES # (MANUAL) 0.8 10^3/uL (0.1-1.4); BAND NEUTROPHILS % (MANUAL) 2 % (3-5); BASOPHILS % (MANUAL) 0 % (0-2); EOSINOPHILS % (MANUAL) 0 % (0-6); LYMPHOCYTES % (MANUAL) 10 % (13-45); MONOCYTES % (MANUAL) 8 % (3-13); SEGMENTED NEUTROPHILS % (MAN) 80 % (42-78); TOTAL CELLS COUNTED 100
[2020-02-20] MEDS ORDERED: HEPARIN SOD (PORCINE) 1,000 UNIT/ML 10 ML VIAL IV PRN (07:25)
[2020-02-20] MEDS ORDERED: EPOETIN ALFA-EPBX 10,000 UNIT in SYRINGE, DISPOSABLE, 1 EACH IV PRN (07:25)
[2020-02-20 07:26] LABS: ANISOCYTOSIS 1+; HYPOCHROMASIA SLIGHT; OVALOCYTES SLIGHT; TEAR DROP CELLS SLIGHT
[2020-02-20 07:27] LABS: PLATELET COMMENT ADEQUATE
[2020-02-20] MEDS ORDERED: DEXTROSE 50%-WATER 25 GM/50 ML DISP.SYRIN IV PRN ×2 (08:53)
[2020-02-20] MEDS ORDERED: GLUCAGON,HUMAN RECOMB 1 MG INJ IM PRN (08:53)
[2020-02-20] MEDS ORDERED: DEXTROSE 40% GEL 15 GM TUBE PO PRN ×2 (08:53)
--- NOTE | 2020-02-20 11:09 | PDOC PROGRESS REPORT ---
Subjective Progress Note for:: 02/20/20 Reason For Visit: Patient currently being seen while undergoing dialysis. He looks quite weak and debilitated. He has a delayed response to questions. However he denies any history of chest pain or shortness of breath. He has some abdominal pains. Still has got NG suction. His urine output has dropped to around 200 cc/min. Labs and medications were reviewed that shows progressive rising creatinine. He has been begun on TPN. Dialysis orders were reviewed with the treating dialysis nurse. Physical Exam Vital Signs: Temp Pulse Resp BP Pulse Ox 97.6 F 109 H 28 H 136/53 H 99 02/19/20 23:13 02/20/20 07:00 02/20/20 03:57 02/20/20 03:57 02/19/20 23:13 Intake & Output 02/19/20 02/20/20 02/21/20 06:59 06:59 06:59 Intake Total 2009 150 Output Total 1370 250 Balance 640 -100 Weight 81.4 kg 85.3 kg General appearance: PRESENT: cooperative, disheveled Exam: Looks rather moribund with delayed response to questions. Respiratory exam: PRESENT: clear to auscultation shazia, decreased breath sounds. ABSENT: crackles Cardiovascular exam: PRESENT: +S1, +S2 GI/Abdominal exam: PRESENT: distended, firm - Mild., tenderness Extremities exam: ABSENT: pedal edema Neurological exam: PRESENT: altered Skin exam: ABSENT: cyanosis, erythema, mottled, rash Results Laboratory Results: 02/20/20 06:10 02/20/20 06:10 02/19/20 02/20/20 02/20/20 05:58 06:10 06:10 WBC 10.1 RBC 3.70 L Hgb 9.9 L Hct 30.4 L MCV 82 MCH 26.8 L MCHC 32.6 RDW 17.1 H Plt Count 305 Seg Neutrophils % Not Reportable Sodium 145.7 H Potassium 4.2 Chloride 117 H Carbon Dioxide 20 L Anion Gap 9 BUN 81 H Creatinine 4.05 H Est GFR ( Amer) 17 L Glucose 387 H Calcium 8.2 L Total Bilirubin 1.6 H AST 23 Alkaline Phosphatase 61 Total Protein 4.8 L Albumin 1.7 L 1.9 L Impressions: Abdomen/Pelvis CT 02/10/20 01:59 IMPRESSION: 1. Colonic obstruction with transition point in the sigmoid colon, indeterminate for sigmoid volvulus versus an internal hernia (although likely sigmoid volvulus). Maximum colonic diameter (at the cecum) 8 cm. 2. No perforation or abscess. 3. Other chronic findings as described. Renal Ultrasound 02/15/20 00:00 IMPRESSION: There is increased echogenicity of the kidneys, suggesting medical renal disease. There is a large cyst on the left kidney. KUB X-Ray 02/15/20 07:58 IMPRESSION: 1. The tip of the enteric tube projects within the gastric lumen. 2. Postoperative free intraperitoneal gas. 3. Diffuse gaseous dilatation of the bowel - correlate for postoperative ileus. Chest X-Ray 02/19/20 00:00 IMPRESSION: 1. Bibasilar atelectasis and probable small small pleural effusions, stable from previous. 2. Gaseous distention of the colon similar in appearance to previous examination. Cannot entirely exclude pneumoperitoneum at the right hemidiaphragm. Clinical correlation for recent surgical procedure recommended. CT of the abdomen and pelvis may be helpful as clinically indicated. Assessment & Plan - Diagnosis (1) Acute kidney injury Is this a current diagnosis for this admission?: Yes Plan: Oliguric. Patient showing early features of possible uremia along with dropping fluid/urine output. Will put him back on hemodialysis through his temporary femoral dialysis catheter. Patient currently undergoing dialysis. Looks comfortable though he looks rather moribund. Vital signs are stable. Plan to remove 1-2 L as tolerated. Dialysis orders were reviewed with the treating dialysis nurse. At this point I would also like to make a note that please do not place any PICC lines in his upper extremities for vascular access. If he needs to have a vascular axis he should have either IJ PICC for long-term use or a temporary femoral approach. Since his femoral dialysis catheter has the the third port it can be used for peripheral access. (2) Aspiration pneumonia Plan: Clinically when I saw him couple of days ago he had features/signs suggestive of a right-sided aspiration pneumonia. Chest x-ray was also possibly suggestive of it. Management as per hospitalist. (3) Diabetes mellitus type 2 in nonobese Is this a current diagnosis for this admission?: Yes Plan: As per hospitalist. (4) Hypertension Qualifiers: Hypertension type: essential hypertension Qualified Code(s): I10 - Essential (primary) hypertension Is this a current diagnosis for this admission?: Yes Plan: Currently stable. (5) Hypokalemia Plan: Currently stable with replacements. Hopefully this can also help correct his postop ileus. (6) Ileus, postoperative Is this a current diagnosis for this admission?: Yes Plan: As Per surgery (7) Volvulus of sigmoid colon Is this a current diagnosis for this admission?: Yes Plan: Status post surgery.
--- NOTE | 2020-02-20 11:51 | PDOC PROGRESS REPORT ---
Subjective Progress Note for:: 02/20/20 Subjective:: Patient fairly somnolent difficult to obtain a history from Reason For Visit: SIGMOID VOLVULOUS Physical Exam Vital Signs: Temp Pulse Resp BP Pulse Ox 97.6 F 109 H 28 H 136/53 H 99 02/19/20 23:13 02/20/20 07:00 02/20/20 03:57 02/20/20 03:57 02/19/20 23:13 Intake & Output 02/19/20 02/20/20 02/21/20 06:59 06:59 06:59 Intake Total 2009 150 Output Total 0 250 Balance 640 -100 Weight 81.4 kg 85.3 kg General appearance: PRESENT: mild distress Head exam: PRESENT: normocephalic Eye exam: PRESENT: EOMI Ear exam: PRESENT: normal external ear exam Mouth exam: PRESENT: dry mucosa - ng in place Teeth exam: PRESENT: poor dentation Neck exam: PRESENT: full ROM Respiratory exam: PRESENT: crackles, decreased breath sounds, stridor Cardiovascular exam: PRESENT: RRR Pulses: PRESENT: normal dorsalis pedis pul Vascular exam: PRESENT: normal capillary refill Breast: PRESENT: Dimpling GI/Abdominal exam: PRESENT: ascites, diminished bowel sounds, distended Rectal exam: PRESENT: deferred Gentrourinary exam: PRESENT: indwelling catheter Extremities exam: PRESENT: +2 edema Neurological exam: PRESENT: altered, awake Psychiatric exam: PRESENT: depressed Skin exam: PRESENT: dry Results Laboratory Results: 02/20/20 06:10 02/20/20 06:10 02/19/20 02/20/20 02/20/20 05:58 06:10 06:10 WBC 10.1 RBC 3.70 L Hgb 9.9 L Hct 30.4 L MCV 82 MCH 26.8 L MCHC 32.6 RDW 17.1 H Plt Count 305 Seg Neutrophils % Not Reportable Sodium 145.7 H Potassium 4.2 Chloride 117 H Carbon Dioxide 20 L Anion Gap 9 BUN 81 H Creatinine 4.05 H Est GFR ( Amer) 17 L Glucose 387 H Calcium 8.2 L Total Bilirubin 1.6 H AST 23 Alkaline Phosphatase 61 Total Protein 4.8 L Albumin 1.7 L 1.9 L Impressions: Abdomen/Pelvis CT 02/10/20 01:59 IMPRESSION: 1. Colonic obstruction with transition point in the sigmoid colon, indeterminate for sigmoid volvulus versus an internal hernia (although likely sigmoid volvulus). Maximum colonic diameter (at the cecum) 8 cm. 2. No perforation or abscess. 3. Other chronic findings as described. Renal Ultrasound 02/15/20 00:00 IMPRESSION: There is increased echogenicity of the kidneys, suggesting medical renal disease. There is a large cyst on the left kidney. KUB X-Ray 02/15/20 07:58 IMPRESSION: 1. The tip of the enteric tube projects within the gastric lumen. 2. Postoperative free intraperitoneal gas. 3. Diffuse gaseous dilatation of the bowel - correlate for postoperative ileus. Chest X-Ray 02/19/20 00:00 IMPRESSION: 1. Bibasilar atelectasis and probable small small pleural effusions, stable from previous. 2. Gaseous distention of the colon similar in appearance to previous examination. Cannot entirely exclude pneumoperitoneum at the right hemidiaphragm. Clinical correlation for recent surgical procedure recommended. CT of the abdomen and pelvis may be helpful as clinically indicated. Assessment & Plan - Plan Summary Plan Summary: Patient's overall status continues to deteriorate his creatinine is now climbed up to 4 and has total body anasarca with draining ascites he has no return of bowel function is yet NG tube still has high output. His mental status is deteriorated and he is fairly somnolent. Although his white count remains normal his potassium is normal his creatinine has risen. I had a long discussion with the patient's children today both his daughter and his son and explained to them that his prognosis is grave. I explained that he is in need of dialysis at this point and the family is requesting no further dialysis and comfort measures only. We will comply with those requests and keep these patient comfortable and suspect that he will in the next few days.
[2020-02-20] MEDS: DORZOLAMIDE HCL 2% OPH SOLN 10 ML OU SCH ×2 (12:51→21:50)
[2020-02-20] MEDS ORDERED: MORPHINE SULFATE 10 MG/ML INJ ONE (14:20)
[2020-02-20] MEDS ORDERED: MORPHINE SULFATE 10 MG/ML INJ IV PRN ×2 (14:23→14:30)
--- NOTE | 2020-02-20 17:40 | PDOC PROGRESS REPORT ---
Subjective Progress Note for:: 02/20/20 Subjective:: He was placed on BiPAP last night because his respiratory status worsened. He was sounding more and more congested. When he went to dialysis this morning it looks like his catheter stopped flushing and they only got about 900 mL's of fluid off. Dr. Witt called to talk to his family and went over the situation with them and they decided to make him comfort measures only. Reason For Visit: SIGMOID VOLVULOUS Physical Exam Vital Signs: Temp Pulse Resp BP Pulse Ox 97.6 F 116 H 28 H 136/53 H 99 02/19/20 23:13 02/20/20 14:00 02/20/20 03:57 02/20/20 03:57 02/19/20 23:13 Intake & Output 02/19/20 02/20/20 02/21/20 06:59 06:59 06:59 Intake Total 2009 150 Output Total 1370 250 900 Balance 640 -100 -900 Weight 81.4 kg 85.3 kg General appearance: PRESENT: Severe distress, minimally responsive, disheveled, other - Appears fatigued Respiratory exam: PRESENT: Rales and rhonchi bilaterally, symmetrical, labored, tachypnea. ABSENT: accessory muscle use, chest wall tenderness Cardiovascular exam: PRESENT: irregular rhythm, tachycardia Pulses: PRESENT: normal carotid pulses Vascular exam: PRESENT: normal capillary refill GI/Abdominal exam: PRESENT: hypoactive bowel sounds, soft, other - Diverting ileostomy with a scant amount of fluid in the bag. ABSENT: distended, guarding, rebound, tenderness Extremities exam: PRESENT: Trace pedal and ankle edema ABSENT: clubbing Musculoskeletal exam: PRESENT: normal inspection. ABSENT: deformity Neurological exam: PRESENT: awake, unresponsive to verbal stimuli Psychiatric exam: PRESENT: flat affect Skin exam: PRESENT: dry, warm Results Laboratory Results: 02/20/20 06:10 02/20/20 06:10 02/20/20 02/20/20 06:10 06:10 WBC 10.1 RBC 3.70 L Hgb 9.9 L Hct 30.4 L MCV 82 MCH 26.8 L MCHC 32.6 RDW 17.1 H Plt Count 305 Seg Neutrophils % Not Reportable Sodium 145.7 H Potassium 4.2 Chloride 117 H Carbon Dioxide 20 L Anion Gap 9 BUN 81 H Creatinine 4.05 H Est GFR ( Amer) 17 L Glucose 387 H Calcium 8.2 L Total Bilirubin 1.6 H AST 23 Alkaline Phosphatase 61 Total Protein 4.8 L Albumin 1.9 L Impressions: Abdomen/Pelvis CT 02/10/20 01:59 IMPRESSION: 1. Colonic obstruction with transition point in the sigmoid colon, indeterminate for sigmoid volvulus versus an internal hernia (although likely sigmoid volvulus). Maximum colonic diameter (at the cecum) 8 cm. 2. No perforation or abscess. 3. Other chronic findings as described. Renal Ultrasound 02/15/20 00:00 IMPRESSION: There is increased echogenicity of the kidneys, suggesting medical renal disease. There is a large cyst on the left kidney. KUB X-Ray 02/15/20 07:58 IMPRESSION: 1. The tip of the enteric tube projects within the gastric lumen. 2. Postoperative free intraperitoneal gas. 3. Diffuse gaseous dilatation of the bowel - correlate for postoperative ileus. Chest X-Ray 02/19/20 00:00 IMPRESSION: 1. Bibasilar atelectasis and probable small small pleural effusions, stable from previous. 2. Gaseous distention of the colon similar in appearance to previous examination. Cannot entirely exclude pneumoperitoneum at the right hemidiaphragm. Clinical correlation for recent surgical procedure recommended. CT of the abdomen and pelvis may be helpful as clinically indicated. Assessment and Plan - Diagnosis (1) Acute kidney injury Is this a current diagnosis for this admission?: Yes Plan: His dialysis catheter failed, given how grave his situation was, his family elected to make him comfort measures only. (2) Chronic diastolic heart failure Is this a current diagnosis for this admission?: Yes Plan: Now comfort measures only (3) Diabetes mellitus type 2 in nonobese Is this a current diagnosis for this admission?: Yes Plan: Comfort measures only. Stopping Accu-Cheks. (4) Hypertension Qualifiers: Hypertension type: essential hypertension Qualified Code(s): I10 - Essential (primary) hypertension Is this a current diagnosis for this admission?: Yes Plan: Comfort measures only (5) Ileus, postoperative Is this a current diagnosis for this admission?: Yes Plan: Now comfort measures only (6) Volvulus of sigmoid colon Is this a current diagnosis for this admission?: Yes Plan: Now comfort measures only - Plan Summary Summary: Thank you for allowing us to take care of this very pleasant 79-year-old surgical patient. We will continue to follow during his hospitalization and make adjustments in his medications based on the patient's clinical status, Accu-checks, vital signs and laboratory studies. - Time Time Spent with patient: 15-24 minutes
[2020-02-20 21:48] VITALS: BP 132/46
[2020-02-20] MEDS: LATANOPROST 0.005% OPH SOLN 2.5 ML OU SCH (21:50)
[2020-02-21] MEDS ORDERED: FAT EMULSIONS 250 ML IV SCH (10:00)
--- NOTE | 2020-02-22 09:45 | PDOC DISCHARGE SUMMARY ---
General - Admit/Disc Date/PCP Admission Date/Primary Care Provider: 02/10/20 05:09 Discharge Date: 02/21/20 - Discharge Diagnosis Final Diagnosis: secondary to aspiration pneumonia renal failure and sigmoid volvulus - Assessment Summary: This is a 79-year-old male who presents to the hospital 02/10/2020 with abdominal distention nausea and vomiting. He was seen in the emergency room diagnosis of bowel obstruction was made it was determined that he had a sigmoid volvulus. A rectal tube was placed without much resolution of the bowel obstruction. He also was noted to have aspiration pneumonia. He was then taken to surgery after a attempted bowel prep when the rectal tube was placed and he underwent a sigmoid colectomy. He also had a temporary ileostomy done at the same time. Postoperatively he had a deteriorating course he developed increasing creatinine and then renal failure postoperatively as well as worsening pneumonia. He was started on dialysis after a trial assist catheter was placed in his groin. After a number days dialysis he was still deteriorating he was noted to become fluid overloaded and developing anasarca. Eventually his family decided to only perform comfort measures and dialysis was stopped. Shortly thereafter he succumbed to his disease and . At 12:05 AM on 02/21/2020 - Additional Information Resuscitation Status: Comfort Measures Only Referrals: [facility] [Provider Group] Home Medications: Amlodipine Besylate [Norvasc 10 mg Tablet] 10 mg PO DAILY 02/10/20 Aspirin [Adult Low Dose Aspirin EC] 81 mg PO DAILY 02/10/20 Atorvastatin Calcium [Lipitor 40 mg Tablet] 40 mg PO QHS 02/10/20 Dorzolamide HCl/Pf [Dorzolamide 2% Eye Drop] 1 drop OU BID 02/10/20 Ferrous Sulfate [Feosol 325 mg Tablet] 325 mg PO DAILY 02/10/20 Insulin Aspart [Novolog Insulin (Aspart) 100 unit/mL] 5 units SQ WSUPPER 02/10/20 Insulin Detemir [Levemir] 15 units SQ QHS 02/10/20 L.acidoph,Paracasei, B.lactis [Probiotic] 1 cap PO DAILY 02/10/20 Latanoprost [Xalatan 0.005% Oph Soln 2.5 ml] 1 drop OU QHS 02/10/20 Metoprolol Succinate [Toprol Xl 50 mg Tab.sr] 50 mg PO DAILY 02/10/20 Mirtazapine [Remeron 15 mg Tablet] 15 mg PO QHS 02/10/20 Pantoprazole Sodium [Protonix [address] Tablet] 40 mg PO QAM 02/10/20 Trazodone HCl [Desyrel 50 mg Tablet] 25 mg PO QHS 02/10/20 History of Present Illiness History of Present Illness: CHRISTY CANO is a 79 year old male Physical Exam Vital Signs: Temp Pulse Resp BP Pulse Ox 97.4 F 74 32 H 132/46 H 90 L 02/20/20 19:15 02/20/20 19:15 02/20/20 19:15 02/20/20 19:15 02/20/20 19:15 Intake & Output 02/21/20 02/22/20 02/23/20 06:59 06:59 06:59 Intake Total 0 Output Total 1000 Balance -1000 Results Laboratory Results: WBC 10.1 10^3/uL (4.0-10.5) 02/20/20 06:10 RBC 3.70 10^6/uL (4.35-5.55) L 02/20/20 06:10 Hgb 9.9 g/dL (13.5-17.0) L 02/20/20 06:10 Hct 30.4 % (37.9-51.0) L 02/20/20 06:10 MCV 82 fl (80-97) 02/20/20 06:10 MCH 26.8 pg (27.0-33.4) L 02/20/20 06:10 MCHC 32.6 g/dL (32.0-36.0) 02/20/20 06:10 RDW 17.1 % (11.5-14.0) H 02/20/20 06:10 Plt Count 305 10^3/uL (150-450) 02/20/20 06:10 Lymph % (Auto) Not Reportable 02/20/20 06:10 [place]ane % (Auto) Not Reportable 02/20/20 06:10 Eos % (Auto) Not Reportable 02/20/20 06:10 Baso % (Auto) Not Reportable 02/20/20 06:10 Reticulocyte # 0.046 10^6/uL (0.028-0.122) 02/18/20 05:57 Absolute Neuts (auto) Not Reportable 02/20/20 06:10 Absolute Lymphs (auto) Not Reportable 02/20/20 06:10 Absolute Monos (auto) Not Reportable 02/20/20 06:10 Absolute Eos (auto) Not Reportable 02/20/20 06:10 Absolute Basos (auto) Not Reportable 02/20/20 06:10 Total Counted 100 02/20/20 06:10 Seg Neutrophils % Not Reportable 02/20/20 06:10 Seg Neuts % (Manual) 80 % (42-78) H 02/20/20 06:10 Band Neutrophils % 2 % (3-5) L 02/20/20 06:10 Lymphocytes % (Manual) 10 % (13-45) L 02/20/20 06:10 Monocytes % (Manual) 8 % (3-13) 02/20/20 06:10 Eosinophils % (Manual) 0 % (0-6) 02/20/20 06:10 Basophils % (Manual) 0 % (0-2) 02/20/20 06:10 Abs Neuts (Manual) 8.3 10^3/uL (1.7-8.2) H 02/20/20 06:10 Abs Lymphs (Manual) 1.0 10^3/uL (0.5-4.7) 02/20/20 06:10 Abs Monocytes (Manual) 0.8 10^3/uL (0.1-1.4) 02/20/20 06:10 Absolute Eos (Manual) 0.0 10^3/uL (0.0-0.6) 02/20/20 06:10 Abs Basophils (Manual) 0.0 10^3/uL (0.0-0.2) 02/20/20 06:10 Toxic Granulation 1+ 02/19/20 05:58 Platelet Comment ADEQUATE 02/20/20 06:10 Polychromasia 1+ 02/18/20 05:57 Hypochromasia SLIGHT 02/20/20 06:10 Poikilocytosis 1+ 02/19/20 05:58 Anisocytosis 1+ 02/20/20 06:10 Microcytosis 1+ 02/18/20 05:57 Target Cells SLIGHT 02/19/20 05:58 Tear Drop Cells SLIGHT 02/20/20 06:10 Ovalocytes SLIGHT 02/20/20 06:10 [place] Cells 1+ 02/19/20 05:58 Retic Count (auto) 1.28 % (0.66-2.85) 02/18/20 05:57 Sodium 145.7 mmol/L (137-145) H 02/20/20 06:10 Potassium 4.2 mmol/L (3.6-5.0) 02/20/20 06:10 Chloride 117 mmol/L (98-107) H 02/20/20 06:10 Carbon Dioxide 20 mmol/L (22-30) L 02/20/20 06:10 Anion Gap 9 (5-19) 02/20/20 06:10 BUN 81 mg/dL (7-20) H 02/20/20 06:10 Creatinine 4.05 mg/dL (0.52-1.25) H 02/20/20 06:10 Est GFR ( Amer) 17 (>60) L 02/20/20 06:10 Est GFR (MDRD) Non-Af 14 (>60) L 02/20/20 06:10 Glucose 387 mg/dL (75-110) H 02/20/20 06:10 POC Glucose 293 mg/dL (70-110) H 02/20/20 23:21 Lactic Acid 1.1 mmol/L (0.7-2.1) 02/10/20 07:03 Calcium 8.2 mg/dL (8.4-10.2) L 02/20/20 06:10 Magnesium 2.2 mg/dL (1.6-2.3) 02/17/20 06:05 Iron < 10.1 ug/dL (49-181) L 02/18/20 05:57 TIBC 138 ug/dL (250-450) L 02/18/20 05:57 Iron Saturation UNABLE TO CALCULATE % (20% - 50%) 02/18/20 05:57 Transferrin < 80.00 mg/dL (206.00-381.00) L 02/18/20 05:57 Ferritin 294.00 ng/mL (17.9-464.0) 02/18/20 05:57 Total Bilirubin 1.6 mg/dL (0.2-1.3) H 02/20/20 06:10 Direct Bilirubin 0.8 mg/dL (0.0-0.4) H 02/20/20 06:10 Neonat Total Bilirubin Not Reportable 02/20/20 06:10 Neonat Direct Bilirubin Not Reportable 02/20/20 06:10 Neonat Indirect Bili Not Reportable 02/20/20 06:10 AST 23 U/L (17-59) 02/20/20 06:10 ALT 13 U/L (<50) 02/20/20 06:10 Alkaline Phosphatase 61 U/L (38-126) 02/20/20 06:10 Total Protein 4.8 g/dL (6.3-8.2) L 02/20/20 06:10 Albumin 1.9 g/dL (3.5-5.0) L 02/20/20 06:10 Lipase 96.9 U/L (23-300) 02/10/20 01:39 Vitamin B12 615.0 pg/mL (239-931) 02/18/20 05:57 Folate 3.49 ng/mL (>2.76) 02/18/20 05:57 Urine Color YELLOW 02/10/20 06:35 Urine Appearance CLEAR 02/10/20 06:35 Urine pH 5.0 (5.0-9.0) 02/10/20 06:35 Ur Specific [place] 1.040 02/10/20 06:35 Urine Protein 30 mg/dL (NEGATIVE) H 02/10/20 06:35 Urine Glucose (UA) NEGATIVE mg/dL (NEGATIVE) 02/10/20 06:35 Urine Ketones NEGATIVE mg/dL (NEGATIVE) 02/10/20 06:35 Urine Blood NEGATIVE (NEGATIVE) 02/10/20 06:35 Urine Nitrite NEGATIVE (NEGATIVE) 02/10/20 06:35 Urine Bilirubin NEGATIVE (NEGATIVE) 02/10/20 06:35 Urine Urobilinogen NEGATIVE mg/dL (<2.0) 02/10/20 06:35 Ur Leukocyte Esterase NEGATIVE (NEGATIVE) 02/10/20 06:35 Urine WBC (Auto) 1 /HPF 02/10/20 06:35 Urine RBC (Auto) 1 /HPF 02/10/20 06:35 U Hyaline Cast (Auto) 1 /LPF 02/10/20 06:35 Squamous Epi Cells Auto <1 /HPF 02/10/20 06:35 Urine Mucus (Auto) RARE /LPF 02/10/20 06:35 Urine Ascorbic Acid 20 (NEGATIVE) H 02/10/20 06:35 Hep Bs Antigen Negative (Negative) 02/15/20 14:25 Hep Bs Antibody, Quant <3.1 mIU/mL (Immunity>9) L 02/15/20 14:25 Hep B Core Total Ab Negative (Negative) 02/15/20 14:25 HCV Quantitation HCV Not Detected IU/mL (.) 02/15/20 14:25 HCV RNA PCR Test Info Comment (.) 02/15/20 14:25 SARS-CoV-2 (PCR) NEGATIVE (NEGATIVE) 02/13/20 05:25 Blood Type O POSITIVE 02/16/20 06:42 Blood Type Confirm O POSITIVE 02/16/20 06:48 Antibody Screen NEGATIVE 02/16/20 06:42 Crossmatch See Detail 02/16/20 06:42 Impressions: KUB X-Ray 02/10/20 00:00 IMPRESSION: The bowel gas pattern is nonobstructive and nonspecific. Abdomen/Pelvis CT 02/10/20 01:59 IMPRESSION: 1. Colonic obstruction with transition point in the sigmoid colon, indeterminate for sigmoid volvulus versus an internal hernia (although likely sigmoid volvulus). Maximum colonic diameter (at the cecum) 8 cm. 2. No perforation or abscess. 3. Other chronic findings as described. Renal Ultrasound 02/15/20 00:00 IMPRESSION: There is increased echogenicity of the kidneys, suggesting medical renal disease. There is a large cyst on the left kidney. KUB X-Ray 02/15/20 07:58 IMPRESSION: 1. The tip of the enteric tube projects within the gastric lumen. 2. Postoperative free intraperitoneal gas. 3. Diffuse gaseous dilatation of the bowel - correlate for postoperative ileus. Chest X-Ray 02/18/20 00:00 IMPRESSION: 1. Bilateral basilar predominant pleural and parenchymal opacities that could represent a combination of pleural fluid and atelectasis. 2. The tip of the enteric tube projects within the gastric lumen. 3. Free intraperitoneal gas - correlate for recent intra-abdominal surgery. Chest X-Ray 02/19/20 00:00 IMPRESSION: 1. Bibasilar atelectasis and probable small small pleural effusions, stable from previous. 2. Gaseous distention of the colon similar in appearance to previous examination. Cannot entirely exclude pneumoperitoneum at the right hemidiaphragm. Clinical correlation for recent surgical procedure recommended. CT of the abdomen and pelvis may be helpful as clinically indicated.
--- NOTE | 2020-02-25 11:20 | Death Summary ---
Summary Date : 02/21/20 Autopsy: No Resuscitation Status: Comfort Measures Only Hospital Course:: Summary: This is a 79-year-old male who presents to the hospital 02/10/2020 with abdominal distention nausea and vomiting. He was seen in the emergency room diagnosis of bowel obstruction was made it was determined that he had a sigmoid volvulus. A rectal tube was placed without much resolution of the bowel obstruction. He also was noted to have aspiration pneumonia. He was then taken to surgery after a attempted bowel prep when the rectal tube was placed and he underwent a sigmoid colectomy. He also had a temporary ileostomy done at the same time. Postoperatively he had a deteriorating course he developed increasing creatinine and then renal failure postoperatively as well as worsening pneumonia. He was started on dialysis after a trial assist catheter was placed in his groin. After a number days dialysis he was still deteriorating he was noted to become fluid overloaded and developing anasarca. Eventually his family decided to only perform comfort measures and dialysis was stopped. Shortly thereafter he succumbed to his disease and . At 12:05 AM on 02/21/2020
== END 2020-02-21 02:00 | disposition left against medical advice (07) | DRG 329 ==
LOC: ER 00:42 → EH 05:09 → 4S 07:17 → 3S 02-15 16:26
PROVIDERS: ADMIT Surgery; ATTEND Surgery
PROC: 0D9P8ZZ Drainage of Rectum, Via Natural or Artificial Opening Endoscopic (ICD-10-PCS; 2020-02-10)
PROC: 0D1B0Z4 Bypass Ileum to Cutaneous, Open Approach (ICD-10-PCS; 2020-02-13)
PROC: 0DTN0ZZ Resection of Sigmoid Colon, Open Approach (ICD-10-PCS; principal; 2020-02-13 12:30)
PROC: 02HV33Z Insertion of Infusion Device into Superior Vena Cava, Percutaneous Approach (ICD-10-PCS; 2020-02-15)
PROC: B548ZZA Ultrasonography of Superior Vena Cava, Guidance (ICD-10-PCS; 2020-02-15)
PROC: 30233N1 Transfusion of Nonautologous Red Blood Cells into Peripheral Vein, Percutaneous Approach (ICD-10-PCS; 2020-02-16)
PROC: 5A1D70Z Performance of Urinary Filtration, Intermittent, Less than 6 Hours Per Day (ICD-10-PCS; 2020-02-20)
DX: K56.2 Volvulus (principal); J69.0 Pneumonitis due to inhalation of food and vomit; N17.9 Acute kidney failure, unspecified; Q61.01 Congenital single renal cyst; D62 Acute posthemorrhagic anemia; I50.32 Chronic diastolic (congestive) heart failure; J98.11 Atelectasis; E46 Unspecified protein-calorie malnutrition; I11.0 Hypertensive heart disease with heart failure; Z51.5 Encounter for palliative care; E11.9 Type 2 diabetes mellitus without complications; E78.5 Hyperlipidemia, unspecified; D72.829 Elevated white blood cell count, unspecified; I95.89 Other hypotension; K56.7 Ileus, unspecified; E87.6 Hypokalemia; E86.0 Dehydration; Z68.26 Body mass index [BMI] 26.0-26.9, adult; I69.998 Other sequelae following unspecified cerebrovascular disease; Z88.1 Allergy status to other antibiotic agents; Z79.82 Long term (current) use of aspirin; Z79.4 Long term (current) use of insulin; Z79.899 Other long term (current) drug therapy; Z87.891 Personal history of nicotine dependence; Z82.49 Family history of ischemic heart disease and other diseases of the circulatory system; Z83.3 Family history of diabetes mellitus
CPT/HCPCS: 00840; 36415; 36430; 71045; 74018; 74177; 76770; 80048; 80053; 81001; 82040; 82607; 82728; 82746; 82962; 83540; 83550; 83605; 83690; 83735; 84466; 85025; 85045; 86317; 86704; 86850; 86900; 86901; 86920; 87340; 87522; 87635; 88307; 93306; 94799; 96361; 96374; 99285; C9113; C9290; C9803; J0330; J0690; J1100; J1644; J1815; J1940; J2250; J2270; J2405; J2704; J2710; J3010; J3480; J3490; J7030; J7040; J7120; P9016; Q5105